=== PATIENT | male | born 1990 | race Caucasian/White ===

== ENCOUNTER 2023-07-02 14:58 | Inpatient (IN) ==
--- NOTE | 2023-07-02 15:21 | XRay Report ---
SINGLE VIEW CHEST CLINICAL HISTORY: Sepsis. FINDINGS: A PA chest radiograph is compared to study dated 05/15/2023. The cardiomediastinal silhouet te is unremarkable. Question mild patchy airspace opacities in the lingula. No pleural effusion or pn eumothorax is seen. The bony thorax is grossly intact. IMPRESSION: Question mild airspace opacities in the lingula. Correlate clinically for evidence of a m ild pneumonitis. Radiographic follow-up to resolution is recommended. ACT 112: Negative or not required by law. Electronically signed by: Sen Reis M.D. 07/02/2023 3:19 PM
--- NOTE | 2023-07-02 16:33 | Emergency Department Note ---
Impression & Plan Cellulitis of leg, History of intravenous drug abuse, Acute hyponatremia, Left lower lobe pneumonia ED Provider Note Provider: Allen Cohn MD DATE OF SERVICE: 07/02/2023 CHIEF COMPLAINT: Fever, wounds on legs HISTORY OF PRESENT ILLNESS: Patient is a 32-year-old gentleman history of IV drug use last use this past with fentanyl that he overdosed on last week. Evidently overdosed at the methadone clinic and thus has not returned to the last several days. States last 4 days he has had fevers as well as swelling and wounds of his legs. History of cellulitis and infection in his legs previously. Chronic swelling in the past as well. Worsening pain of the left lower leg in the right upper leg. Reports headache currently but denies striking his head. Denies significant chest pain but does with persistent questioning endorse a bit of shortness of breath. Denies abdominal pain. States he has not ate or drink much as he has been laying in bed for the last several days. Evidently promoted to come here today as father came to his residence and used a multifocal button grinder to cut open the door. PAST MEDICAL HISTORY: As noted above MEDICATIONS: Normally on methadone but not the last several days SOCIAL HISTORY: IV drug use with fentanyl PHYSICAL EXAM: GENERAL: alert and oriented in no acute distress on stretcher Head: normocephalic and atraumatic EYES: No injection, discharge or icterus. PERRL, EOMI. NECK: Trachea midline. Supple. ENT: Mucous membranes pink and moist. LUNGS: Airway patent. No retractions. Breath sounds clear with good air entry bilaterally. HEART: Regular rate and rhythm. No chest wall tenderness ABDOMEN: Soft and non-tender, without guarding or rebound. SKIN: Acyanotic, warm, dry, without rashes EXTREMITIES: Without swelling, tenderness or deformity NEUROLOGICAL: No focal deficits. No aphasia. No facial droop or slurred speech. Ambulatory. EK bpm sinus tachycardia. No PVC or PAC. No acute ST segment elevation or depression with QTc 422. EKG 2: 102 bpm sinus tachycardia. No PVC or PAC. No acute ST segment elevation or depression QTc 445. CONTINUOUS CARDIAC MONITORING: was ordered and showed a heart rate of 90s to 120s bpm in normal sinus rhythm to sinus tachycardia Patient's laboratory studies and imaging reviewed. Differential includes Infection, endocarditis, dehydration, metabolic abnormality, hypo/hyperglycemia, electrolyte disturbance, anemia, hypoxia, cardiac sources, toxicologic, neurologic, as well as other pathologies. IMPRESSION/MEDICAL DECISION MAKING: No significant focal neurological deficits. No trauma history reported. Scattered wounds in the extremities with erythema of the right thigh and left lower leg in particular noted without crepitus. Question cellulitis, sepsis, bacteremia, possible endocarditis. Does not seem meningitic at this time but does complain of a headache. Will obtain a CT scan of the head to exclude embolic phenomena or signs of bleeding although he does not report any trauma. Some chronic swelling of the legs but no hypoxia and low suspicion for acute heart failure or decompensation at this time or pulmonary embolism. Does report some shortness of breath on persistent questioning. Will cover broadly with cefepime and vancomycin in discussion with pharmacy. Given some IV fluid but a bit cautious given his history of fluid overload and swelling of his legs. Doubt given the bilateral nature and erythema around the wounds of his legs this represents DVT. Benign abdomen. Chest x-ray here questions a lingular infiltrate. Will obtain a CT of the chest for further differentiation and to exclude an occult embolism phenomenon with a history of IV drug use. Some Toradol given for pain given his history of narcotic abuse. Doubt this represents necrotizing fasciitis but likely a diffuse cellulitis. Does have a significant leukocytosis 27,000. Normal platelet count. Slightly worsened anemia of 10.8. Hyponatremia 126 is noted with some mild hypomagnesemia of 1.5. No significant renal dysfunction or anion gap. Lactate is normal. Doubt septic shock. Given additional IV fluids for total of 1.75 L normal saline. Avoiding additional aggressive IV fluid hydration due to his history of edema. Procalcitonin elevated 2.51. CT of the head and CT angiogram of the chest per radiology report somewhat compromised head CT but no evidence of acute intracranial bleed. CTA of the chest shows no PE but evidence of a left lobe pneumonia. Again receiving antibiotics. Not hypoxic here. Patient agreeable for admission. Again cover broadly with vancomycin and cefepime at this time. Given Tylenol for additional pain control as narcotics will likely be ineffective given his history of abuse here. Did have some recurrent chest discomfort already received some Toradol. Will give a small amount of morphine to see if it has some effect to help with discomfort. Hospitalist team contacted. DIAGNOSIS: History of IV drug use, sepsis, leg cellulitis, hyponatremia, left lower lobe pneumonia DISPOSITION: Hospitalist will evaluate Patient was agreeable with this plan. Past Med/Surg History Medical History Methamphetamine abuse Surgical History No pertinent past surgical history Social History Smoking Status: Current every day smoker Tobacco Type: Cigarettes Preferred Language: Latvian Feels Safe at Home: Yes Allergies Allergies Allergy/AdvReac Type Severity Reaction Status Date / Time chlorpromazine Allergy Severe facial Verified 07/02/23 16:43 [From Thorazine] swelling and agitation amoxicillin Allergy Intermediate leg and Verified 12/11/22 19:28 feet swelling Home Meds Home Medications Medication Instructions Recorded Confirmed No Known Home Medications 07/02/23 07/02/23 Results & Data (ED) Vital Signs Vital Signs - 24 hr 07/02/23 15:03 07/02/23 16:32 07/02/23 17:14 Temperature 38.2 C H Temperature Source Temporal Artery Scan Pulse Rate 116 H 110 H Pulse Rate [Apical] 107 H Pulse Rhythm Regular Pulse Strength Normal Respiratory Rate 18 26 H Respiratory Effort / Characteristics Non-Labored Spontaneous Respiratory Depth Normal Respiratory Pattern Regular Tachypnea Blood Pressure 120/69 Blood Pressure [Left Arm] 134/75 Blood Pressure Mean 86 Blood Pressure Mean [Left Arm] 94 Blood Pressure Position Sitting Pulse Oximetry 100 96 Oxygen Delivery Method Room Air Room Air Sepsis Recent Fever Within 48 Hours No Sepsis New/Unexplained Change in Mental Status No Sepsis Action Taken by Nursing Physician Notified 07/02/23 17:14 07/02/23 18:46 Temperature Temperature Source Pulse Rate 112 H Pulse Rate [Apical] 119 H Pulse Rhythm Regular Pulse Strength Respiratory Rate 24 24 Respiratory Effort / Characteristics Respiratory Depth Normal Respiratory Pattern Blood Pressure Blood Pressure [Left Arm] Blood Pressure Mean Blood Pressure Mean [Left Arm] Blood Pressure Position Pulse Oximetry 96 96 Oxygen Delivery Method Room Air Room Air Sepsis Recent Fever Within 48 Hours Sepsis New/Unexplained Change in Mental Status Sepsis Action Taken by Nursing Laboratory Data 07/02/23 16:54 07/02/23 16:54 Lab Results 07/02/23 Range/Units 16:54 WBC 27.55 H (4.8-10.8) K/ul RBC 3.84 L (4.70-6.10) M/uL Hgb 10.8 L (14.0-18.0) g/dl Hct 31.6 L (42.0-52.0) % MCV 82.3 (80.0-100.0) fL MCH 28.1 (25.0-34.0) pg MCHC 34.2 (32.0-36.0) g/dL RDW Std Deviation 39.4 (36.4-46.3) fL RDW Coeff of Randa 13.1 (11.5-14.5) % Plt Count 257 (130-400) K/uL MPV 9.7 (9.4-12.4) fL Immature Gran % (Auto) 2.2 % Neut % (Auto) 92.5 % Lymph % (Auto) 1.3 % Moore % (Auto) 3.8 % Eos % (Auto) 0.0 % Baso % (Auto) 0.2 % Neut # (Auto) 25.46 H (1.40-6.50) K/uL Lymph # (Auto) 0.37 L (1.20-3.40) K/uL Moore # (Auto) 1.05 H (0.11-0.59) K/uL Eos # (Auto) 0.00 (0.00-0.50) K/uL Baso # (Auto) 0.06 (0.00-0.20) K/uL Immature Gran # (Auto) 0.61 H (0.01-0.20) K/uL Dohle Bodies 1+ PT 13.1 H (9.0-12.0) Seconds INR 1.2 H (0.9-1.1) APTT 39 H (21-31) Seconds PTT Ratio 1.4 Sodium 126 L (136-145) mmol/L Potassium 3.6 (3.5-5.1) mmol/L Chloride 92 L (98-107) mmol/L Carbon Dioxide 26 (21-32) mmol/L Anion Gap 8 (3-11) BUN 12 (6-23) mg/dl Creatinine 0.78 (0.6-1.4) mg/dl Est Cr Clr Drug Dosing 149.2 ml/min Est GFR ( Amer) 138.4 ml/min Est GFR (Non-Af Amer) 119.4 ml/min BUN/Creatinine Ratio 15.4 (10-20) Glucose 105 H (70-99(Fasting)) mg/dl Lactate 1.9 (0.4-2.0) mmol/L Calcium 8.8 (8.6-10.3) mg/dl Magnesium 1.5 L (1.7-2.4) mg/dl Total Bilirubin 0.6 (0.2-1.0) mg/dl AST 25 (13-39) U/L ALT 24 (7-52) U/L Alkaline Phosphatase 65 (34-104) U/L Troponin I High Sens 9.5 (0-20) pg/ml Total Protein 6.1 (6.0-8.3) gm/dl Albumin 3.5 (3.4-5.0) gm/dl Globulin 2.6 (2.5-4.0) gm/dl Albumin/Globulin Ratio 1.3 (0.9-2) Procalcitonin 2.51 H (0-0.5) ng/ml Administered Medications Vancomycin HCl 1,750 mg/ (Sodium Chloride) 535 mls @ 200 mls/hr IV NOW ONE Stop: 07/02/23 19:59 Last Admin: 07/02/23 18:13 Dose: 200 mls/hr Documented By: MANUEL Discontinued Medications Acetaminophen (Acetaminophen 500 Mg Tab) 1,000 mg PO NOW STA Stop: 07/02/23 17:53 Last Admin: 07/02/23 18:13 Dose: 1,000 mg Documented By: MANUEL Sodium Chloride (Nss) 1,000 mls @ 999 mls/hr IV .Q1H1M ONE Stop: 07/02/23 17:59 Last Infusion: 07/02/23 18:25 Dose: Infused Documented By: Admin: 07/02/23 17:19 Dose: 999 mls/hr Documented By: MANUEL Cefepime HCl (Maxipime) 2,000 mg in 20 mls @ 5 mls/min IV NOW STA; Protocol Stop: 07/02/23 17:04 Last Admin: 07/02/23 17:19 Dose: 5 mls/min Documented By: MANUEL Sodium Chloride (Nss) 1,000 mls @ 999 mls/hr IV .Q1H1M ONE Stop: 07/02/23 18:35 Last Admin: 07/02/23 18:26 Dose: Not Given Documented By: MANUEL Sodium Chloride (Nss) 500 mls @ 999 mls/hr IV .Q31M ONE Stop: 07/02/23 18:05 Last Admin: 07/02/23 18:12 Dose: 999 mls/hr Documented By: MANUEL Sodium Chloride (Nss) 250 mls @ 999 mls/hr IV .Q16M ONE Stop: 07/02/23 17:50 Last Infusion: 07/02/23 18:41 Dose: Infused Documented By: Admin: 07/02/23 18:12 Dose: 999 mls/hr Documented By: MANUEL Magnesium Sulfate/Dextrose (Magnesium Sulfate / D5w) 1 gm in 100 mls @ 200 mls/hr IV Q30M ANIBAL Stop: 07/02/23 18:44 Last Admin: 07/02/23 18:13 Dose: 200 mls/hr Documented By: MANUEL Ioversol (Optiray 320 125ml) 109 ml IV ONCE ONE Stop: 07/02/23 18:34 Last Admin: 07/02/23 18:34 Dose: 109 ml Documented By: KATIUSKA Ketorolac Tromethamine (Ketorolac Tromethamine 15 Mg/Ml Vial) 15 mg IV NOW STA Stop: 07/02/23 17:00 Last Admin: 07/02/23 17:19 Dose: 15 mg Documented By: MANUEL Imaging Data Radiologist's Impression: Chest X-Ray 07/02/23 15:06 SINGLE VIEW CHEST CLINICAL HISTORY: Sepsis. FINDINGS: A PA chest radiograph is compared to study dated 05/15/2023. The cardiomediastinal silhouette is unremarkable. Question mild patchy airspace opacities in the lingula. No pleural effusion or pneumothorax is seen. The bony thorax is grossly intact. IMPRESSION: Question mild airspace opacities in the lingula. Correlate clinically for evidence of a mild pneumonitis. Radiographic follow-up to resolution is recommended. ACT 112: Negative or not required by law. Electronically signed by: Sen Reis M.D. 07/02/2023 3:[address] 07/02/23 17:00 CT SCAN OF THE BRAIN WITHOUT IV CONTRAST CLINICAL HISTORY: Headache. Fever. IV drug use. COMPARISON STUDY: CT of the brain dated 05/15/2023. TECHNIQUE: Unenhanced axial CT scan of the brain is performed from the vertex to the skull base. A dose lowering technique was utilized adhering to the principles of ALARA. The patient was scanned twice due to motion artifact. FINDINGS: Brain parenchyma: The brain parenchyma is normal in appearance. There is no hemorrhage, mass effect, or evidence of acute territorial ischemia by CT criteria. Acosta-white matter differentiation is preserved. No extra-axial fluid collection is seen. Ventricles, sulci, cisterns: Normal in configuration. Intracranial vasculature: The visualized intracranial vasculature at the skull base is normal in appearance. Calvarium: Unremarkable. Sinuses and mastoids: The visualized paranasal sinuses are clear. The mastoid air cells are well pneumatized. Orbits: The bony orbits are grossly intact. IMPRESSION: There is no hemorrhage, mass effect, or evidence of acute territorial ischemia by CT criteria. ACT 112: Negative or not required by law. Electronically signed by: Sen Reis M.D. 07/02/2023 6:45 PM Chest CTA 07/02/23 17:16 CT ANGIOGRAM OF THE CHEST CLINICAL HISTORY: Fever. Edema. History of intravenous drug use. COMPARISON STUDY: Chest x-ray dated 07/02/2023 TECHNIQUE: Following the IV administration of 109 cc of Optiray 320, CT angiogram of the chest was performed from the upper abdomen to the thoracic inlet utilizing the pulmonary embolus protocol. Images are reviewed in the axial, sagittal, and coronal planes. 3-D MIPS images are created and assessed. IV contrast was administered without complication. A dose lowering technique was utilized adhering to the principles of ALARA. The examination is degraded by suboptimal contrast opacification of the pulmonary arteries. There is also motion artifact. CT DOSE: 1879.44 mGy.cm FINDINGS: Thyroid: Imaged portions of the thyroid gland are normal in size and attenuation. Thoracic aorta: The thoracic aorta is normal in caliber and demonstrates standard 3-vessel arch anatomy. No dissection is seen. Pulmonary vasculature: The pulmonary trunk is normal in caliber. There are no filling defects identified in main, lobar, or proximal segmental pulmonary branches to suggest pulmonary embolus. Evaluation of the peripheral branches is degraded by motion artifact and lack of contrast opacification. Heart: The heart is mildly enlarged and without pericardial effusion. Lungs and pleural spaces: Evaluation of the lung parenchyma is degraded by motion artifact. There is patchy airspace consolidation in the left lower lobe and lingula typical for pneumonia. There is trace left pleural effusion. The right lung appears clear. The trachea and central airways are patent. Mediastinum: There are numerous prominent mediastinal lymph nodes which measure up to 9 mm in short axis. Ailyn: Clear. Axillae: There is no axillary lymphadenopathy. Upper abdomen: The spleen is mildly enlarged measuring 13.5 cm in length. Partially visualized upper abdominal viscera is otherwise grossly unremarkable. Skeletal structures: No lytic or blastic bony lesions are seen. Soft tissues: Gynecomastia is noted. IMPRESSION: 1. There is no evidence of central pulmonary embolus in the main, lobar, or proximal segmental pulmonary arteries. The distal segmental and subsegmental branches are not well assessed. 2. Airspace consolidation in the left lower lobe and lingula is typical for pneumonia. Clinical correlation will be required and radiographic follow-up to resolution is recommended. 3. Trace of pleural effusion. 4. There are numerous prominent mediastinal lymph nodes which are nonspecific and likely reactive. 5. Mild splenomegaly. 6. Additional findings as above. ACT 112: Negative or not required by law. Electronically signed by: Sen Reis M.D. 07/02/2023 7:02 PM Discharge Plan Visit Data Chief Complaint: Edema To Extremity Stated Complaint: EDEMA BILAT ANKLES ED Provider: Allen Cohn Discharge Problem: Cellulitis of leg, History of intravenous drug abuse, Acute hyponatremia, Left lower lobe pneumonia Patient Disposition: Being Evaluated by Hospitalist Forms Stand Alone Forms: [facility] Prescriptions Prescriptions: No Action No Known Home Medications Referrals Referrals: Nir Lucio MD [Primary Care Provider] - Discharge Problem: Cellulitis of leg Qualifiers: Laterality: unspecified laterality Qualified Code(s): L03.119 - Cellulitis of unspecified part of limb Left lower lobe pneumonia Qualifiers: Pneumonia type: due to unspecified organism Qualified Code(s): J18.9 - Pneumonia, unspecified organism
[2023-07-02] MEDS ORDERED: PIPERACILLIN/TAZOBACTAM 4.5 GM/100 ML BAG IV ONE (16:59)
[2023-07-02] MEDS ORDERED: Patient's HEIGHT &/or WEIGHT Needed STA (17:02)
[2023-07-02 17:16] LABS: Hematocrit (blood only) 31.6 % (42.0-52.0); Hemoglobin 10.8 g/dl (14.0-18.0); Mean Corpuscular Hemoglobin 28.1 pg (25.0-34.0); Mean Corpuscular Hgb Conc 34.2 g/dL (32.0-36.0); Mean Corpuscular Volume 82.3 fL (80.0-100.0); Mean Platelet Volume 9.7 fL (9.4-12.4); Platelet Count 257 K/uL (130-400); RDW Coefficient of Variation 13.1 % (11.5-14.5); RDW Standard Deviation 39.4 fL (36.4-46.3); Red Blood Count 3.84 M/uL (4.70-6.10); White Blood Count 27.55 K/ul (4.8-10.8)
[2023-07-02] MEDS: CEFEPIME 2,000 MG/20 ML VIAL IV STA (17:19)
[2023-07-02] MEDS: SODIUM CHLORIDE 0.9% 1,000 ML IV ONE ×2 (17:19→18:26)
[2023-07-02] MEDS ORDERED: VANCOMYCIN CONSULT ACTIVE PRN (17:19)
[2023-07-02] MEDS: KETOROLAC TROMETHAMINE 15 MG/ML VIAL IV STA (17:19)
[2023-07-02 17:33] LABS: Albumin Globulin Ratio 1.3 (0.9-2); Albumin Level 3.5 gm/dl (3.4-5.0); BUN Creatinine Ratio 15.4 (10-20); Bilirubin,Total 0.6 mg/dl (0.2-1.0); Calcium 8.8 mg/dl (8.6-10.3); Creatinine Clr Calc Pharmacy 149.2 ml/min; Est GFR (African American) 138.4 ml/min; Est GFR (Non-African American) 119.4 ml/min; Globulin 2.6 gm/dl (2.5-4.0); Magnesium 1.5 mg/dl (1.7-2.4); Potassium 3.6 mmol/L (3.5-5.1); Total Protein 6.1 gm/dl (6.0-8.3)
[2023-07-02 17:35] LABS: Basophils # (auto) 0.06 K/uL (0.00-0.20); Basophils % (auto) 0.2 %; Dohle Bodies 1+; Immature Granulocytes # (auto) 0.61 K/uL (0.01-0.20); Immature Granulocytes % (auto) 2.2 %; Lymphocytes # (auto) 0.37 K/uL (1.20-3.40); Lymphocytes % (auto) 1.3 %; Monocytes # (auto) 1.05 K/uL (0.11-0.59); Monocytes % (auto) 3.8 %; Neutrophils # (auto) 25.46 K/uL (1.40-6.50); Neutrophils % (auto) 92.5 %
[2023-07-02 17:39] LABS: Troponin I High Sensitivity 9.5 pg/ml (0-20)
[2023-07-02 17:43] LABS: INR 1.2 (0.9-1.1); Partial Thromboplastin Ratio 1.4; Partial Thromboplastin Time 39 Seconds (21-31); Prothrombin Time 13.1 Seconds (9.0-12.0)
[2023-07-02] MEDS: SODIUM CHLORIDE 0.9% 250 ML IV ONE (18:12)
[2023-07-02] MEDS: SODIUM CHLORIDE 0.9% 500 ML IV ONE (18:12)
[2023-07-02] MEDS: MAGNESIUM SULFATE / D5W 1 GM/100 ML BAG IV SCH (18:13)
[2023-07-02] MEDS: VANCOMYCIN HCL 1,750 MG in SODIUM CHLORIDE 0.9% 500 ML IV ONE (18:13)
[2023-07-02] MEDS: ACETAMINOPHEN 500 MG TAB PO STA (18:13)
[2023-07-02] MEDS: OPTIRAY 320 125ml IV ONE (18:34)
--- NOTE | 2023-07-02 18:46 | CT Scan Report ---
CT SCAN OF THE BRAIN WITHOUT IV CONTRAST CLINICAL HISTORY: Headache. Fever. IV drug use. COMPARISON STUDY: CT of the brain dated 05/15/2023. TECHNIQUE: Unenhanced axial CT scan of the brain is performed from the vertex to the skull base. A d ose lowering technique was utilized adhering to the principles of ALARA. The patient was scanned twic e due to motion artifact. FINDINGS: Brain parenchyma: The brain parenchyma is normal in appearance. There is no hemorrhage, mass effect, or evidence of acute territorial ischemia by CT criteria. Acosta-white matter differentiation is preser amanda. No extra-axial fluid collection is seen. Ventricles, sulci, cisterns: Normal in configuration. Intracranial vasculature: The visualized intracranial vasculature at the skull base is normal in appe arance. Calvarium: Unremarkable. Sinuses and mastoids: The visualized paranasal sinuses are clear. The mastoid air cells are well pneu matized. Orbits: The bony orbits are grossly intact. IMPRESSION: There is no hemorrhage, mass effect, or evidence of acute territorial ischemia by CT liane [place]. ACT 112: Negative or not required by law. Electronically signed by: Sen Reis M.D. 07/02/2023 6:45 PM
--- NOTE | 2023-07-02 19:04 | CT Scan Report ---
CT ANGIOGRAM OF THE CHEST CLINICAL HISTORY: Fever. Edema. History of intravenous drug use. COMPARISON STUDY: Chest x-ray dated 07/02/2023 TECHNIQUE: Following the IV administration of 109 cc of Optiray 320, CT angiogram of the chest was pe rformed from the upper abdomen to the thoracic inlet utilizing the pulmonary embolus protocol. Images are reviewed in the axial, sagittal, and coronal planes. 3-D MIPS images are created and assessed. I V contrast was administered without complication. A dose lowering technique was utilized adhering to the principles of ALARA. The examination is degraded by suboptimal contrast opacification of the pul monary arteries. There is also motion artifact. CT DOSE: 1879.44 mGy.cm FINDINGS: Thyroid: Imaged portions of the thyroid gland are normal in size and attenuation. Thoracic aorta: The thoracic aorta is normal in caliber and demonstrates standard 3-vessel arch anato my. No dissection is seen. Pulmonary vasculature: The pulmonary trunk is normal in caliber. There are no filling defects identif ied in main, lobar, or proximal segmental pulmonary branches to suggest pulmonary embolus. Evaluation of the peripheral branches is degraded by motion artifact and lack of contrast opacification. Heart: The heart is mildly enlarged and without pericardial effusion. Lungs and pleural spaces: Evaluation of the lung parenchyma is degraded by motion artifact. There is patchy airspace consolidation in the left lower lobe and lingula typical for pneumonia. There is trac e left pleural effusion. The right lung appears clear. The trachea and central airways are patent. Mediastinum: There are numerous prominent mediastinal lymph nodes which measure up to 9 mm in short a xis. Ailyn: Clear. Axillae: There is no axillary lymphadenopathy. Upper abdomen: The spleen is mildly enlarged measuring 13.5 cm in length. Partially visualized upper abdominal viscera is otherwise grossly unremarkable. Skeletal structures: No lytic or blastic bony lesions are seen. Soft tissues: Gynecomastia is noted. IMPRESSION: 1. There is no evidence of central pulmonary embolus in the main, lobar, or proximal segmental pulmon jasper arteries. The distal segmental and subsegmental branches are not well assessed. 2. Airspace consolidation in the left lower lobe and lingula is typical for pneumonia. Clinical corre lation will be required and radiographic follow-up to resolution is recommended. 3. Trace of pleural effusion. 4. There are numerous prominent mediastinal lymph nodes which are nonspecific and likely reactive. 5. Mild splenomegaly. 6. Additional findings as above. ACT 112: Negative or not required by law. Electronically signed by: Sen Reis M.D. 07/02/2023 7:02 PM
[2023-07-02] MEDS: MoRPHine SULFATE 4 MG/ML 1 ML CARP\\VIAL IV STA (19:34)
[2023-07-02 20:02] LABS: Thyroid Stimulating Hormone 1.165 uIu/ml (0.300-4.500)
--- NOTE | 2023-07-02 20:19 | History & Physical Report ---
Date of Service July 02, 2023 Assessment & Plan (1) Sepsis: Plan: Multifactorial: Community-acquired pneumonia possible aspiration due to recent fentanyl overdose Recurrent LE cellulitis (left greater than the right) secondary to IVDU, rule out LLE abscess/osteomyelitis, rule out DVT Rule out endocarditis UGIB History GERD, not on maintenance medication Melanotic stool noted on rectal exam at the ER Acute on chronic anemia secondary to above Hyponatremia secondary to illness, diuretic prescription from recent ER visit chronic pain on methadone, methadone from local clinic currently on hold due to substance abuse HCV status post Mavyret Rx mood disorder, not on maintenance medications, patient denies suicidality Narcotic induced constipation ongoing tobacco abuse Medical telemetry CS, Doxycycline, Cefepime, Flagyl CT left lower extremity with contrast (12 hours after IV contrast for CT PE study cleared) re: recurrent swelling rule out abscess May need MRI to definitely rule out osteomyelitis if CT negative LE venous Dopplers rule out DVT TTE Re: Chest pain rule out endocarditis Further management contingent on workup results IV PPI, GI consult for UGIB N.p.o. after midnight in anticipation of endoscopy in a.m. Anemia workup, transfuse PRBC if hemoglobin less than 7 and or for symptomatic anemia Hyponatremia workup Follow serum sodium after multiple fluid boluses given at the ER Judicious narcotic use in light of drug abuse history Bowel regimen Nicotine patch as needed DVT prophylaxis. SCDs if no DVT on ultrasound Re: GI bleed Full code Text document was generated using Zady voice recognition software. It may contain grammatical or spelling errors. Kindly contact undersigned for clarification of any documentation item in question. History of Present Illness Chief Complaint: Fever, weakness, worsening leg swelling Primary Care Provider: Nir Lucio MD History obtained from patient and records. Medical history significant for chronic pain on methadone, HCV status post Mavyret Rx, GERD, mood disorder, chronic anemia (baseline hemoglobin 11-12), ongoing tobacco abuse. Patient seen at PCP's office on 2 occasions last year for leg cellulitis. Admits to shooting drugs into his veins. Leg swelling improved with outpatient antibiotic courses. Recent [facility] ER visit last month for shortness of breath, bilateral leg swelling and syncope. Swelling improved with Bactrim, Augmentin, and Lasix Rx. Patient noted bilateral leg swelling more on the left than the last week. No abdominal distention, patient actually losing weight. No fever, no chills. Patient methadone currently on hold from local methadone clinic due to patient presenting at the clinic "high on other drugs" 4 days ago. Admits to snorting fentanyl leading to overdose night before he went to clinic. Increased weakness over the last few days. Junky cough productive of yellow sputum. Denies aspiration. Not sure about sick contacts. Patient completed COVID-19 vaccination. Fever chills at home. Achy headache and chest pain symptoms from coughing. No abdominal pain or emesis symptoms. No BM for 1 week as per patient. Denies OTC NSAID intake Patient found at home by father to be weak and sick looking. Patient brought to ER for evaluation. NSS, Cefepime and Vancomycin administered at the ER. 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 Allergy/AdvReac Type Severity Reaction Status Date / Time chlorpromazine Allergy Severe facial Verified 07/02/23 16:43 [From Thorazine] swelling and agitation amoxicillin Allergy Intermediate leg and Verified 12/11/22 19:28 feet swelling Home Medications Medication Instructions Recorded Confirmed Type methadone 200 mg PO DAILY 07/02/23 07/02/23 History Past Med/Surg History Medical History Methamphetamine abuse Surgical History No pertinent past surgical history Social History Smoking Status: Current every day smoker Tobacco Type: Cigarettes Preferred Language: [place] Citizen Feels Safe at Home: Yes Review of Systems Review of Systems: As per HPI, all other systems reviewed and negative Physical Exam Physical Exam: GENERAL: Comfortable, pleasant, ill-appearing, no respiratory distress SKIN: Multiple dark papular lesions noted over extremities and trunk, pallor, warm HEENT: Pale palpebral conjunctivae, no ptosis, dry buccal mucosa NECK : Supple, no tenderness CHEST : CTA, no tenderness HEART : RRR, no obvious murmurs ABDOMEN: Some distention, nontender RECTAL : Intact sphincter, melanotic stool (FOBT positive) EXTREMITIES : Bilateral LE swelling, LLE erythema with minimal tenderness, no other conspicuous deformities noted NEUROLOGIC : Coherent, no facial asymmetry, no other gross focality Results & Data Results & Data Vital Signs (Past 12 Hours) Vital Signs Temp Pulse Pulse Resp BP BP Pulse Ox 07/02/23 20:00 37.2 C 95 H 22 110/64 98 07/02/23 19:43 97 07/02/23 18:46 119 H 24 96 07/02/23 17:14 112 H 24 96 07/02/23 17:14 107 H 26 H 134/75 96 07/02/23 16:32 110 H 07/02/23 15:03 38.2 C H 116 H 18 120/69 100 O2 Del Method 07/02/23 20:00 Room Air 07/02/23 19:43 Room Air 07/02/23 18:46 Room Air 07/02/23 17:14 Room Air 07/02/23 17:14 Room Air 07/02/23 16:32 07/02/23 15:03 Room Air Laboratory Results Laboratory Results WBC 27.55 K/ul (4.8-10.8) H 07/02/23 16:54 RBC 3.84 M/uL (4.70-6.10) L 07/02/23 16:54 Hgb 10.8 g/dl (14.0-18.0) L 07/02/23 16:54 Hct 31.6 % (42.0-52.0) L 07/02/23 16:54 MCV 82.3 fL (80.0-100.0) 07/02/23 16:54 MCH 28.1 pg (25.0-34.0) 07/02/23 16:54 MCHC 34.2 g/dL (32.0-36.0) 07/02/23 16:54 RDW Std Deviation 39.4 fL (36.4-46.3) 07/02/23 16:54 RDW Coeff of Randa 13.1 % (11.5-14.5) 07/02/23 16:54 Plt Count 257 K/uL (130-400) 07/02/23 16:54 MPV 9.7 fL (9.4-12.4) 07/02/23 16:54 Immature Gran % (Auto) 2.2 % 07/02/23 16:54 Neut % (Auto) 92.5 % 07/02/23 16:54 Lymph % (Auto) 1.3 % 07/02/23 16:54 Drew % (Auto) 3.8 % 07/02/23 16:54 Eos % (Auto) 0.0 % 07/02/23 16:54 Baso % (Auto) 0.2 % 07/02/23 16:54 Neut # (Auto) 25.46 K/uL (1.40-6.50) H 07/02/23 16:54 Lymph # (Auto) 0.37 K/uL (1.20-3.40) L 07/02/23 16:54 Drew # (Auto) 1.05 K/uL (0.11-0.59) H 07/02/23 16:54 Eos # (Auto) 0.00 K/uL (0.00-0.50) 07/02/23 16:54 Baso # (Auto) 0.06 K/uL (0.00-0.20) 07/02/23 16:54 Immature Gran # (Auto) 0.61 K/uL (0.01-0.20) H 07/02/23 16:54 Dohle Bodies 1+ 07/02/23 16:54 PT 13.1 Seconds (9.0-12.0) H 07/02/23 16:54 INR 1.2 (0.9-1.1) H 07/02/23 16:54 APTT 39 Seconds (21-31) H 07/02/23 16:54 PTT Ratio 1.4 07/02/23 16:54 Sodium 126 mmol/L (136-145) L 07/02/23 16:54 Potassium 3.6 mmol/L (3.5-5.1) 07/02/23 16:54 Chloride 92 mmol/L (98-107) L 07/02/23 16:54 Carbon Dioxide 26 mmol/L (21-32) 07/02/23 16:54 Anion Gap 8 (3-11) 07/02/23 16:54 BUN 12 mg/dl (6-23) 07/02/23 16:54 Creatinine 0.78 mg/dl (0.6-1.4) 07/02/23 16:54 Est Cr Clr Drug Dosing 149.2 ml/min 07/02/23 16:54 Est GFR ( Amer) 138.4 ml/min 07/02/23 16:54 Est GFR (Non-Af Amer) 119.4 ml/min 07/02/23 16:54 BUN/Creatinine Ratio 15.4 (10-20) 07/02/23 16:54 Glucose 105 mg/dl (70-99(Fasting)) H 07/02/23 16:54 Osmolality 262 mOsm/kg (280-300) L 07/02/23 16:54 Lactate 1.9 mmol/L (0.4-2.0) 07/02/23 16:54 Calcium 8.8 mg/dl (8.6-10.3) 07/02/23 16:54 Magnesium 1.5 mg/dl (1.7-2.4) L 07/02/23 16:54 Total Bilirubin 0.6 mg/dl (0.2-1.0) 07/02/23 16:54 AST 25 U/L (13-39) 07/02/23 16:54 ALT 24 U/L (7-52) 07/02/23 16:54 Alkaline Phosphatase 65 U/L (34-104) 07/02/23 16:54 Troponin I High Sens 9.5 pg/ml (0-20) 07/02/23 16:54 Total Protein 6.1 gm/dl (6.0-8.3) 07/02/23 16:54 Albumin 3.5 gm/dl (3.4-5.0) 07/02/23 16:54 Globulin 2.6 gm/dl (2.5-4.0) 07/02/23 16:54 Albumin/Globulin Ratio 1.3 (0.9-2) 07/02/23 16:54 Procalcitonin 2.51 ng/ml (0-0.5) H 07/02/23 16:54 TSH 1.165 uIu/ml (0.300-4.500) 07/02/23 16:54 Impressions Chest X-Ray 07/02/23 15:06 SINGLE VIEW CHEST CLINICAL HISTORY: Sepsis. FINDINGS: A PA chest radiograph is compared to study dated 05/15/2023. The cardiomediastinal silhouette is unremarkable. Question mild patchy airspace opacities in the lingula. No pleural effusion or pneumothorax is seen. The bony thorax is grossly intact. IMPRESSION: Question mild airspace opacities in the lingula. Correlate clinically for evidence of a mild pneumonitis. Radiographic follow-up to resolution is recommended. ACT 112: Negative or not required by law. Electronically signed by: Sen Reis M.D. 07/02/2023 3:[address] 07/02/23 17:00 CT SCAN OF THE BRAIN WITHOUT IV CONTRAST CLINICAL HISTORY: Headache. Fever. IV drug use. COMPARISON STUDY: CT of the brain dated 05/15/2023. TECHNIQUE: Unenhanced axial CT scan of the brain is performed from the vertex to the skull base. A dose lowering technique was utilized adhering to the principles of ALARA. The patient was scanned twice due to motion artifact. FINDINGS: Brain parenchyma: The brain parenchyma is normal in appearance. There is no hemorrhage, mass effect, or evidence of acute territorial ischemia by CT criteria. Acosta-white matter differentiation is preserved. No extra-axial fluid collection is seen. Ventricles, sulci, cisterns: Normal in configuration. Intracranial vasculature: The visualized intracranial vasculature at the skull base is normal in appearance. Calvarium: Unremarkable. Sinuses and mastoids: The visualized paranasal sinuses are clear. The mastoid air cells are well pneumatized. Orbits: The bony orbits are grossly intact. IMPRESSION: There is no hemorrhage, mass effect, or evidence of acute territorial ischemia by CT criteria. ACT 112: Negative or not required by law. Electronically signed by: Sen Reis M.D. 07/02/2023 6:45 PM Chest CTA 07/02/23 17:16 CT ANGIOGRAM OF THE CHEST CLINICAL HISTORY: Fever. Edema. History of intravenous drug use. COMPARISON STUDY: Chest x-ray dated 07/02/2023 TECHNIQUE: Following the IV administration of 109 cc of Optiray 320, CT angiogram of the chest was performed from the upper abdomen to the thoracic inlet utilizing the pulmonary embolus protocol. Images are reviewed in the axial, sagittal, and coronal planes. 3-D MIPS images are created and assessed. IV contrast was administered without complication. A dose lowering technique was utilized adhering to the principles of ALARA. The examination is degraded by suboptimal contrast opacification of the pulmonary arteries. There is also motion artifact. CT DOSE: 1879.44 mGy.cm FINDINGS: Thyroid: Imaged portions of the thyroid gland are normal in size and attenuation. Thoracic aorta: The thoracic aorta is normal in caliber and demonstrates standard 3-vessel arch anatomy. No dissection is seen. Pulmonary vasculature: The pulmonary trunk is normal in caliber. There are no filling defects identified in main, lobar, or proximal segmental pulmonary branches to suggest pulmonary embolus. Evaluation of the peripheral branches is degraded by motion artifact and lack of contrast opacification. Heart: The heart is mildly enlarged and without pericardial effusion. Lungs and pleural spaces: Evaluation of the lung parenchyma is degraded by motion artifact. There is patchy airspace consolidation in the left lower lobe and lingula typical for pneumonia. There is trace left pleural effusion. The right lung appears clear. The trachea and central airways are patent. Mediastinum: There are numerous prominent mediastinal lymph nodes which measure up to 9 mm in short axis. Ailyn: Clear. Axillae: There is no axillary lymphadenopathy. Upper abdomen: The spleen is mildly enlarged measuring 13.5 cm in length. Partially visualized upper abdominal viscera is otherwise grossly unremarkable. Skeletal structures: No lytic or blastic bony lesions are seen. Soft tissues: Gynecomastia is noted. IMPRESSION: 1. There is no evidence of central pulmonary embolus in the main, lobar, or proximal segmental pulmonary arteries. The distal segmental and subsegmental branches are not well assessed. 2. Airspace consolidation in the left lower lobe and lingula is typical for pneumonia. Clinical correlation will be required and radiographic follow-up to resolution is recommended. 3. Trace of pleural effusion. 4. There are numerous prominent mediastinal lymph nodes which are nonspecific and likely reactive. 5. Mild splenomegaly. 6. Additional findings as above. ACT 112: Negative or not required by law. Electronically signed by: Sen Reis M.D. 07/02/2023 7:02 PM
[2023-07-02] MEDS: DOXYCYCLINE HYCLATE 100 MG in DEXTROSE 5% MINI-B 100 ML IV STA (20:20)
[2023-07-02 20:46] LABS: Influenza A virus by PCR Negative (Neg); Influenza B virus by PCR Negative (Neg); RSV by PCR Negative (Neg); SARS CoV2 RNA(COVID-19) Ceph NEGATIVE (Negative)
[2023-07-02] MEDS: metroNIDAZOLE 500 MG/100 ML BAG IV STA (20:52)
[2023-07-02] MEDS: DOCUSATE SODIUM/SENNA 50/8.6MG TAB PO SCH (20:52)
[2023-07-02] MEDS: POLYETHYLENE (MIRALAX) 17 GM PACK PO STA (20:52)
[2023-07-02] MEDS: ACETAMINOPHEN W/CODEINE #3 1 TAB PO PRN (21:01)
[2023-07-02 22:03] LABS: Appearance Urine Clear (Clear); Bilirubin Urine Negative (Negative); Blood Urine Negative (Negative); Color Urine Yellow; Glucose Urine UA Negative (Negative); Ketones Urine Negative (Negative); Leukocyte Esterase Urine Trace (Negative); Nitrite Urine Negative (Negative); Protein Urine Negative (Negative); Specific Gravity Urine 1.038 (1.000-1.030); Urobilinogen Urine Negative (Negative)
[2023-07-02 22:22] LABS: Amphetamines+Metham, Urine Pos (Neg); Barbiturates, Urine Neg (Neg); Benzodiazepine, Urine Neg (Neg); Cocaine, Urine Neg (Neg); MDMA (Ecstacy), Urine Pos (Neg); Marijuana, Urine Neg (Neg); Methadone, Urine Pos (Neg); Opiate, Urine Pos (Neg); Phencyclidine, Urine Neg (Neg)
[2023-07-02 22:25] LABS: Bacteria Urine Automated Negative (Negative); Cast Urine Automated 0 /lpf (0-5); Epithelial Cell Urine Auto 0-5 /lpf (0-5); RBC Urine Automated 0-4 /hpf (0-4)
[2023-07-02] MEDS: PANTOprazole 80 MG in DEXTROSE 5% 100 ML IV STA (22:35)
[2023-07-02 23:31] LABS: Hematocrit (blood only) 30.6 % (42.0-52.0); Hemoglobin 10.4 g/dl (14.0-18.0); Reticulocyte % 1.13 % (0.50-2.00); Reticulocytes # 0.04 10^6/uL (0.020-0.100)
--- NOTE | 2023-07-02 23:36 | Ultrasound Report ---
Exam(s): US VENOUS RIGHT LOWER EXTREMITY EXAM: US Duplex Right Lower Extremity Veins CLINICAL HISTORY: Reason for exam: leg swelling. TECHNIQUE: Real-time duplex ultrasound scan of the right lower extremity veins integrating B-mode two-dimensional vascular structure, Doppler spectral analysis, color flow Doppler imaging and compression. COMPARISON: 12/07/2022. FINDINGS: Deep veins: Unremarkable. No DVT in the visualized common femoral, femoral, proximal deep femoral or popliteal veins. The veins demonstrate normal color flow, are normally compressible, with normal phasic flow and/or augmentation response. Superficial veins: Unremarkable. No thrombus in the visualized great saphenous vein. Soft tissues: No acute findings. No popliteal cyst. Lymph nodes: The bone enlarged lymph nodes, largest lymph node in the right groin measuring 4.0 x 1.6 x 1.8 cm consistent with lymphadenopathy, etiology indeterminate. Other findings: The patient refused examination of the left lower extremity. IMPRESSION: No ultrasonographic evidence of deep venous thrombosis involving the right lower extremity. Electronically signed by: Katei Sequeira MD 07/02/23 23:35 PM
--- OUTSIDE RECORDS SUMMARY | 2023-07-02 23:38 | External Medical Summary | Summary of Care ---
Author Name Unknown Organization [facility] Address [address] [place] [address] Phone [phone] Care Team Providers Care Freight Forwarder Name Role Phone Nir Lucio MD Primary Care Provider [phone] Encounter Details Date Type Department Care Team (Latest Contact Info) Description 06/12/2023 3:20 PM EST Telemedicine Family Practice [facility] [address] [place] [id number] Sabino Whitten MD [address] [place] [address] Polysubstance abuse (HCC)* Allergies Active Allergy Reactions Criticality Noted Date Comments Chlorpromazine Other (Please comment) 5 Facial Swelling, Agitation documented as of this encounter (statuses as of 06/12/2023) Medications Medication Sig Dispensed Refills Start Date End Date Status Buprenorphine HCl 8 MG Sublingual Tablet Sublingual (Subutex)Indications :pt taking 3 tablets three times daily Place 1 Tablet under the tongue in the morning and 1 Tablet before bedtime. 1 tab in am and 1 tab in pm . 0 Active Benzonatate 100 MG Oral Capsule (Tessalon Perles) Take 1 Capsule by mouth 3 times a day as needed for Cough. Do not cut, crush, or chew. 50 Capsule 1 02/07/2023 Active Methadone 50 mg/ml oral soln (ECH) Take 2.88 mL by mouth. 0 Active documented as of this encounter (statuses as of 06/12/2023) Active Problems Problem Noted Date Diagnosed Date Polysubstance abuse 06/12/2023 Methamphetamine abuse 03/06/2023 Acne necrotica 03/06/2023 IV drug abuse 02/07/2023 Tobacco use disorder 02/06/2023 Morbid obesity 08/30/2015 Chronic hepatitis C 02/04/2013 Overview: Followed by GI documented as of this encounter (statuses as of 06/12/2023) Resolved Problems Problem Noted Date Diagnosed Date Resolved Date History of intravenous drug use in remission 3 02/07/2023 Overview: On subutex Opioid use disorder, moderate, dependence 12/13/2017 01/25/2021 Bilateral carpal tunnel syndrome 07/04/2016 01/26/2021 Overview: + EMG 10/22/2013 - has been using braces w/ good effect. Cigarette smoker 08/30/2015 02/06/2023 Overview: Quit 02/2015 - resumed December 2015 Bipolar 2 disorder 08/30/2015 3 Overview: Followed by Dr. Vargas - [facility] Dyshidrotic eczema 11/24/2014 7 Acne 11/24/2014 10/03/2016 Chewing tobacco use 03/04/2013 02/07/20 23 Opioid type dependence, continuous 03/04/2013 02/06/2023 Overview: H/O IVDA - on subutex Rash and nonspecific skin eruption 2007 10/03/2016 documented as of this encounter (statuses as of 06/12/2023) Immunizations Name Administration Dates Next Due TDAP (age 10 and older)(Boostrix) 01/26/2021 documented as of this encounter Social History Tobacco Use Types Packs/Day Years Used Date Smoking Tobacco: Every Day Cigarettes 0.3 1 Started: 01/03/2016 Smokeless Tobacco: Current Snuff Comments:1 can per day Alcohol Use Standard Drinks/Week Comments No 0 (1 standard drink = 0.6 oz pur e alcohol) Hunger Vital Sign Answer Date Recorded Within the past 12 months, y ou worried that your food would run out before you got the money to buy more. Never true 02/08/20 23 Within the past 12 months, t he food you bought just didn't last and you didn't have money to get more. Never true 02/07/2023 Sex and Gender Information Value Date Recorded Sex Assigned at Male 02/07/2023 3:03 PM EDT Gender Identity Male 02/07/2023 3:03 PM EDT Sexual Orientation Straight 02/07/2023 3: 03 PM EDT Job Start Date Occupation Industry Not on file Not on file Not on file documented as of this encounter Progress Notes * Sabino Whitten MD - 06/12/2023 3:40 PM EST Patient location: HOME. I was in a hospital or clinic location. After connecting through televideo,patient was verified with two unique identifiers. 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 Methods to assure confidentiality were taken. Patient acknowledged consent and understanding of pr ivacy and security of the Telemedicine visit. The patient agreed to participate. SUBJECTIVE: Suraj Prajapati is a 32 year old male here for No chief complaint on file. . Here for f/u. Needs FMLA form patient has a history of polysubstance abuse is treated with methadone at the [facility]. He had an overdose while at the clinic on the end of May. He was treated with Narcan and then entered [facility] from May 25. He was placed in the [facility] instead of detox or and found the situation not good, so left AMA on 11/21/2022. He has been re-enrolled with [facility] methadone. 200 mg daily. States is doing okay. Feels ready to return to work on the in 2 days. 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 Declines new labs, PrEP etc. Reviewed prior labs. Physical: There were no vitals taken for this visit. General-No apparent Distress Neuro-alert & oriented x3 (F19.10) Polysubstance abuse (HCC) (primary encounter diagnosis) Plan: support provided. Declined new labs. Enrolled in [employer] FMLA completed, return to work 06/14/23. (This note was completed using the dictation program Fluency Direct. As such, there may be misspellings, word substitutions, or other variations that should not change the essence of the clinical content of this encounter note.If there is need for further clarification, please direct questions to the provider listed above.) Sabino Whitten MD documented in this encounter Plan of Treatment Health Maintenance Due Date Last Done Comments Hepatitis B (1 of 3 - 3-dose series) 1990 COVID-19 Vaccine (#1) 05/13/1991 Pneumococcal Vaccine: Pediat rics (0 to 5 Years) and At-Risk Patients (6 to 64 Years) (1 - PCV) 1996 Depression Screening 10/03/2017 10/03/2016 Influenza Vaccine (FLU shot) (#1) 2023 DTaP,Tdap,and Td Vaccines (2 - Td or Tdap) 01/26/2031 01/26/2021 GARDASIL-HPV IMMUNIZATION SERIES Aged Out No longer eligible based on patient's age to complete this topic MENINGOCOCCAL (MENACTRA/MENVEO) Aged Out No longer eligible based on patient's age to complete this topic documented as of this encounter Medical Devices Not on filedocumented as of this encounter Visit Diagnoses Diagnosis Polysubstance abuse (HCC)- Primary Other, mixed, or unspecified nondependent drug abuse, unspecified documented in this encounter Care Teams Freight Forwarder Relationship Specialty Start Date End Date Nir Lucio MD [address] [place] [id number] PCP - General Family Medicine 09/29/21 documented as of this encounter
[2023-07-02 23:49] LABS: Sodium 127 mmol/L (136-145)
[2023-07-03 00:08] LABS: Ferritin 350.9 ng/ml (8-388)
[2023-07-03 00:10] LABS: Iron < 10 mcg/dl (35-175); Transferrin 139 mg/dl (200-360)
[2023-07-03 00:14] LABS: Folate (Folic Acid),Ser orPlas 6.38 ng/ml (>5.38)
[2023-07-03] MEDS: DOXYCYCLINE HYCLATE 100 MG CAP PO SCH ×2 (00:20→09:52)
[2023-07-03] MEDS: ACETAMINOPHEN W/CODEINE #3 1 TAB PO ONE (02:42)
[2023-07-03] MEDS: oxyCODONE HCL IR 5 MG TAB (IMMEDIATE RELEASE) PO STA (02:48)
[2023-07-03 04:19] LABS: Calcium 7.8 mg/dl (8.6-10.3); Magnesium 1.8 mg/dl (1.7-2.4); Potassium 3.6 mmol/L (3.5-5.1)
[2023-07-03 04:25] LABS: BUN Creatinine Ratio 19.4 (10-20); Creatinine Clr Calc Pharmacy 161.7 ml/min; Est GFR (African American) 143.1 ml/min; Est GFR (Non-African American) 123.4 ml/min
[2023-07-03] MEDS: CEFEPIME 2,000 MG in SYRINGE 0 ML IV SCH (04:45)
[2023-07-03] MEDS ORDERED: ACETAMINOPHEN 1,000 MG/100 ML VIAL IV PRN (05:14)
--- NOTE | 2023-07-03 05:15 | Communication Note ---
Date of Service: July 03, 2023 Patient painter mirror (Dr. Miles, contact #[phone]) contacted over the phone to discuss patient's Methadone regimen as per patient r equest. Dr. Miles recommends decreased dose from patient's usual 200 mg daily dose due to missing a few days of treatment. Specialist recommends Methadone 175 mg p.o. daily until discharge. (Split daily dosing of 87.5 mg p.o. twice daily also an option if patient pain not controlled with usual daily dosing as per provider.)
[2023-07-03] MEDS: ACETAMINOPHEN 1,000 MG/100 ML VIAL IV STA (05:47)
[2023-07-03] MEDS ORDERED: metroNIDAZOLE 500 MG/100 ML BAG IV SCH (06:00)
[2023-07-03] MEDS ORDERED: POLYETHYLENE (MIRALAX) 17 GM PACK PO PRN (06:19)
[2023-07-03] MEDS: METHADONE ORAL SOLN 2 MG/ML PO STA (06:49)
[2023-07-03] MEDS: metroNIDAZOLE 500 MG/100 ML BAG IV SCH (06:52)
[2023-07-03 07:21] LABS: Hematocrit (blood only) 33.5 % (42.0-52.0); Hemoglobin 11.4 g/dl (14.0-18.0); Mean Corpuscular Volume 82.3 fL (80.0-100.0); Mean Platelet Volume 10.1 fL (9.4-12.4); Platelet Count 239 K/uL (130-400); RDW Standard Deviation 39.1 fL (36.4-46.3); Red Blood Count 4.07 M/uL (4.70-6.10); White Blood Count 7.07 K/ul (4.8-10.8)
[2023-07-03 07:42] LABS: Basophils # (auto) 0.02 K/uL (0.00-0.20); Basophils % (auto) 0.3 %; Eosinophils # (auto) 0.01 K/uL (0.00-0.50); Eosinophils % (auto) 0.1 %; Immature Granulocytes # (auto) 0.11 K/uL (0.01-0.20); Immature Granulocytes % (auto) 1.6 %; Lymphocytes # (auto) 0.19 K/uL (1.20-3.40); Lymphocytes % (auto) 2.7 %; Monocytes # (auto) 0.33 K/uL (0.11-0.59); Monocytes % (auto) 4.7 %; Neutrophils # (auto) 6.41 K/uL (1.40-6.50); Neutrophils % (auto) 90.6 %; Toxic Vacuolation 3+
[2023-07-03] MEDS ORDERED: LACTULOSE SYRUP 30 GM/45 ML UDP PO ONE (08:00)
--- NOTE | 2023-07-03 08:15 | Hospitalist Progress Note ---
Date of Service July 03, 2023 Assessment & Plan (1) Sepsis: Plan Pt is a 32yoM with PMHx significant for chronic pain on methadone, HCV status post Mavyret Rx, GERD, mood disorder, chronic anemia (baseline hemoglobin 11- 12), ongoing tobacco abuse admitted with sepsis in the setting of pneumonia and cellulitis. Severe Sepsis Pneumonia, CAP vs. Aspiration WBC elevated >27K on admission, febrile, tachycardic with noted infectious source in lungs and lower extremities Hypotensive meets sepsis criteria Lactate was normal, procalcitonin elevated at 2.51 Chest XR with concerning opacity in lingula, chest CTA confirming LLL and lingula pneumonia, no PE. Also noted mediastinal lymphadenopathy possibly reactive, trace pleural effusions. Sputum Cx pending Blood Cx x 2 pending Continue with Flagyl, Cefepime and Doxycycline ordered LLE Cellulitis Pt with bilateral lower extremity cellulitis Admits to injecting IV drugs into his lower extremities CT LLE noting possible cellulitis changes Consider MRI to definitely rule out osteomyelitis RLE Venous doppler with no signs of DVT Continue with Cefepime and Doxycycline as noted above Iron Deficiency Anemia Pt with noted chronic anemia baseline hemoglobin 11-12, currently at baseline Noted microcytic Iron level <10, b12 appears oversupplemented, folate wnl IV Venofer ordered for iron supplementation with AM recheck Melena Reported in the ED Pt currently at baseline hgb On IV ppi GI was consulted on admission Recommending outpt followup Hyponatremia Pt with noted sodium of 126 on admission Received multiple fluid boluses in the ED Sodium slowly increasing, currently 128 Urine sodium <10, urine osm low at 272 Started on NSS x2 bags once more (trace pleural effusions noted on CTA chest) BMP q4h for continued monitoring Consider Nephrology consult Hypomagnesemia Noted on admission Currently wnl Replete as needed UTI UA was suggestive of infection Urine Cx pending On Cefepime as noted above Follow urine Cx IV Drug Use Pt admits to injecting into his lower extremities Notes recent fentanyl overdose On methadone chronically, follows with a methadone clinic. Recent d/c due to drug use. On bowel reigmen with senna, pr miralax Toxicology screen this admission positive for opiates, methadone, amphetamines, MDMA. Per admitting doc, pt's outpt methadone provider recommending daily 175 mg p.o. daily until discharge. (Split daily dosing of 87.5 mg p.o. twice daily also an option if patient pain not controlled with usual daily dosing as per provider) Pt currently declining spilt dosing. Echo with no evidence of vegetations suggestive of endocarditis at this time. Per CM, pt would like dual facility treatment/rehab on discharge (CM would like heads up on when stable for discharge to start the search/referral process) Chest Pain Pt presented with chest pain as well. hs-trop was wnl, EKG noted sinus tachycardia CT chest as noted above with pneumonia but no PE Echo with EF 60-65%, no valvular abnormalities and with no evidence of vegetations suggestive of endocarditis at this time Headache Pt with severe headache on admission Head CT with no acute abnormalities MRI was ordered and pending Pt DECLINED further evaluation with brain MRI stating that his headache has since gotten better and was likely related to his pain Melena Reported in the ED GI was consulted on admission Recommending outpt followup Splenomegaly Noted incidentally on CT imaging HCV status post Mavyret Rx INR slightly elevated at 1.2 Stable otherwise mood disorder not on maintenance medications patient denies suicidality Diet: regular DVT prophylaxis: SCDs Re possible GI bleed Full code Dispo: Pt would like dual facility treatment/rehab on discharge (CM would like heads up on when stable for discharge to start the search/referral process) Admission and Anticipated Discharge Date Admission Date: July 02, 2023 Subjective Pt was seen while still down in the ED. Pt declining brain MRI. States that his pain is better, just now more down in his lower extremities. Declining BID dosing of the methadone. Review of Systems Review of Systems: All systems reviewed & are unremarkable except as noted in Subjective Physical Exam Physical Exam: General: sleepy. No acute distress Skin: erythematous lower extremities with bruising and healing lesions Psych: Appropriate mood and affect Neuro: difficulty with movements in the bed due to pain HEENT: NC/AT Chest: Nontender to palpation. CV: RRR, No murmurs appreciated Resp: Breath sounds clear bilaterally, no increased effort of breathing. Abdomen: Soft Extremities: erythematous lower extremities with bruising and healing lesions noted Results & Data Results & Data Vital Signs (Past 12 Hours) Vital Signs Pulse Pulse Resp BP Pulse Ox Pulse Ox O2 Del Method 07/03/23 07:34 100 H 07/03/23 06:51 100 H 16 91/60 L 100 Room Air 07/03/23 00:21 98 07/03/23 00:21 99 H 19 115/86 96 Room Air 07/02/23 21:26 100 H O2 Del Method 07/03/23 07:34 07/03/23 06:51 07/03/23 00:21 Room Air 07/03/23 00:21 07/02/23 21:26 Diagnostic Findings Chest X-Ray 07/02/23 15:06 SINGLE VIEW CHEST CLINICAL HISTORY: Sepsis. FINDINGS: A PA chest radiograph is compared to study dated 05/15/2023. The cardiomediastinal silhouette is unremarkable. Question mild patchy airspace opacities in the lingula. No pleural effusion or pneumothorax is seen. The bony thorax is grossly intact. IMPRESSION: Question mild airspace opacities in the lingula. Correlate clinically for evidence of a mild pneumonitis. Radiographic follow-up to resolution is recommended. ACT 112: Negative or not required by law. Electronically signed by: Sen Reis M.D. 07/02/2023 3:[address] 07/02/23 17:00 CT SCAN OF THE BRAIN WITHOUT IV CONTRAST CLINICAL HISTORY: Headache. Fever. IV drug use. COMPARISON STUDY: CT of the brain dated 05/15/2023. TECHNIQUE: Unenhanced axial CT scan of the brain is performed from the vertex to the skull base. A dose lowering technique was utilized adhering to the principles of ALARA. The patient was scanned twice due to motion artifact. FINDINGS: Brain parenchyma: The brain parenchyma is normal in appearance. There is no hemorrhage, mass effect, or evidence of acute territorial ischemia by CT criteria. Acosta-white matter differentiation is preserved. No extra-axial fluid collection is seen. Ventricles, sulci, cisterns: Normal in configuration. Intracranial vasculature: The visualized intracranial vasculature at the skull base is normal in appearance. Calvarium: Unremarkable. Sinuses and mastoids: The visualized paranasal sinuses are clear. The mastoid air cells are well pneumatized. Orbits: The bony orbits are grossly intact. IMPRESSION: There is no hemorrhage, mass effect, or evidence of acute territorial ischemia by CT criteria. ACT 112: Negative or not required by law. Electronically signed by: Sen Reis M.D. 07/02/2023 6:45 PM Chest CTA 07/02/23 17:16 CT ANGIOGRAM OF THE CHEST CLINICAL HISTORY: Fever. Edema. History of intravenous drug use. COMPARISON STUDY: Chest x-ray dated 07/02/2023 TECHNIQUE: Following the IV administration of 109 cc of Optiray 320, CT angiogram of the chest was performed from the upper abdomen to the thoracic inlet utilizing the pulmonary embolus protocol. Images are reviewed in the axial, sagittal, and coronal planes. 3-D MIPS images are created and assessed. IV contrast was administered without complication. A dose lowering technique was utilized adhering to the principles of ALARA. The examination is degraded by suboptimal contrast opacification of the pulmonary arteries. There is also motion artifact. CT DOSE: 1879.44 mGy.cm FINDINGS: Thyroid: Imaged portions of the thyroid gland are normal in size and attenuation. Thoracic aorta: The thoracic aorta is normal in caliber and demonstrates standard 3-vessel arch anatomy. No dissection is seen. Pulmonary vasculature: The pulmonary trunk is normal in caliber. There are no filling defects identified in main, lobar, or proximal segmental pulmonary branches to suggest pulmonary embolus. Evaluation of the peripheral branches is degraded by motion artifact and lack of contrast opacification. Heart: The heart is mildly enlarged and without pericardial effusion. Lungs and pleural spaces: Evaluation of the lung parenchyma is degraded by motion artifact. There is patchy airspace consolidation in the left lower lobe and lingula typical for pneumonia. There is trace left pleural effusion. The right lung appears clear. The trachea and central airways are patent. Mediastinum: There are numerous prominent mediastinal lymph nodes which measure up to 9 mm in short axis. Ailyn: Clear. Axillae: There is no axillary lymphadenopathy. Upper abdomen: The spleen is mildly enlarged measuring 13.5 cm in length. Partially visualized upper abdominal viscera is otherwise grossly unremarkable. Skeletal structures: No lytic or blastic bony lesions are seen. Soft tissues: Gynecomastia is noted. IMPRESSION: 1. There is no evidence of central pulmonary embolus in the main, lobar, or proximal segmental pulmonary arteries. The distal segmental and subsegmental branches are not well assessed. 2. Airspace consolidation in the left lower lobe and lingula is typical for pneumonia. Clinical correlation will be required and radiographic follow-up to resolution is recommended. 3. Trace of pleural effusion. 4. There are numerous prominent mediastinal lymph nodes which are nonspecific and likely reactive. 5. Mild splenomegaly. 6. Additional findings as above. ACT 112: Negative or not required by law. Electronically signed by: Sen Reis M.D. 07/02/2023 7:02 PM Venous Doppler Study 07/02/23 20:19 Exam(s): US VENOUS RIGHT LOWER EXTREMITY EXAM: US Duplex Right Lower Extremity Veins CLINICAL HISTORY: Reason for exam: leg swelling. TECHNIQUE: Real-time duplex ultrasound scan of the right lower extremity veins integrating B-mode two-dimensional vascular structure, Doppler spectral analysis, color flow Doppler imaging and compression. COMPARISON: 12/07/2022. FINDINGS: Deep veins: Unremarkable. No DVT in the visualized common femoral, femoral, proximal deep femoral or popliteal veins. The veins demonstrate normal color flow, are normally compressible, with normal phasic flow and/or augmentation response. Superficial veins: Unremarkable. No thrombus in the visualized great saphenous vein. Soft tissues: No acute findings. No popliteal cyst. Lymph nodes: The bone enlarged lymph nodes, largest lymph node in the right groin measuring 4.0 x 1.6 x 1.8 cm consistent with lymphadenopathy, etiology indeterminate. Other findings: The patient refused examination of the left lower extremity. IMPRESSION: No ultrasonographic evidence of deep venous thrombosis involving the right lower extremity. Electronically signed by: Katie Sequeira MD 07/02/23 23:[address] 07/03/23 07:00 CT SCAN OF THE LEFT TIBIA AND FIBULA WITH IV CONTRAST CLINICAL HISTORY: Lower extremity edema. Sepsis. COMPARISON STUDY: No priors. TECHNIQUE: CT scan of the left tibia and fibula is performed from the distal femur to the foot following the IV administration of 90 cc of Optiray 320. Images are reviewed in the axial, sagittal, and coronal planes. IV contrast was administered without complication. A dose lowering technique was utilized adhering to the principles of ALARA. CT DOSE: 1302.04 mGy.cm FINDINGS: The skeletal structures are well-mineralized. There is no evidence of tibial or fibular fracture. There is no bony erosion or periostitis. The knee and ankle joints are grossly maintained. There is no evidence of osteochondral defect in the talar dome. No ankle joint effusion is identified. Diffuse subcutaneous soft tissue edema and fluid is seen throughout the left lower extremity. No organized fluid collection is seen to suggest abscess. The regional vessels appear patent. The regional musculature is normal in appearance. The Achilles tendon is intact as visualized. There is a small popliteal cyst. IMPRESSION: 1. No acute bony abnormality is identified. 2. Diffuse subcutaneous soft tissue edema and fluid is seen throughout the left lower extremity. Correlate clinically for evidence of cellulitis. 3. No organized fluid collection is seen to suggest abscess. 4. Small popliteal cyst. ACT 112: Negative or not required by law. Dictated: 07/03/2023 10:50 AM Transcribed: 07/03/2023 11:38 AM Clarke [id number] JAYNA_Camron [id number] Electronically signed by: Sen Reis M.D. 07/03/2023 12:40 PM
[2023-07-03] MEDS: OPTIRAY 320 500ml IV ONE (08:46)
[2023-07-03 09:17] LABS: Toxic Vacuolation 1+
--- NOTE | 2023-07-03 09:24 | Gastrointestinal Consultation ---
Date of Consultation July 03, 2023 Assessment & Plan (1) Sepsis: 32 year old male with history of chronic pain on methadone, HCV status post Mavyret Rx, GERD, mood disorder, chronic anemia (baseline hemoglobin 11-12), ongoing tobacco abuse, recent fentanyl overdose admitted through the ED with cellulitis second to IVDU and CAP vs aspiration PNA related to fentanyl overdose - GI asked to evaluate for ?UGI bleed, rectal exam in ED ?melanotic stools. He denies any black or bloody stools and endorses chronic constipation. Given there is no evidence of active GI bleeding, will defer endoscopic evaluation to outpatient setting once he is medically optimized. IV PPI BID x 48 hours Then PO PPI twice daily GERD dietary and lifestyle changes discussed Miralax 1-2 capfuls daily Plan for OP EGD/Colonoscopy Trend H&H Monitor stools and document GI output Thank you for allowing us to participate in the care of this patient. Please call with any acute changes, questions or concerns. Please see addendum below with additional recommendation from my supervising physician. Supervising Physician Co-Signing Physician Notes Attg add: Pt with normocytic anemia in setting of sepsis and no evidence of overt GI blood loss. Can follow hgb while inpt, consider endoscopic w/u for anemia as outpt once sepsis resolves. No further recs, please reconsult as needed. History of Present Illness Reason for Consultation: ?UGI bleed Requesting Physician: Isac Attending Physician: Latricia Chau MD History of Present Illness 32 year old male with history of chronic pain on methadone, HCV status post Mavyret Rx, GERD, mood disorder, chronic anemia (baseline hemoglobin 11-12), ongoing tobacco abuse, recent fentanyl overdose admitted through the ED with cellulitis second to IVDU and CAP vs aspiration PNA related to fentanyl overdose - GI asked to evaluate for ?UGI bleed. Pt was seen and evaluated, chart reviewed. Notes from a GI standpoint his symptoms are unchanged. He endorses chronic constipation, frequent digital disimpactions. Denies abd pain. No report of black or bloody stools per patient. No nausea, vomiting. No previous history of black or bloody emesis. Chronic GERD. Not well controlled. He has concerns about the health of his body, specifically his colon, as he previous has used street drugs rectally. HGB 10.8 --> 11.4 No ABD imaging EGD 2012: Normal esophagus. - Z-line regular,. This was biopsied. - Gastritis. This was biopsied. - Normal examined duodenum. Biopsy was performed. Allergies Allergy/AdvReac Type Severity Reaction Status Date / Time chlorpromazine Allergy Severe facial Verified 07/02/23 16:43 [From Thorazine] swelling and agitation amoxicillin Allergy Intermediate leg and Verified 12/11/22 19:28 feet swelling Home Medications Medication Instructions Recorded Confirmed Type methadone 200 mg PO DAILY 07/02/23 07/02/23 History Patient History Medical History Methamphetamine abuse Surgical History No pertinent past surgical history Social History Smoking Status: Current every day smoker Tobacco Type: Cigarettes Do You Dip or Chew Tobacco: No; Tobacco Cessation Education Requested by Patient: No Hx Alcohol Use: Yes Hx Substance Use: Yes Substance Use Type Other:: fentanyl Preferred Language: Liberian Communication Ability: Effective Carbonation Equipment Tender Required: No Beliefs That Will Affect Care: None Current Living Situation: Homeless Feels Safe at Home: Yes Safety Concerns: Feels Safe At This Time Assistive Devices: None Review of Systems Review of Systems: All systems reviewed & are unremarkable except as noted in HPI & below Physical Exam Constitutional: WD/WN, vitals as above Respiratory: normal respiratory effort, lungs clear to auscultation Cardiovascular: Rate/Rhythm: regular rate Gastrointestinal (Abdomen): normal bowel sounds, soft, nontender, no hepatosplenomegaly Skin: no rashes, warm and dry Results & Data Vital Signs (Past 12 Hours) Vital Signs Pulse Pulse Resp BP Pulse Ox Pulse Ox O2 Del Method 07/03/23 07:34 100 H 07/03/23 06:51 100 H 16 91/60 L 100 Room Air 07/03/23 00:21 98 07/03/23 00:21 99 H 19 115/86 96 Room Air 07/02/23 21:26 100 H O2 Del Method 07/03/23 07:34 07/03/23 06:51 07/03/23 00:21 Room Air 07/03/23 00:21 07/02/23 21:26
[2023-07-03] MEDS: PANTOprazole 40 MG in SYRINGE 0 ML IV SCH (09:52)
[2023-07-03] MEDS: DOCUSATE SODIUM/SENNA 50/8.6MG TAB PO SCH (09:52)
[2023-07-03] MEDS: LACTULOSE SYRUP 30 GM/45 ML UDP PO STA (09:52)
--- NOTE | 2023-07-03 12:08 | Electrocardiogram Report ---
Test Reason : Blood Pressure : / mmHG Vent. Rate : 124 BPM Atrial Rate : 124 BPM P-R Int : 132 ms QRS Dur : 086 ms QT Int : 294 ms P-R-T Axes : 059 074 037 degrees QTc Int : 422 ms Sinus tachycardia Otherwise normal ECG When compared with ECG of 15-MAY-2023 10:04, No significant change was found Confirmed by Reece Cazares ([id number]) on 07/03/2023 12:07:52 PM Referred By: REFERRED SELF Confirmed By:Reece Cazares
--- NOTE | 2023-07-03 12:10 | Electrocardiogram Report ---
Test Reason : Blood Pressure : / mmHG Vent. Rate : 102 BPM Atrial Rate : 102 BPM P-R Int : 140 ms QRS Dur : 090 ms QT Int : 342 ms P-R-T Axes : 052 076 058 degrees QTc Int : 445 ms Sinus tachycardia Otherwise normal ECG When compared with ECG of 02-JUL-2023 16:04, (unconfirmed) No significant change was found Confirmed by Reece Cazares ([id number]) on 07/03/2023 12:09:54 PM Referred By: REFERRED SELF Confirmed By:Reece Cazares
[2023-07-03] MEDS: ACETAMINOPHEN 325 MG TAB PO PRN (12:14)
--- NOTE | 2023-07-03 12:41 | CT Scan Report ---
CT SCAN OF THE LEFT TIBIA AND FIBULA WITH IV CONTRAST CLINICAL HISTORY: Lower extremity edema. Sepsis. COMPARISON STUDY: No priors. TECHNIQUE: CT scan of the left tibia and fibula is performed from the distal femur to the foot follow ing the IV administration of 90 cc of Optiray 320. Images are reviewed in the axial, sagittal, and co lashay planes. IV contrast was administered without complication. A dose lowering technique was utiliz ed adhering to the principles of ALARA. CT DOSE: 1302.04 mGy.cm FINDINGS: The skeletal structures are well-mineralized. There is no evidence of tibial or fibular fra cture. There is no bony erosion or periostitis. The knee and ankle joints are grossly maintained. The re is no evidence of osteochondral defect in the talar dome. No ankle joint effusion is identified. D iffuse subcutaneous soft tissue edema and fluid is seen throughout the left lower extremity. No organ ized fluid collection is seen to suggest abscess. The regional vessels appear patent. The regional mu sculature is normal in appearance. The Achilles tendon is intact as visualized. There is a small popl iteal cyst. IMPRESSION: 1. No acute bony abnormality is identified. 2. Diffuse subcutaneous soft tissue edema and fluid is seen throughout the left lower extremity. Mc elate clinically for evidence of cellulitis. 3. No organized fluid collection is seen to suggest abscess. 4. Small popliteal cyst. ACT 112: Negative or not required by law. Dictated: 07/03/2023 10:50 AM Transcribed: 07/03/2023 11:38 AM Clarke [id number] JAYNA_Camron [id number] Electronically signed by: Sen Reis M.D. 07/03/2023 12:40 PM
[2023-07-03] MEDS: SODIUM CHLORIDE 0.9% 1,000 ML IV SCH (17:17)
[2023-07-03] MEDS: IRON SUCROSE 200 MG in 0.9 % SODIUM CHLORIDE 100 ML IV ONE (17:19)
[2023-07-03 17:32] LABS: Calcium 8.6 mg/dl (8.6-10.3); Potassium 3.7 mmol/L (3.5-5.1)
[2023-07-03 17:37] LABS: BUN Creatinine Ratio 18.6 (10-20); Creatinine Clr Calc Pharmacy 166.3 ml/min; Est GFR (African American) 144.7 ml/min; Est GFR (Non-African American) 124.9 ml/min
[2023-07-03] MEDS: oxyCODONE HCL IR 5 MG TAB (IMMEDIATE RELEASE) PO PRN (19:56)
[2023-07-04] MEDS ORDERED: METHADONE HCL 5 MG TAB PO STA (05:50)
[2023-07-04] MEDS: METHADONE ORAL SOLN 2 MG/ML PO SCH (05:50)
[2023-07-04] MEDS: PATIENT'S OWN CONTROLLED MED 1 PO SCH (06:10)
[2023-07-04 06:30] LABS: Albumin Level 2.8 gm/dl (3.4-5.0); Bilirubin,Total 0.7 mg/dl (0.2-1.0); Calcium 7.9 mg/dl (8.6-10.3); Magnesium 1.6 mg/dl (1.7-2.4); Potassium 3.8 mmol/L (3.5-5.1)
[2023-07-04 06:37] LABS: BUN Creatinine Ratio 12.3 (10-20); Creatinine Clr Calc Pharmacy 179.1 ml/min; Est GFR (African American) 149.2 ml/min; Est GFR (Non-African American) 128.7 ml/min
[2023-07-04 06:41] LABS: Albumin Globulin Ratio 1.3 (0.9-2); Globulin 2.2 gm/dl (2.5-4.0); Phosphorus 1.4 mg/dl (2.5-4.9)
[2023-07-04 06:50] LABS: Hemoglobin 10.5 g/dl (14.0-18.0); Mean Corpuscular Hemoglobin 28.2 pg (25.0-34.0); Mean Corpuscular Volume 80.6 fL (80.0-100.0); Platelet Count 263 K/uL (130-400); RDW Coefficient of Variation 13.3 % (11.5-14.5); RDW Standard Deviation 38.7 fL (36.4-46.3); Red Blood Count 3.72 M/uL (4.70-6.10); White Blood Count 24.76 K/ul (4.8-10.8)
[2023-07-04 06:51] LABS: Basophils # (auto) 0.07 K/uL (0.00-0.20); Basophils % (auto) 0.3 %; Eosinophils # (auto) 0.35 K/uL (0.00-0.50); Eosinophils % (auto) 1.4 %; Immature Granulocytes # (auto) 0.32 K/uL (0.01-0.20); Immature Granulocytes % (auto) 1.3 %; Lymphocytes # (auto) 1.02 K/uL (1.20-3.40); Lymphocytes % (auto) 4.1 %; Monocytes # (auto) 1.28 K/uL (0.11-0.59); Monocytes % (auto) 5.2 %; Neutrophils # (auto) 21.72 K/uL (1.40-6.50); Neutrophils % (auto) 87.7 %; Polychromasia 1+
[2023-07-04] MEDS ORDERED: VANCOMYCIN CONSULT ACTIVE PRN (07:06)
[2023-07-04] MEDS ORDERED: VANCOMYCIN HCL 1 MG in SODIUM CHLORIDE 0.9% 250 ML IV STA (07:06)
--- NOTE | 2023-07-04 07:09 | Communication Note ---
Date of Service: July 04, 2023 Made aware by RN of WBC of 30 this a.m. Recurrent fever overnight. Repeat cultures Vancomycin in place of doxycycline for now Continue cefepime and Flagyl
[2023-07-04] MEDS ORDERED: POTASSIUM PHOS 3 MMOL/1 ML INFUSION IV STA (08:08)
--- NOTE | 2023-07-04 08:28 | Hospitalist Progress Note ---
Date of Service July 04, 2023 Assessment & Plan (1) Sepsis: Plan Pt is a 32yoM with PMHx significant for chronic pain on methadone, HCV status post Mavyret Rx, GERD, mood disorder, chronic anemia (baseline hemoglobin 11- 12), ongoing tobacco abuse admitted with sepsis in the setting of pneumonia and cellulitis. Severe Sepsis Pneumonia, CAP vs. Aspiration WBC elevated >27K on admission, febrile, tachycardic with noted infectious source in lungs and lower extremities Hypotensive meets sepsis criteria Lactate was normal, procalcitonin elevated at 2.51 Chest XR with concerning opacity in lingula, chest CTA confirming LLL and lingula pneumonia, no PE. Also noted mediastinal lymphadenopathy possibly reactive, trace pleural effusions. Sputum Cx pending Blood Cx x 2 pending Continue with Flagyl, Cefepime and Doxycycline ordered -> because pt febrile - doxy changed to vanco by park activities coordinator - cont. added guaifenesin, flutter valve. pt reports cough improved. LLE Cellulitis Pt with bilateral lower extremity cellulitis Admits to injecting IV drugs into his lower extremities CT LLE noting cellulitis changes Consider MRI to definitely rule out osteomyelitis RLE Venous doppler with no signs of DVT Continue with Cefepime and vancomycin as noted above Obtain skin/wound cultx Iron Deficiency Anemia Pt with noted chronic anemia baseline hemoglobin 11-12, currently at baseline Noted microcytic Iron level <10, b12 appears oversupplemented, folate wnl IV Venofer ordered previously for iron supplementation Melena Reported in the ED Pt currently at baseline hgb On IV ppi GI was consulted on admission Recommending outpt followup Hyponatremia Pt with noted sodium of 126 on admission Received multiple fluid boluses in the ED Sodium slowly increasing, currently 129 Urine sodium <10, urine osm low at 272 Started on NSS x2 bags once more (trace pleural effusions noted on CTA chest) close BMP for continued monitoring - ordered BMP for 3 pm recheck Consider Nephrology consult Hypomagnesemia Replete and monitor UTI - ruled out UA was suggestive of infection Urine Cx negative IV Drug Use Pt admits to injecting into his lower extremities Notes recent fentanyl overdose On methadone chronically, follows with a methadone clinic. Recent d/c due to drug use. On bowel reigmen with senna, pr miralax Toxicology screen this admission positive for opiates, methadone, amphetamines, MDMA. Per admitting doc, pt's outpt methadone provider recommending daily 175 mg p.o. daily until discharge. (Split daily dosing of 87.5 mg p.o. twice daily also an option if patient pain not controlled with usual daily dosing as per provider) Pt currently declining spilt dosing. Echo with no evidence of vegetations suggestive of endocarditis at this time. Per CM, pt would like dual facility treatment/rehab on discharge (CM would like heads up on when stable for discharge to start the search/referral process) Chest Pain Pt presented with chest pain as well. hs-trop was wnl, EKG noted sinus tachycardia CT chest as noted above with pneumonia but no PE Echo with EF 60-65%, no valvular abnormalities and with no evidence of vegetations suggestive of endocarditis at this time Headache Pt with severe headache on admission Head CT with no acute abnormalities MRI was ordered but Pt DECLINED further evaluation with brain MRI stating that his headache has since gotten better and was likely related to his pain Now again with AL and wants to proceed w/ MRI Melena Reported in the ED GI was consulted on admission Recommending outpt followup Splenomegaly Noted incidentally on CT imaging HCV status post Mavyret Rx INR slightly elevated at 1.2 Stable otherwise mood disorder not on maintenance medications patient denies suicidality Diet: regular DVT prophylaxis: SCDs Re possible GI bleed Full code Dispo: Pt would like dual facility treatment/rehab on discharge (CM would like heads up on when stable for discharge to start the search/referral process) Admission and Anticipated Discharge Date Admission Date: July 02, 2023 Subjective Pt seen in follow up of sepsis, LLE cellulitis, pna, recent hx of fentanyl od, on methadone Febrile this AM, elevated WBC - per park activities coordinator - robert switched to vancomycin - cont. cefepime and flagyl Pt laying in bed , reports headache. previously declined brain MRI that was ordered on admission now he wants to proceed with the study. also reports feeling unwell overall and having LLE pain. LLE erythema, edema Review of Systems Review of Systems: All systems reviewed & are unremarkable except as noted in Subjective Physical Exam Physical Exam: General: WD/WN young M in NAD however w/ AL and LLE pain HEENT: NC/AT Chest: Nontender to palpation. CV: RRR, No murmurs appreciated Resp: Breath sounds clear bilaterally, no increased effort of breathing. Abdomen: Soft Neuro: awake alert, answers appropriately, no facial asymmetry, moves extremities Extremities: erythematous lower extremities LLE > RLE with healing lesions noted Skin: erythematous lower extremities with healing lesions Results & Data Results & Data Vital Signs (Past 12 Hours) Vital Signs Temp Pulse Resp BP Pulse Ox O2 Del Method 07/04/23 03:00 38.5 C H 97 H 18 105/54 L 97 Room Air 07/03/23 22:00 38 C H 98 H 18 106/62 100 Room Air Laboratory Results 07/04/23 07/03/23 07/02/23 Range/Units 05:54 16:59 16:54 WBC 24.76 H D (4.8-10.8) K/ul RBC 3.72 L (4.70-6.10) M/uL Hgb 10.5 L (14.0-18.0) g/dl Hct 30.0 L (42.0-52.0) % MCV 80.6 (80.0-100.0) fL MCH 28.2 (25.0-34.0) pg MCHC 35.0 (32.0-36.0) g/dL RDW Std Deviation 38.7 (36.4-46.3) fL RDW Coeff of Randa 13.3 (11.5-14.5) % Plt Count 263 (130-400) K/uL MPV 10.0 (9.4-12.4) fL Immature Gran % (Auto) 1.3 % Neut % (Auto) 87.7 % Lymph % (Auto) 4.1 % [place] % (Auto) 5.2 % Eos % (Auto) 1.4 % Baso % (Auto) 0.3 % Neut # (Auto) 21.72 H (1.40-6.50) K/uL Lymph # (Auto) 1.02 L (1.20-3.40) K/uL [place] # (Auto) 1.28 H (0.11-0.59) K/uL Eos # (Auto) 0.35 (0.00-0.50) K/uL Baso # (Auto) 0.07 (0.00-0.20) K/uL Immature Gran # (Auto) 0.32 H (0.01-0.20) K/uL Toxic Vacuolation 1+ Polychromasia 1+ Sodium 129 L 132 L (136-145) mmol/L Potassium 3.8 3.7 (3.5-5.1) mmol/L Chloride 99 99 (98-107) mmol/L Carbon Dioxide 24 24 (21-32) mmol/L Anion Gap 6 9 (3-11) BUN 8 13 (6-23) mg/dl Creatinine 0.65 0.70 (0.6-1.4) mg/dl Est Cr Clr Drug Dosing 179.1 166.3 ml/min Est GFR ( Amer) 149.2 144.7 ml/min Est GFR (Non-Af Amer) 128.7 124.9 ml/min BUN/Creatinine Ratio 12.3 18.6 (10-20) Glucose 84 101 H (70-99(Fasting)) mg/dl Calcium 7.9 L 8.6 (8.6-10.3) mg/dl Phosphorus 1.4 L* (2.5-4.9) mg/dl Magnesium 1.6 L (1.7-2.4) mg/dl Iron 10 L (35-175) mcg/dl Total Bilirubin 0.7 (0.2-1.0) mg/dl AST 47 H (13-39) U/L ALT 51 (7-52) U/L Alkaline Phosphatase 135 H D (34-104) U/L Total Protein 5.0 L D (6.0-8.3) gm/dl Albumin 2.8 L (3.4-5.0) gm/dl Globulin 2.2 L (2.5-4.0) gm/dl Albumin/Globulin Ratio 1.3 (0.9-2) Medications Administered Current Inpatient Medications Acetaminophen (Acetaminophen 325 Mg Tab) 325 mg PO Q6H PRN PRN Reason: fever/pain Stop: 08/01/23 19:35 Last Admin: 07/04/23 01:56 Dose: 325 mg Metronidazole (Flagyl) 500 mg in 100 mls @ 100 mls/hr IV Q8H [facility]; Protocol Stop: 07/10/23 05:59 Last Infusion: 07/04/23 08:24 Dose: Infused Cefepime HCl 2,000 mg/ Syringe 20 mls @ 5 mls/min IV Q8H [facility]; Protocol Stop: 07/10/23 03:59 Last Admin: 07/04/23 03:15 Dose: 5 mls/min Pantoprazole Sodium 40 mg/ (Syringe) 10 mls @ 5 mls/min IV BID [facility] Stop: 08/02/23 08:59 Last Admin: 07/04/23 07:47 Dose: 5 mls/min Acetaminophen (Ofirmev) 1,000 mg in 100 mls @ 400 mls/hr IV Q8H PRN PRN Reason: pain/fever not relieved by ora Stop: 07/06/23 05:13 Sodium Chloride (Nss) 1,000 mls @ 100 mls/hr IV .Q10H [facility] Stop: 07/04/23 12:14 Last Admin: 07/04/23 01:56 Dose: 100 mls/hr Vancomycin HCl 2,000 mg/ (Sodium Chloride) 540 mls @ 200 mls/hr IV NOW ONE Stop: 07/04/23 09:56 Magnesium Sulfate/Dextrose (Magnesium Sulfate / D5w) 1 gm in 100 mls @ 50 mls/hr IV ONE ONE Stop: 07/04/23 10:07 Potassium Phosphate 40 mmol/ (Sodium Chloride) 1,013.3333 mls @ 145 mls/hr IV ONE ONE Stop: 07/04/23 15:29 Methadone HCl (Methadone Oral Soln 2 Mg/Ml) 175 mg PO DAILY [facility] Stop: 07/04/23 12:00 Last Admin: 07/04/23 05:50 Dose: Not Given Methadone HCl (Methadone Oral Soln 2 Mg/Ml) 175 mg PO DAILY [facility] Stop: 07/19/23 08:59 Miscellaneous Information (Vancomycin Consult Active) 1 each N/A UD PRN PRN Reason: Consult Stop: 08/03/23 07:05 Non-Formulary Medication (Patient's Own Controlled Med 1) 1 each PO QAM [facility] Stop: 07/18/23 05:59 Last Admin: 07/04/23 06:10 Dose: 175 mg Oxycodone HCl (Oxycodone Hcl Ir 5 Mg Tab (Immediate Release)) 5 mg PO Q6H PRN PRN Reason: Pain Stop: 07/17/23 02:11 Last Admin: 07/04/23 01:56 Dose: 5 mg Polyethylene Glycol (Polyethylene (Miralax) 17 Gm Pack) 17 gm PO DAILY PRN PRN Reason: Constipation Stop: 08/02/23 06:18 Senna/Docusate Sodium (Docusate Sodium/Senna 50/8.6mg Tab) 1 tab PO BID [facility] Stop: 08/02/23 08:59 Last Admin: 07/04/23 07:49 Dose: Not Given
[2023-07-04] MEDS: POTASSIUM PHOSPHATE 40 MMOL in SODIUM CHLORIDE 0.9% 1,000 ML IV ONE (09:33)
[2023-07-04] MEDS: MAGNESIUM SULFATE / D5W 1 GM/100 ML BAG IV ONE (09:34)
[2023-07-04] MEDS: POLYETHYLENE (MIRALAX) 17 GM PACK PO SCH (09:55)
[2023-07-04] MEDS: VANCOMYCIN HCL 2,000 MG in SODIUM CHLORIDE 0.9% 500 ML IV ONE (09:55)
[2023-07-04] MEDS: guaiFENesin 600 MG TABCR PO SCH (09:56)
[2023-07-04] MEDS: ADVANCED PROBIOTIC 1250 MG CAPSULE PO SCH (09:56)
--- NOTE | 2023-07-04 11:36 | Pharmacy Report ---
Pharmacy PK ABX Note - Date of Service July 04, 2023 - Assessment and Plan Assessment 32 year old M receiving cefepime/vancomycin for treatment of CAP vs aspiration pneumonia and cellulits . Pertinent microbiologic data includes: Positive MRSA Nasal Swab, blood culture growing 07/02 NGx24 hours, repeat blood culture 07/04/ pending, Urine culture NG, sputum gram stain w/ mod GPCs, rare GNBs, GNCs,GPBs, moderate duke noted (final culture and identification pending). Was ordered doxycycline on admission, but changed last night to vancomycin due to fevers and elevated WBC. He did receive a loading dose of vancomycin in the ED on 07/02, but that dose has likely almost completely cleared at this point as he has normal renal function, so he was reloaded. Day # 1 of Vancomycin therapy (Day #3 of antimicrobial therapy) Plan Vancomycin * Loading dose: 2000 mg IV x 1 * Maintenance dose: 1250 mg IV every 8 hours * Regimen is predicted to achieve target AUC/TIN of 400-600 mg/L.hr * Random level ordered for: 07/05/23 @1030 Pharmacy will continue to follow and will adjust dose/frequency as necessary. Thank you. Pharmacy has transitioned to AUC monitoring for vancomycin. AUC/TIN is the preferred PK/PD target and is associated with decreased risk of nephrotoxicity compared to traditional trough targets.
[2023-07-04] MEDS: MAGNESIUM OXIDE 400 MG TAB PO SCH (15:27)
[2023-07-04 15:42] LABS: Anion Gap 7 (3-11); Calcium 7.9 mg/dl (8.6-10.3); Carbon Dioxide 25 mmol/L (21-32); Chloride 98 mmol/L (98-107); Magnesium 1.8 mg/dl (1.7-2.4); Potassium 3.6 mmol/L (3.5-5.1); Sodium 130 mmol/L (136-145)
[2023-07-04 15:48] LABS: BUN Creatinine Ratio 10.9 (10-20); Blood Urea Nitrogen 7 mg/dl (6-23); Creatinine Clr Calc Pharmacy 181.9 ml/min; Est GFR (African American) > 150.0 ml/min; Est GFR (Non-African American) 129.6 ml/min; Glucose 95 mg/dl (70-99(Fasting)); Phosphorus 1.6 mg/dl (2.5-4.9)
[2023-07-04] MEDS: POTASSIUM CHLORIDE CRTAB 20 MEQ TABCR PO STA (16:54)
[2023-07-04] MEDS: SODIUM CHLORIDE 0.9% 1,000 ML IV SCH (16:55)
[2023-07-04] MEDS ORDERED: VANCOMYCIN HCL 1,000 MG in SODIUM CHLORIDE 0.9% 250 ML IV SCH (19:00)
[2023-07-04] MEDS: GADOBUTROL 65ML VIAL IV ONE (20:07)
[2023-07-04] MEDS: VANCOMYCIN HCL 1,250 MG in SODIUM CHLORIDE 0.9% 250 ML IV SCH (21:13)
[2023-07-04] MEDS: HYDROmorphone INJ 0.5 MG/0.5 ML SYR IV STA (21:14)
[2023-07-04] MEDS: HEPARIN SOD 5,000 UNIT/0.5 ML VIAL SQ SCH (21:18)
--- NOTE | 2023-07-04 21:21 | Magnetic Resonance Report ---
Exam(s): MRI HEAD W/WO Contrast IV Amt: 8.5cc gadavist EXAM: MR Head Without and With Intravenous Contrast CLINICAL HISTORY: Reason for exam: AL, IVDA. TECHNIQUE: Magnetic resonance images of the head/brain without and with intravenous contrast in multiple planes. CONTRAST: Patient received 8.5cc gadavist of IV contrast COMPARISON: Head CT 07/02/2023 FINDINGS: Brain: No abnormal enhancement. No mass. No hemorrhage. No acute infarct. Ventricles: Unremarkable. No ventriculomegaly. Bones/joints: Unremarkable. No acute fracture. Sinuses: Unremarkable as visualized. No acute sinusitis. Mastoid air cells: Unremarkable as visualized. No mastoid effusion. Orbits: Unremarkable as visualized. IMPRESSION: Normal head/brain MRI. Electronically signed by: Mario Alberto Pascual MD 07/04/23 21:20 PM
[2023-07-05] MEDS: METHADONE ORAL SOLN 2 MG/ML PO SCH (06:15)
[2023-07-05] MEDS: PATIENT'S OWN CONTROLLED MED 1 PO SCH (06:15)
[2023-07-05 06:31] LABS: Hematocrit (blood only) 28.4 % (42.0-52.0); Hemoglobin 9.6 g/dl (14.0-18.0); Mean Corpuscular Hgb Conc 33.8 g/dL (32.0-36.0); Mean Corpuscular Volume 82.8 fL (80.0-100.0); Mean Platelet Volume 9.7 fL (9.4-12.4); Platelet Count 268 K/uL (130-400); RDW Coefficient of Variation 13.6 % (11.5-14.5); RDW Standard Deviation 41.1 fL (36.4-46.3); Red Blood Count 3.43 M/uL (4.70-6.10); White Blood Count 26.42 K/ul (4.8-10.8)
[2023-07-05 06:45] LABS: Anion Gap 6 (3-11); BUN Creatinine Ratio 9.6 (10-20); Blood Urea Nitrogen 5 mg/dl (6-23); Calcium 7.8 mg/dl (8.6-10.3); Carbon Dioxide 27 mmol/L (21-32); Chloride 101 mmol/L (98-107); Creatinine Clr Calc Pharmacy 223.8 ml/min; Est GFR (African American) > 150.0 ml/min; Est GFR (Non-African American) 141.1 ml/min; Glucose 115 mg/dl (70-99(Fasting)); Potassium 2.9 mmol/L (3.5-5.1); Sodium 134 mmol/L (136-145)
[2023-07-05 06:47] LABS: Alanine Aminotransferase 38 U/L (7-52); Albumin Globulin Ratio 1.2 (0.9-2); Albumin Level 2.6 gm/dl (3.4-5.0); Alkaline Phosphatase 245 U/L (34-104); Aspartate Aminotransferase 26 U/L (13-39); Bilirubin,Total 0.6 mg/dl (0.2-1.0); Globulin 2.2 gm/dl (2.5-4.0); Magnesium 1.8 mg/dl (1.7-2.4); Phosphorus 1.4 mg/dl (2.5-4.9); Total Protein 4.8 gm/dl (6.0-8.3)
[2023-07-05 07:01] LABS: Basophils % (auto) 0.4 %; Eosinophils # (auto) 0.39 K/uL (0.00-0.50); Eosinophils % (auto) 1.5 %; Immature Granulocytes # (auto) 0.86 K/uL (0.01-0.20); Immature Granulocytes % (auto) 3.3 %; Lymphocytes # (auto) 1.01 K/uL (1.20-3.40); Lymphocytes % (auto) 3.8 %; Monocytes # (auto) 1.66 K/uL (0.11-0.59); Monocytes % (auto) 6.3 %; Neutrophils % (auto) 84.7 %
--- NOTE | 2023-07-05 07:47 | Hospitalist Progress Note ---
Date of Service July 05, 2023 Assessment & Plan (1) Sepsis: Plan Pt is a 32yoM with PMHx significant for chronic pain on methadone, HCV status post Mavyret Rx, GERD, mood disorder, chronic anemia (baseline hemoglobin 11- 12), ongoing tobacco abuse admitted with sepsis in the setting of pneumonia and cellulitis. Severe Sepsis Pneumonia, CAP vs. Aspiration WBC elevated >27K on admission, febrile, tachycardic with noted infectious source in lungs and lower extremities Hypotensive meets sepsis criteria Lactate was normal, procalcitonin elevated at 2.51 Chest XR with concerning opacity in lingula, chest CTA confirming LLL and lingula pneumonia, no PE. Also noted mediastinal lymphadenopathy possibly reactive, trace pleural effusions. Sputum Cx - negat. Blood Cx x 2 pending Continue with Flagyl, Cefepime and Doxycycline ordered -> because pt febrile - doxy changed to vanco by technical rep - cont. added guaifenesin, flutter valve. pt reports cough improved. 07/04 Pt febrile last evening. WBC still elevated but pt feeling better and LLE less edematous and less erythematous. LLE Cellulitis Pt with bilateral lower extremity cellulitis Admits to injecting IV drugs into his lower extremities CT LLE noting cellulitis changes Consider MRI to definitely rule out osteomyelitis RLE Venous doppler with no signs of DVT Continue with Cefepime and vancomycin as noted above Obtain skin/wound cultx sctrotum wound cultx - pending wound care consulted Iron Deficiency Anemia Pt with noted chronic anemia baseline hemoglobin 11-12, currently at baseline Noted microcytic Iron level <10, b12 appears oversupplemented, folate wnl IV Venofer ordered previously for iron supplementation Melena Reported in the ED Pt currently at baseline hgb On IV ppi GI was consulted on admission Recommending outpt followup Hyponatremia Pt with noted sodium of 126 on admission Received multiple fluid boluses in the ED Sodium slowly increasing, currently 134 Urine sodium <10, urine osm low at 272 monitor BMP Hypomagnesemia Replete and monitor UTI - ruled out UA was suggestive of infection Urine Cx negative IV Drug Use Pt admits to injecting into his lower extremities Notes recent fentanyl overdose On methadone chronically, follows with a methadone clinic. Recent d/c due to marylu g use. On bowel reigmen with senna, pr miralax Toxicology screen this admission positive for opiates, methadone, amphetamines, MDMA. Per admitting doc, pt's outpt methadone provider recommending daily 175 mg p.o. daily until discharge. (Split daily dosing of 87.5 mg p.o. twice daily also an option if patient pain not controlled with usual daily dosing as per provider) Pt currently declining spilt dosing. Echo with no evidence of vegetations suggestive of endocarditis at this time. Per CM, pt would like dual facility treatment/rehab on discharge (CM would like heads up on when stable for discharge to start the search/referral process) Chest Pain Pt presented with chest pain as well. hs-trop was wnl, EKG noted sinus tachycardia CT chest as noted above with pneumonia but no PE Echo with EF 60-65%, no valvular abnormalities and with no evidence of vegetations suggestive of endocarditis at this time Headache Pt with severe headache on admission Head CT with no acute abnormalities MRI was ordered but Pt DECLINED further evaluation with brain MRI stating that his headache has since gotten better and was likely related to his pain Again with AL and wanted to proceed w/ MRI - brain MRI negative Melena Reported in the ED GI was consulted on admission Recommending outpt followup Splenomegaly Noted incidentally on CT imaging HCV status post Mavyret Rx INR slightly elevated at 1.2 Stable otherwise mood disorder not on maintenance medications patient denies suicidality Diet: regular DVT prophylaxis: SCDs Re possible GI bleed Full code Dispo: Pt would like dual facility treatment/rehab on discharge (CM would like heads up on when stable for discharge to start the search/referral process) Admission and Anticipated Discharge Date Admission Date: July 02, 2023 Subjective Pt seen in follow up of sepsis, LLE cellulitis, pna, recent hx of fentanyl od, on methadone Febrile last evening. still with elevated WBC. however feeling better today. LLE less swollen and less erythematous. ID consulted Review of Systems Review of Systems: All systems reviewed & are unremarkable except as noted in Subjective Physical Exam Physical Exam: General: WD/WN young M in NAD HEENT: NC/AT Chest: Nontender to palpation. CV: RRR, No murmurs appreciated Resp: Breath sounds clear bilaterally, no increased effort of breathing. Abdomen: Soft Neuro: awake alert, answers appropriately, no facial asymmetry, moves extremities Extremities: erythematous and edematous LLE with healing lesions noted Skin: erythematous lower extremities with healing lesions Results & Data Results & Data Vital Signs (Past 12 Hours) Vital Signs Temp Pulse Pulse Resp BP BP Pulse Ox 07/05/23 07:15 87 07/05/23 03:00 37.1 C 79 20 94/51 L 95 07/04/23 22:00 83 07/04/23 22:00 37.9 C H 79 18 109/57 L 96 07/04/23 20:00 38.1 C H 82 20 107/64 94 O2 Del Method 07/05/23 07:15 07/05/23 03:00 Room Air 07/04/23 22:00 07/04/23 22:00 Room Air 07/04/23 20:00 Room Air Laboratory Results 07/05/23 07/04/23 Range/Units 05:49 15:10 WBC 26.42 H (4.8-10.8) K/ul RBC 3.43 L (4.70-6.10) M/uL Hgb 9.6 L (14.0-18.0) g/dl Hct 28.4 L (42.0-52.0) % MCV 82.8 (80.0-100.0) fL MCH 28.0 (25.0-34.0) pg MCHC 33.8 (32.0-36.0) g/dL RDW Std Deviation 41.1 (36.4-46.3) fL RDW Coeff of Randa 13.6 (11.5-14.5) % Plt Count 268 (130-400) K/uL MPV 9.7 (9.4-12.4) fL Immature Gran % (Auto) 3.3 % Neut % (Auto) 84.7 % Lymph % (Auto) 3.8 % [place] % (Auto) 6.3 % Eos % (Auto) 1.5 % Baso % (Auto) 0.4 % Neut # (Auto) 22.40 H (1.40-6.50) K/uL Lymph # (Auto) 1.01 L (1.20-3.40) K/uL [place] # (Auto) 1.66 H (0.11-0.59) K/uL Eos # (Auto) 0.39 (0.00-0.50) K/uL Baso # (Auto) 0.10 (0.00-0.20) K/uL Immature Gran # (Auto) 0.86 H (0.01-0.20) K/uL Sodium 134 L 130 L (136-145) mmol/L Potassium 2.9 L 3.6 (3.5-5.1) mmol/L Chloride 101 98 (98-107) mmol/L Carbon Dioxide 27 25 (21-32) mmol/L Anion Gap 6 7 (3-11) BUN 5 L 7 (6-23) mg/dl Creatinine 0.52 L 0.64 (0.6-1.4) mg/dl Est Cr Clr Drug Dosing 223.8 181.9 ml/min Est GFR ( Amer) > 150.0 > 150.0 ml/min Est GFR (Non-Af Amer) 141.1 129.6 ml/min BUN/Creatinine Ratio 9.6 L 10.9 (10-20) Glucose 115 H 95 (70-99(Fasting)) mg/dl Calcium 7.8 L 7.9 L (8.6-10.3) mg/dl Phosphorus 1.4 L* 1.6 L (2.5-4.9) mg/dl Magnesium 1.8 1.8 (1.7-2.4) mg/dl Total Bilirubin 0.6 (0.2-1.0) mg/dl AST 26 (13-39) U/L ALT 38 (7-52) U/L Alkaline Phosphatase 245 H (34-104) U/L Total Protein 4.8 L (6.0-8.3) gm/dl Albumin 2.6 L (3.4-5.0) gm/dl Globulin 2.2 L (2.5-4.0) gm/dl Albumin/Globulin Ratio 1.2 (0.9-2) Medications Administered Current Inpatient Medications Acetaminophen (Acetaminophen 325 Mg Tab) 325 mg PO Q6H PRN PRN Reason: fever/pain Stop: 08/01/23 19:35 Last Admin: 07/04/23 21:14 Dose: 325 mg Guaifenesin (Guaifenesin 600 Mg Tabcr) 600 mg PO Q12 [facility] Stop: 08/03/23 08:59 Last Admin: 07/04/23 21:15 Dose: 600 mg Heparin Sodium (Porcine) (Heparin Sod 5,000 Unit/0.5 Ml Vial) 5,000 units SQ Q12 [facility] Stop: 08/03/23 20:59 Last Admin: 07/04/23 21:18 Dose: Not Given Metronidazole (Flagyl) 500 mg in 100 mls @ 100 mls/hr IV Q8H [facility]; Protocol Stop: 07/10/23 05:59 Last Infusion: 07/05/23 06:38 Dose: Infused Cefepime HCl 2,000 mg/ Syringe 20 mls @ 5 mls/min IV Q8H [facility]; Protocol Stop: 07/10/23 03:59 Last Admin: 07/05/23 03:54 Dose: 5 mls/min Pantoprazole Sodium 40 mg/ (Syringe) 10 mls @ 5 mls/min IV BID [facility] Stop: 08/02/23 08:59 Last Admin: 07/04/23 21:17 Dose: 5 mls/min Acetaminophen (Ofirmev) 1,000 mg in 100 mls @ 400 mls/hr IV Q8H PRN PRN Reason: pain/fever not relieved by ora Stop: 07/06/23 05:13 Vancomycin HCl 1,250 mg/ (Sodium Chloride) 275 mls @ 200 mls/hr IV Q8H [facility] Stop: 07/11/23 18:59 Last Infusion: 07/05/23 05:38 Dose: Infused Sodium Chloride (Nss) 1,000 mls @ 100 mls/hr IV .Q10H [facility] Stop: 08/03/23 16:29 Last Admin: 07/04/23 16:55 Dose: 100 mls/hr Lactobacillus Acidophilus (Advanced Probiotic 1250 Mg Capsule) 2 cap PO DAILY [facility] Stop: 08/03/23 08:59 Last Admin: 07/04/23 09:56 Dose: 2 cap Magnesium Oxide (Magnesium Oxide 400 Mg Tab) 400 mg PO BID [facility] Stop: 08/03/23 13:59 Last Admin: 07/04/23 23:51 Dose: 400 mg Methadone HCl (Methadone Oral Soln 2 Mg/Ml) 175 mg PO DAILY [facility] Stop: 07/05/23 12:00 Last Admin: 07/05/23 06:15 Dose: 175 mg Methadone HCl (Methadone Oral Soln 2 Mg/Ml) 175 mg PO Q24H [facility] Stop: 07/20/23 05:59 Miscellaneous Information (Vancomycin Consult Active) 1 each N/A UD PRN PRN Reason: Consult Stop: 08/03/23 07:05 Non-Formulary Medication (Patient's Own Controlled Med 1) 1 each PO Q24H [facility] Stop: 07/19/23 05:59 Last Admin: 07/05/23 06:15 Dose: Not Given Oxycodone HCl (Oxycodone Hcl Ir 5 Mg Tab (Immediate Release)) 5 mg PO Q6H PRN PRN Reason: Pain Stop: 07/17/23 02:11 Last Admin: 07/05/23 04:40 Dose: 5 mg Polyethylene Glycol (Polyethylene (Miralax) 17 Gm Pack) 17 gm PO DAILY [facility] Stop: 08/03/23 08:59 Last Admin: 07/04/23 09:55 Dose: Not Given Potassium Chloride (Potassium Chloride Crtab 20 Meq Tabcr) 40 meq PO NOW STA Stop: 07/05/23 07:48 Potassium Phosphate (Pot Phosphate Monobasic W/ Sod Tab) 1 tab PO QID [facility] Stop: 08/04/23 08:59 Potassium Phosphate (Potassium Phos 3 Mmol/1 Ml Infusion) 9 mmol IV NOW STA Stop: 07/05/23 07:50 Senna/Docusate Sodium (Docusate Sodium/Senna 50/8.6mg Tab) 1 tab PO BID [facility] Stop: 08/02/23 08:59 Last Admin: 07/04/23 21:15 Dose: 1 tab
[2023-07-05] MEDS ORDERED: POTASSIUM PHOS 3 MMOL/1 ML INFUSION IV STA (07:49)
[2023-07-05] MEDS: POTASSIUM PHOSPHATE 9 MMOL in SODIUM CHLORIDE 0.9% 250 ML IV STA (08:20)
[2023-07-05] MEDS: POTASSIUM CHLORIDE CRTAB 20 MEQ TABCR PO STA (08:27)
[2023-07-05] MEDS: POT PHOSPHATE MONOBASIC W/ SOD TAB PO SCH (08:58)
[2023-07-05] MEDS: VANCOMYCIN LEVEL ONE (11:23)
--- NOTE | 2023-07-05 11:36 | Pharmacy Report ---
Pharmacy PK ABX Note - Date of Service July 05, 2023 - Assessment and Plan Assessment 07/05: Reviewed vancomycin level, predicting subtherapeutic, will increase dosing. Patient Tmax 38.1C x24 hours, WBC count still elevated and patient has a history of IV drug abuse with high MDR risk. ID consulted. With all these factors and patient's young age, will lean towards aggressive adjustments 07/04: 32 year old M receiving cefepime/vancomycin for treatment of CAP vs aspiration pneumonia and cellulits . Pertinent microbiologic data includes: Positive MRSA Nasal Swab, blood culture growing 07/02 NGx24 hours, repeat blood culture 07/04/ pending, Urine culture NG, sputum gram stain w/ mod GPCs, rare GNBs, GNCs,GPBs, moderate duke noted (final culture and identification pending). Was ordered doxycycline on admission, but changed last night to vancomycin due to fevers and elevated WBC. He did receive a loading dose of vancomycin in the ED on 07/02, but that dose has likely almost completely cleared at this point as he has normal renal function, so he was reloaded. Day # 2 of Vancomycin therapy (Day #4 of antimicrobial therapy) Plan Vancomycin * Current dose: 1250 mg IV every 8 hours * Increase dose to vancomycin 1750mg Q8H * Regimen is predicted to achieve target AUC/TIN of 400-600 mg/L.hr * Random level ordered for: 07/06/23 @1130 Pharmacy will continue to follow and will adjust dose/frequency as necessary. Thank you. Pharmacy has transitioned to AUC monitoring for vancomycin. AUC/TIN is the preferred PK/PD target and is associated with decreased risk of nephrotoxicity compared to traditional trough targets.
[2023-07-05] MEDS: VANCOMYCIN HCL 1,750 MG in SODIUM CHLORIDE 0.9% 500 ML IV SCH (12:25)
[2023-07-05] MEDS ORDERED: Nursing to Pharmacy Communication SCH (23:00)
[2023-07-06] MEDS: METHADONE ORAL SOLN 2 MG/ML PO SCH (05:58)
[2023-07-06 06:26] LABS: Hematocrit (blood only) 26.9 % (42.0-52.0); Hemoglobin 9.1 g/dl (14.0-18.0); Mean Corpuscular Hemoglobin 27.9 pg (25.0-34.0); Mean Corpuscular Hgb Conc 33.8 g/dL (32.0-36.0); Mean Corpuscular Volume 82.5 fL (80.0-100.0); Mean Platelet Volume 9.1 fL (9.4-12.4); Platelet Count 348 K/uL (130-400); RDW Coefficient of Variation 14.1 % (11.5-14.5); RDW Standard Deviation 42.7 fL (36.4-46.3); Red Blood Count 3.26 M/uL (4.70-6.10)
[2023-07-06 06:39] LABS: Alanine Aminotransferase 29 U/L (7-52); Albumin Globulin Ratio 1.1 (0.9-2); Albumin Level 2.5 gm/dl (3.4-5.0); Alkaline Phosphatase 215 U/L (34-104); Anion Gap 7 (3-11); Aspartate Aminotransferase 18 U/L (13-39); BUN Creatinine Ratio 8.1 (10-20); Bilirubin,Total 0.4 mg/dl (0.2-1.0); Blood Urea Nitrogen 5 mg/dl (6-23); Calcium 7.8 mg/dl (8.6-10.3); Carbon Dioxide 28 mmol/L (21-32); Chloride 102 mmol/L (98-107); Creatinine Clr Calc Pharmacy 187.7 ml/min; Est GFR (African American) > 150.0 ml/min; Est GFR (Non-African American) 131.3 ml/min; Globulin 2.3 gm/dl (2.5-4.0); Glucose 109 mg/dl (70-99(Fasting)); Magnesium 1.8 mg/dl (1.7-2.4); Phosphorus 2.5 mg/dl (2.5-4.9); Potassium 2.8 mmol/L (3.5-5.1); Sodium 137 mmol/L (136-145); Total Protein 4.8 gm/dl (6.0-8.3)
[2023-07-06 06:52] LABS: ALC (manual) 1.21 K/uL (1.2-3.4); ANC (manual) 18.56 K/uL (1.4-6.5); Eosinophils # (manual) 0.24 K/uL (0-0.50); Eosinophils % (manual) 1 %; Lymphocytes # (manual) 1.21 K/uL (1.2-3.4); Lymphocytes % (manual) 5 %; Metamyelocytes # (manual) 1.45 K/uL (0-0); Metamyelocytes % (manual) 6 %; Monocytes # (manual) 1.69 K/uL (0.11-0.59); Monocytes % (manual) 7 %; Myelocytes # (manual) 0.96 K/uL (0-0); Myelocytes % (manual) 4 %; Neutrophils # (manual) 18.56 K/uL (1.40-6.50); Neutrophils % (manual) 77 %; RBC Morphology Unremarkable
--- NOTE | 2023-07-06 08:16 | Hospitalist Progress Note ---
Date of Service July 06, 2023 Assessment & Plan (1) Sepsis: Plan Pt is a 32yoM with PMHx significant for chronic pain on methadone, HCV status post Mavyret Rx, GERD, mood disorder, chronic anemia (baseline hemoglobin 11- 12), ongoing tobacco abuse admitted with sepsis in the setting of pneumonia and cellulitis. Severe Sepsis Pneumonia, CAP vs. Aspiration WBC elevated >27K on admission, febrile, tachycardic with noted infectious source in lungs and lower extremities Hypotensive meets sepsis criteria Lactate was normal, procalcitonin elevated at 2.51 Chest XR with concerning opacity in lingula, chest CTA confirming LLL and lingula pneumonia, no PE. Also noted mediastinal lymphadenopathy possibly reactive, trace pleural effusions. Sputum Cx - negat. Blood Cx x 2 pending Continue with Flagyl, Cefepime and Doxycycline ordered -> because pt febrile - doxy changed to vanco by medical delivery driver - cont. added guaifenesin, flutter valve. pt reports cough improved. 07/04 Pt febrile last evening. WBC still elevated but pt feeling better and LLE less edematous and less erythematous. 07/05 Afebrile, feeling better. WBC still elevated. LLE less erythematous and edematous. Pt reports he can't stand on it though. LLE Cellulitis Pt with bilateral lower extremity cellulitis Admits to injecting IV drugs into his lower extremities CT LLE noting cellulitis changes Consider MRI to definitely rule out osteomyelitis RLE Venous doppler with no signs of DVT Continue with Cefepime and vancomycin as noted above Obtain skin/wound cultx sctrotum , and leg skin wound cultx - pending wound care consulted Iron Deficiency Anemia Pt with noted chronic anemia baseline hemoglobin 11-12, currently at baseline Noted microcytic Iron level <10, b12 appears oversupplemented, folate wnl IV Venofer ordered previously for iron supplementation Melena Reported in the ED Pt currently at baseline hgb On IV ppi GI was consulted on admission Recommending outpt followup Hyponatremia Pt with noted sodium of 126 on admission Received multiple fluid boluses in the ED Sodium slowly increasing, currently 134 Urine sodium <10, urine osm low at 272 monitor BMP Hypomagnesemia Replete and monitor UTI - ruled out UA was suggestive of infection Urine Cx negative IV Drug Use Pt admits to injecting into his lower extremities Notes recent fentanyl overdose On methadone chronically, follows with a methadone clinic. Recent d/c due to drug use. On bowel reigmen with senna, pr miralax Toxicology screen this admission positive for opiates, methadone, amphetamines, MDMA. Per admitting doc, pt's outpt methadone provider recommending daily 175 mg p.o. daily until discharge. (Split daily dosing of 87.5 mg p.o. twice daily also an option if patient pain not controlled with usual daily dosing as per provider) Pt currently declining spilt dosing. Echo with no evidence of vegetations suggestive of endocarditis at this time. Per CM, pt would like dual facility treatment/rehab on discharge (CM would like heads up on when stable for discharge to start the search/referral process) Chest Pain Pt presented with chest pain as well. hs-trop was wnl, EKG noted sinus tachycardia CT chest as noted above with pneumonia but no PE Echo with EF 60-65%, no valvular abnormalities and with no evidence of vegetations suggestive of endocarditis at this time Headache Pt with severe headache on admission Head CT with no acute abnormalities MRI was ordered but Pt DECLINED further evaluation with brain MRI stating that his headache has since gotten better and was likely related to his pain Again with AL and wanted to proceed w/ MRI - brain MRI negative Melena Reported in the ED GI was consulted on admission Recommending outpt followup Splenomegaly Noted incidentally on CT imaging HCV status post Mavyret Rx INR slightly elevated at 1.2 Stable otherwise mood disorder not on maintenance medications patient denies suicidality Diet: regular DVT prophylaxis: SCDs Re possible GI bleed Full code Dispo: Pt would like dual facility treatment/rehab on discharge (CM would like heads up on when stable for discharge to start the search/referral process) Admission and Anticipated Discharge Date Admission Date: July 02, 2023 Subjective Pt seen in follow up of sepsis, LLE cellulitis, pna, recent hx of fentanyl od, o n methadone Still with elevated WBC but afebrile now. feeling better today. LLE less swollen and less erythematous. ID consulted No chest pain, shortness of breath or abd. pain. Review of Systems Review of Systems: All systems reviewed & are unremarkable except as noted in Subjective Physical Exam Physical Exam: General: WD/WN young M in NAD HEENT: NC/AT Chest: Nontender to palpation. CV: RRR, No murmurs appreciated Resp: Breath sounds clear bilaterally, no increased effort of breathing. Abdomen: Soft Neuro: awake alert, answers appropriately, no facial asymmetry, moves extremities Extremities: erythematous and edematous LLE (improved) with healing lesions noted Skin: erythematous lower extremities with healing lesions (improved) Results & Data Results & Data Vital Signs (Past 12 Hours) Vital Signs Temp Pulse Pulse Resp BP BP Pulse Ox 07/06/23 08:13 36.8 C 80 16 122/69 93 07/06/23 07:22 83 07/06/23 03:38 37.1 C 77 16 117/76 94 07/05/23 23:29 37.3 C 80 16 124/69 99 07/05/23 21:59 85 O2 Del Method 07/06/23 08:13 Room Air 07/06/23 07:22 07/06/23 03:38 Room Air 07/05/23 23:29 Room Air 07/05/23 21:59 Laboratory Results 07/06/23 07/05/23 Range/Units 05:50 10:31 WBC 24.10 H (4.8-10.8) K/ul RBC 3.26 L (4.70-6.10) M/uL Hgb 9.1 L (14.0-18.0) g/dl Hct 26.9 L (42.0-52.0) % MCV 82.5 (80.0-100.0) fL MCH 27.9 (25.0-34.0) pg MCHC 33.8 (32.0-36.0) g/dL RDW Std Deviation 42.7 (36.4-46.3) fL RDW Coeff of Randa 14.1 (11.5-14.5) % Plt Count 348 (130-400) K/uL MPV 9.1 L (9.4-12.4) fL Neutrophils % (Manual) 77 % Lymphocytes % (Manual) 5 % Monocytes % (Manual) 7 % Eosinophils % (Manual) 1 % Metamyelocytes % (Man) 6 % Myelocytes % (Man) 4 % Neutrophils # (Manual) 18.56 H (1.40-6.50) K/uL Total Absolute Neuts 18.56 H (1.4-6.5) K/uL Lymphocytes # (Manual) 1.21 (1.2-3.4) K/uL Total Abs Lymphocytes 1.21 (1.2-3.4) K/uL Monocytes # (Manual) 1.69 H (0.11-0.59) K/uL Eosinophils # (Manual) 0.24 (0-0.50) K/uL Metamyelocytes # (Man) 1.45 H (0-0) K/uL Myelocytes # (Manual) 0.96 H (0-0) K/uL RBC Morphology Unremarkable Sodium 137 (136-145) mmol/L Potassium 2.8 L (3.5-5.1) mmol/L Chloride 102 (98-107) mmol/L Carbon Dioxide 28 (21-32) mmol/L Anion Gap 7 (3-11) BUN 5 L (6-23) mg/dl Creatinine 0.62 (0.6-1.4) mg/dl Est Cr Clr Drug Dosing 187.7 ml/min Est GFR ( Amer) > 150.0 ml/min Est GFR (Non-Af Amer) 131.3 ml/min BUN/Creatinine Ratio 8.1 L (10-20) Glucose 109 H (70-99(Fasting)) mg/dl Calcium 7.8 L (8.6-10.3) mg/dl Phosphorus 2.5 D (2.5-4.9) mg/dl Magnesium 1.8 (1.7-2.4) mg/dl Total Bilirubin 0.4 (0.2-1.0) mg/dl AST 18 (13-39) U/L ALT 29 (7-52) U/L Alkaline Phosphatase 215 H (34-104) U/L Total Protein 4.8 L (6.0-8.3) gm/dl Albumin 2.5 L (3.4-5.0) gm/dl Globulin 2.3 L (2.5-4.0) gm/dl Albumin/Globulin Ratio 1.1 (0.9-2) Random Vancomycin 8.2 L (10-20) mcg/ml Medications Administered Current Inpatient Medications Acetaminophen (Acetaminophen 325 Mg Tab) 325 mg PO Q6H PRN PRN Reason: fever/pain Stop: 08/01/23 19:35 Last Admin: 07/05/23 11:40 Dose: 325 mg Guaifenesin (Guaifenesin 600 Mg Tabcr) 600 mg PO Q12 [facility] Stop: 08/03/23 08:59 Last Admin: 07/05/23 20:27 Dose: 600 mg Heparin Sodium (Porcine) (Heparin Sod 5,000 Unit/0.5 Ml Vial) 5,000 units SQ Q12 [facility]IBAL Stop: 08/03/23 20:59 Last Admin: 07/05/23 20:28 Dose: Not Given Metronidazole (Flagyl) 500 mg in 100 mls @ 100 mls/hr IV Q8H [facility]; Protocol Stop: 07/10/23 05:59 Last Infusion: 07/06/23 07:33 Dose: Infused Cefepime HCl 2,000 mg/ Syringe 20 mls @ 5 mls/min IV Q8H [facility]; Protocol Stop: 07/10/23 03:59 Last Admin: 07/06/23 03:17 Dose: 5 mls/min Pantoprazole Sodium 40 mg/ (Syringe) 10 mls @ 5 mls/min IV BID [facility] Stop: 08/02/23 08:59 Last Admin: 07/05/23 20:27 Dose: 5 mls/min Sodium Chloride (Nss) 1,000 mls @ 100 mls/hr IV .Q10H [facility] Stop: 08/03/23 16:29 Last Admin: 07/06/23 03:20 Dose: 100 mls/hr Vancomycin HCl 1,750 mg/ (Sodium Chloride) 535 mls @ 200 mls/hr IV Q8H [facility] Stop: 07/11/23 11:59 Last Infusion: 07/06/23 05:59 Dose: Infused Lactobacillus Acidophilus (Advanced Probiotic 1250 Mg Capsule) 2 cap PO DAILY [facility] Stop: 08/03/23 08:59 Last Admin: 07/05/23 08:22 Dose: 2 cap Magnesium Oxide (Magnesium Oxide 400 Mg Tab) 400 mg PO BID [facility] Stop: 08/03/23 13:59 Last Admin: 07/05/23 20:27 Dose: 400 mg Methadone HCl (Methadone Oral Soln 2 Mg/Ml) 175 mg PO Q24H [facility] Stop: 07/20/23 05:59 Last Admin: 07/06/23 05:58 Dose: 175 mg Miscellaneous Information (Vancomycin Consult Active) 1 each N/A UD PRN PRN Reason: Consult Stop: 08/03/23 07:05 Non-Formulary Medication (Patient's Own Controlled Med 1) 1 each PO Q24H [facility] Stop: 07/19/23 05:59 Last Admin: 07/06/23 05:58 Dose: Not Given Oxycodone HCl (Oxycodone Hcl Ir 5 Mg Tab (Immediate Release)) 5 mg PO Q6H PRN PRN Reason: Pain Stop: 07/17/23 02:11 Last Admin: 07/05/23 16:39 Dose: 5 mg Polyethylene Glycol (Polyethylene (Miralax) 17 Gm Pack) 17 gm PO DAILY [facility] Stop: 08/03/23 08:59 Last Admin: 07/05/23 08:49 Dose: Not Given Potassium Phosphate (Pot Phosphate Monobasic W/ Sod Tab) 1 tab PO QID [facility] Stop: 08/04/23 08:59 Last Admin: 07/05/23 20:27 Dose: 1 tab Senna/Docusate Sodium (Docusate Sodium/Senna 50/8.6mg Tab) 1 tab PO BID [facility] Stop: 08/02/23 08:59 Last Admin: 07/05/23 20:28 Dose: 1 tab
[2023-07-06] MEDS: POTASSIUM CHLORIDE CRTAB 20 MEQ TABCR PO STA (08:37)
--- NOTE | 2023-07-06 12:26 | Infectious Disease Consult ---
Date of Service July 06, 2023 Telehealth Information I performed this visit using a real-time telehealth connection between my location and the patients location ([facility]). After connecting through interactive tele-video, patient was identified by name and date of and/or wristband check.Patient (or authorized healthcare licensing representative) was informed that this was a telemedicine visit and it was being conducted confidentially over secure lines. My office door was closed and no one else was present in the room with me.Patient (or authorized healthcare licensing representative) provided consent to proceed with the visit, expressed an understanding of privacy and security of the telemedicine visit, and gave permission to have a hospital licensing representative in the room in order to assist with the visit and to conduct portions of the visit, as needed. I informed the patient (or authorized healthcare licensing representative) that I reviewed their record and presented the opportunity for them to ask any questions regarding the visit today. The patient agreed to participate. Assessment & Plan (1) Cellulitis of leg: (2) History of intravenous drug abuse: (3) Left lower lobe pneumonia: (4) Sepsis: Plan Patient presenting with malaise and productive cough with findings suggestive of PNA and cellulitis. The PNA may be from an aspiration event in the setting of recent overdose. He is currently receiving vanco, cefepime, and flagyl. Superficial cultures of his wounds are growing GAS and sputum cultures are only growing normal duke. GAS is an extremely virulent organism and thus given ongoing pain as well as worsening redness and leukocytosis recommend MRI of the LLE to further evaluate 1. Recommend stopping vanc, cefepime, and flagyl 2. Start Ceftriaxone 2g daily and clindamycin 900 IV TID for antitoxin effect 3. MRI LLE 4. If he clinically worsens in any way would additionally recommend surgical evaluation for necrotizing fasciitis I have seen the patient today with Dr. Marie and agree with the findings and recommendations as outlined. Persistent leukocytosis and unresolved cellulitis. Extreme pain a concern with Group A Strep though his pain contol tolerance in the setting of active IVDU confounds the picture. Adding anti-toxin abx is important as well as imaging and even surgical evaluation if progression. Final abx plans remain pending. Byron Lagunas MD History of Present Illness History of Present Illness Patient w/ pmhx of IVDU, HCV s/p Mavyret. Patient presented bilateral leg swelling L>R in the week leading up to admission. He has also been experiencing weight loss. Denies fevers and chills. He is actively using multiple IV drugs which he has injected into his legs. He reported snorting fentanyl which resulted in an overdose. In the days leading up to admission he also developed worsening fatigue with a productive cough. He was brought to the ED by his father who noted that he was weak and ill-appearing. CT of the chest showed Airspace consolidation in the left lower lobe and lingula. 4 sets of blood cultures have been sent which have had no growth. TTE without vegetations. Sputum culture with normal duke. He had superficial swabs of multiple wounds including his scrotum and a leg wound, both of which are growing GAS. CT of the lower extremities was suggestive of cellulitis, no abscess or bone involvement. Patient was complaining of a headache and MRI of the brain was performed which was negative. He is currently receiving vancomycin, cefepime, and metronidazole. Of note, patient was evaluated at [facility] 02/09/23 for a lump on his RLE. I&D was performed and grew MRSA. When I spoke with patient he stated that the pain remains severe in his left leg to the point that he can not even walk on it. He continues to have significant leukocytosis. Allergies Allergy/AdvReac Type Severity Reaction Status Date / Time chlorpromazine Allergy Severe facial Verified 07/02/23 16:43 [From Thorazine] swelling and agitation amoxicillin Allergy Intermediate leg and Verified 12/11/22 19:28 feet swelling Home Medications Medication Instructions Recorded Confirmed Type methadone 200 mg PO DAILY 07/02/23 07/02/23 History Patient History Medical History Methamphetamine abuse Surgical History No pertinent past surgical history Social History Smoking Status: Current every day smoker Tobacco Type: Cigarettes Do You Dip or Chew Tobacco: No; Tobacco Cessation Education Requested by Patient: No Hx Alcohol Use: Yes Hx Substance Use: Yes Substance Use Type Other:: fentanyl Preferred Language: Mohawk Communication Ability: Effective [employer]ob[employer] Repairer Required: No Beliefs That Will Affect Care: None Current Living Situation: Homeless Feels Safe at Home: Yes Safety Concerns: Feels Safe At This Time Assistive Devices: None Review of Systems Full ROS was performed and is negative unless mentioned in the HPI. Physical Exam PE limited by telemed visit Alert and oriented Photos of wound reviewed Results & Data Vital Signs (Past 12 Hours) Vital Signs Temp Pulse Pulse Resp BP Pulse Ox O2 Del Method 07/06/23 11:21 37.0 C 70 18 120/64 95 Room Air 07/06/23 08:13 36.8 C 80 16 122/69 93 Room Air 07/06/23 07:22 83 07/06/23 03:38 37.1 C 77 16 117/76 94 Room Air Laboratory Results Microbiology 07/04/23 17:00 Scrotum Gram Stain - Final 07/04/23 17:00 Scrotum Wound Culture - Final Group A Beta Strep 07/05/23 14:57 Thigh,Right Gram Stain - Final 07/05/23 14:57 Thigh,Right Wound Culture - Preliminary Group A Beta Strep 07/05/23 15:05 Buttock,Right Gram Stain - Final 07/05/23 15:05 Buttock,Right Wound Culture - Preliminary Pin-point growth present, reincubating. 07/04/23 08:38 Blood Aerobic Blood Culture - Preliminary No growth in Aerobic bottle after 48 hours. 07/04/23 08:38 Blood Anaerobic Blood Culture - Final 07/04/23 08:38 Blood Aerobic Blood Culture - Preliminary No growth in Aerobic bottle after 48 hours. 07/04/23 08:38 Blood Anaerobic Blood Culture - Preliminary No growth in Anaerobic bottle after 48 hours. 07/03/23 10:12 Sputum, Expectorated Gram Stain - Final 07/03/23 10:12 Sputum, Expectorated Sputum Culture - Final Moderate normal duke. 07/02/23 16:54 Blood Aerobic Blood Culture - Preliminary No growth in Aerobic bottle after 48 hours. 07/02/23 16:54 Blood Anaerobic Blood Culture - Preliminary No growth in Anaerobic bottle after 48 hours. 07/02/23 Unknown Blood Aerobic Blood Culture - Preliminary No growth in Aerobic bottle after 48 hours. 07/02/23 Unknown Blood Anaerobic Blood Culture - Final 07/02/23 Unknown Urine,Clean Catch Urine Culture - Final No growth - less than 1,000 colonies/mL. Diagnostic Findings Chest X-Ray 07/02/23 15:06 SINGLE VIEW CHEST CLINICAL HISTORY: Sepsis. FINDINGS: A PA chest radiograph is compared to study dated 05/15/2023. The cardiomediastinal silhouette is unremarkable. Question mild patchy airspace opacities in the lingula. No pleural effusion or pneumothorax is seen. The bony thorax is grossly intact. IMPRESSION: Question mild airspace opacities in the lingula. Correlate clinically for evidence of a mild pneumonitis. Radiographic follow-up to resolution is recommended. ACT 112: Negative or not required by law. Electronically signed by: Sen Reis M.D. 07/02/2023 3:[address] 07/02/23 17:00 CT SCAN OF THE BRAIN WITHOUT IV CONTRAST CLINICAL HISTORY: Headache. Fever. IV drug use. COMPARISON STUDY: CT of the brain dated 05/15/2023. TECHNIQUE: Unenhanced axial CT scan of the brain is performed from the vertex to the skull base. A dose lowering technique was utilized adhering to the princip les of AMANDA. The patient was scanned twice due to motion artifact. FINDINGS: Brain parenchyma: The brain parenchyma is normal in appearance. There is no hemorrhage, mass effect, or evidence of acute territorial ischemia by CT criteria. Acosta-white matter differentiation is preserved. No extra-axial fluid collection is seen. Ventricles, sulci, cisterns: Normal in configuration. Intracranial vasculature: The visualized intracranial vasculature at the skull base is normal in appearance. Calvarium: Unremarkable. Sinuses and mastoids: The visualized paranasal sinuses are clear. The mastoid air cells are well pneumatized. Orbits: The bony orbits are grossly intact. IMPRESSION: There is no hemorrhage, mass effect, or evidence of acute territorial ischemia by CT criteria. ACT 112: Negative or not required by law. Electronically signed by: Sen Reis M.D. 07/02/2023 6:45 PM Chest CTA 07/02/23 17:16 CT ANGIOGRAM OF THE CHEST CLINICAL HISTORY: Fever. Edema. History of intravenous drug use. COMPARISON STUDY: Chest x-ray dated 07/02/2023 TECHNIQUE: Following the IV administration of 109 cc of Optiray 320, CT angiogram of the chest was performed from the upper abdomen to the thoracic inlet utilizing the pulmonary embolus protocol. Images are reviewed in the axial, sagittal, and coronal planes. 3-D MIPS images are created and assessed. IV contrast was administered without complication. A dose lowering technique was utilized adhering to the principles of ALARA. The examination is degraded by suboptimal contrast opacification of the pulmonary arteries. There is also motion artifact. CT DOSE: 1879.44 mGy.cm FINDINGS: Thyroid: Imaged portions of the thyroid gland are normal in size and attenuation. Thoracic aorta: The thoracic aorta is normal in caliber and demonstrates standard 3-vessel arch anatomy. No dissection is seen. Pulmonary vasculature: The pulmonary trunk is normal in caliber. There are no filling defects identified in main, lobar, or proximal segmental pulmonary branches to suggest pulmonary embolus. Evaluation of the peripheral branches is degraded by motion artifact and lack of contrast opacification. Heart: The heart is mildly enlarged and without pericardial effusion. Lungs and pleural spaces: Evaluation of the lung parenchyma is degraded by motion artifact. There is patchy airspace consolidation in the left lower lobe and lingula typical for pneumonia. There is trace left pleural effusion. The right lung appears clear. The trachea and central airways are patent. Mediastinum: There are numerous prominent mediastinal lymph nodes which measure up to 9 mm in short axis. Ailyn: Clear. Axillae: There is no axillary lymphadenopathy. Upper abdomen: The spleen is mildly enlarged measuring 13.5 cm in length. Partially visualized upper abdominal viscera is otherwise grossly unremarkable. Skeletal structures: No lytic or blastic bony lesions are seen. Soft tissues: Gynecomastia is noted. IMPRESSION: 1. There is no evidence of central pulmonary embolus in the main, lobar, or proximal segmental pulmonary arteries. The distal segmental and subsegmental branches are not well assessed. 2. Airspace consolidation in the left lower lobe and lingula is typical for pneumonia. Clinical correlation will be required and radiographic follow-up to resolution is recommended. 3. Trace of pleural effusion. 4. There are numerous prominent mediastinal lymph nodes which are nonspecific and likely reactive. 5. Mild splenomegaly. 6. Additional findings as above. ACT 112: Negative or not required by law. Electronically signed by: Sen Reis M.D. 07/02/2023 7:02 PM Venous Doppler Study 07/02/23 20:19 Exam(s): US VENOUS RIGHT LOWER EXTREMITY EXAM: US Duplex Right Lower Extremity Veins CLINICAL HISTORY: Reason for exam: leg swelling. TECHNIQUE: Real-time duplex ultrasound scan of the right lower extremity veins integrating B-mode two-dimensional vascular structure, Doppler spectral analysis, color flow Doppler imaging and compression. COMPARISON: 12/07/2022. FINDINGS: Deep veins: Unremarkable. No DVT in the visualized common femoral, femoral, proximal deep femoral or popliteal veins. The veins demonstrate normal color flow, are normally compressible, with normal phasic flow and/or augmentation response. Superficial veins: Unremarkable. No thrombus in the visualized great saphenous vein. Soft tissues: No acute findings. No popliteal cyst. Lymph nodes: The bone enlarged lymph nodes, largest lymph node in the right groin measuring 4.0 x 1.6 x 1.8 cm consistent with lymphadenopathy, etiology indeterminate. Other findings: The patient refused examination of the left lower extremity. IMPRESSION: No ultrasonographic evidence of deep venous thrombosis involving the right lower extremity. Electronically signed by: Katie Sequeira MD 07/02/23 23:[address] 07/03/23 07:00 CT SCAN OF THE LEFT TIBIA AND FIBULA WITH IV CONTRAST CLINICAL HISTORY: Lower extremity edema. Sepsis. COMPARISON STUDY: No priors. TECHNIQUE: CT scan of the left tibia and fibula is performed from the distal femur to the foot following the IV administration of 90 cc of Optiray 320. Images are reviewed in the axial, sagittal, and coronal planes. IV contrast was administered without complication. A dose lowering technique was utilized adhering to the principles of ALARA. CT DOSE: 1302.04 mGy.cm FINDINGS: The skeletal structures are well-mineralized. There is no evidence of tibial or fibular fracture. There is no bony erosion or periostitis. The knee and ankle joints are grossly maintained. There is no evidence of osteochondral defect in the talar dome. No ankle joint effusion is identified. Diffuse subcutaneous soft tissue edema and fluid is seen throughout the left lower extremity. No organized fluid collection is seen to suggest abscess. The regional vessels appear patent. The regional musculature is normal in appearance. The Achilles tendon is intact as visualized. There is a small popliteal cyst. IMPRESSION: 1. No acute bony abnormality is identified. 2. Diffuse subcutaneous soft tissue edema and fluid is seen throughout the left lower extremity. Correlate clinically for evidence of cellulitis. 3. No organized fluid collection is seen to suggest abscess. 4. Small popliteal cyst. ACT 112: Negative or not required by law. Dictated: 07/03/2023 10:50 AM Transcribed: 07/03/2023 11:38 AM Clarke [id number] [id number] Electronically signed by: Sen Reis M.D. 07/03/2023 12:40 PM Brain MRI 07/04/23 13:58 Exam(s): MRI HEAD W/WO Contrast IV Amt: 8.5cc gadavist EXAM: MR Head Without and With Intravenous Contrast CLINICAL HISTORY: Reason for exam: AL, IVDA. TECHNIQUE: Magnetic resonance images of the head/brain without and with intravenous contrast in multiple planes. CONTRAST: Patient received 8.5cc gadavist of IV contrast COMPARISON: Head CT 07/02/2023 FINDINGS: Brain: No abnormal enhancement. No mass. No hemorrhage. No acute infarct. Ventricles: Unremarkable. No ventriculomegaly. Bones/joints: Unremarkable. No acute fracture. Sinuses: Unremarkable as visualized. No acute sinusitis. Mastoid air cells: Unremarkable as visualized. No mastoid effusion. Orbits: Unremarkable as visualized. IMPRESSION: Normal head/brain MRI. Electronically signed by: Mario Alberto Pascual MD 07/04/23 21:20 PM Medications Administered Home Medications Medication Instructions Recorded Confirmed Last Taken methadone 200 mg PO DAILY 07/02/23 07/02/23 07/01/23 Active Medications Generic Name Dose Route Start Last Admin Trade Name Freq PRN Reason Stop Dose Admin Acetaminophen 325 mg 07/02/23 19:36 07/05/23 11:40 Acetaminophen 325 Mg Tab PO 08/01/23 19:35 325 mg Q6H PRN Administration fever/pain Guaifenesin 600 mg 07/04/23 09:00 07/06/23 08:36 Guaifenesin 600 Mg Tabcr PO 08/03/23 08:59 600 mg Q12 ANIBAL Administration Heparin Sodium (Porcine) 5,000 units 07/04/23 21:00 07/06/23 08:33 Heparin Sod 5,000 Unit/0.5 Ml Vial SQ 08/03/23 20:59 Not Given Q12 ANIBAL Metronidazole 500 mg in 100 mls @ 100 mls/hr 07/03/23 06:00 07/06/23 07:33 Flagyl IV 07/10/23 05:59 Infused Q8H ANIBAL Infusion Protocol Cefepime HCl 2,000 mg/ Syringe 20 mls @ 5 mls/min 07/03/23 04:00 07/06/23 11:59 IV 07/10/23 03:59 5 mls/min Q8H ANIBAL Administration Protocol Pantoprazole Sodium 40 mg/ 10 mls @ 5 mls/min 07/03/23 09:00 07/06/23 08:35 Syringe IV 08/02/23 08:59 5 mls/min BID ANIBAL Administration Sodium Chloride 1,000 mls @ 100 mls/hr 07/04/23 16:30 07/06/23 11:59 Nss IV 08/03/23 16:29 100 mls/hr .Q10H ANIBAL Administration Vancomycin HCl 1,750 mg/ 535 mls @ 200 mls/hr 07/05/23 12:00 07/06/23 11:59 Sodium Chloride IV 07/11/23 11:59 200 mls/hr Q8H ANIBAL Administration Lactobacillus Acidophilus 2 cap 07/04/23 09:00 07/06/23 08:36 Advanced Probiotic 1250 Mg Capsule PO 08/03/23 08:59 2 cap DAILY ANIBAL Administration Magnesium Oxide 400 mg 07/04/23 14:00 07/06/23 08:36 Magnesium Oxide 400 Mg Tab PO 08/03/23 13:59 400 mg BID ANIBAL Administration Methadone HCl 175 mg 07/06/23 06:00 07/06/23 05:58 Methadone Oral Soln 2 Mg/Ml PO 07/20/23 05:59 175 mg Q24H ANIBAL Administration Non-Formulary Medication 1 each 07/05/23 06:00 07/06/23 05:58 Patient's Own Controlled Med 1 PO 07/19/23 05:59 Not Given Q24H ANIBAL Oxycodone HCl 5 mg 07/03/23 02:12 07/05/23 16:39 Oxycodone Hcl Ir 5 Mg Tab (Immediate Release) PO 07/17/23 02:11 5 mg Q6H PRN Administration Pain Polyethylene Glycol 17 gm 07/04/23 09:00 07/06/23 08:35 Polyethylene (Miralax) 17 Gm Pack PO 08/03/23 08:59 Not Given DAILY ANIBAL Potassium Phosphate 1 tab 07/05/23 09:00 07/06/23 11:59 Pot Phosphate Monobasic W/ Sod Tab PO 08/04/23 08:59 1 tab QID ANIBAL Administration Senna/Docusate Sodium 1 tab 07/03/23 09:00 07/06/23 08:35 Docusate Sodium/Senna 50/8.6mg Tab PO 08/02/23 08:59 1 tab BID ANIBAL Administration (1) Cellulitis of leg Laterality: unspecified laterality Qualified Code(s): L03.119 - Cellulitis of unspecified part of limb (3) Left lower lobe pneumonia Pneumonia type: due to unspecified organism Qualified Code(s): J18.9 - Pneumonia, unspecified organism
--- NOTE | 2023-07-06 12:37 | Pharmacy Report ---
Pharmacy PK ABX Note - Date of Service July 06, 2023 - Assessment and Plan Assessment 07/06: Reviewed vancomycin level, predicting an AUC/TIN within goal range, afebrile since addition of vancomycin, WBC still elevated. Continue current regimen> Right thigh and scrotom surface culture growing group A Beta strep. He continues on cefepime and vancomycin. 07/05: Reviewed vancomycin level, predicting subtherapeutic, will increase dosing. Patient Tmax 38.1C x24 hours, WBC count still elevated and patient has a history of IV drug abuse with high MDR risk. ID consulted. With all these factors and patient's young age, will lean towards aggressive adjustments 07/04: 32 year old M receiving cefepime/vancomycin for treatment of CAP vs aspiration pneumonia and cellulits . Pertinent microbiologic data includes: Positive MRSA Nasal Swab, blood culture growing 07/02 NGx24 hours, repeat blood culture 07/04/ pending, Urine culture NG, sputum gram stain w/ mod GPCs, rare GNBs, GNCs,GPBs, moderate duke noted (final culture and identification pending). Was ordered doxycycline on admission, but changed last night to vancomycin due to fevers and elevated WBC. He did receive a loading dose of vancomycin in the ED on 07/02, but that dose has likely almost completely cleared at this point as he has normal renal function, so he was reloaded. Day # 3 of Vancomycin therapy (Day #5 of antimicrobial therapy) Plan Vancomycin * Current dose: 1750 mg IV every 8 hours * Continue vancomycin 1750mg Q8H * Regimen is predicted to achieve target AUC/TIN of 400-600 mg/L.hr * Vancomycin level to be ordered if vancomycin continued and based on clinical status Pharmacy will continue to follow and will adjust dose/frequency as necessary. Thank you. Pharmacy has transitioned to AUC monitoring for vancomycin. AUC/TIN is the preferred PK/PD target and is associated with decreased risk of nephrotoxicity compared to traditional trough targets.
[2023-07-06] MEDS: CLINDAMYCIN/D5W 900 MG/50 ML PREMIX BAG IV SCH (17:02)
[2023-07-06] MEDS: GADOBUTROL 65ML VIAL IV ONE (19:46)
--- NOTE | 2023-07-06 20:22 | Magnetic Resonance Report ---
Exam(s): MRI EXTREMITY W/WO Contrast IV Amt: 8.5ml gadavist EXAM: MR Left Lower Extremity Without and With Intravenous Contrast, Tibia and Fibula CLINICAL HISTORY: Reason for exam: r/o osteo, abscess, nec. fasc. TECHNIQUE: Multiplanar magnetic resonance images of the left tibia and fibula without and with intravenous contrast. CONTRAST: Patient received 8.5ml gadavist of IV contrast COMPARISON: No relevant prior studies available. FINDINGS: Bones/joints: Normal marrow signal. No reactive changes or evidence of osteomyelitis. No acute fracture. No dislocation. Soft tissues: Diffuse circumferential subcutaneous soft tissue edema and skin thickening consistent with cellulitis or venous insufficiency. No rim-enhancing abscess. No soft tissue gas. No necrotizing fasciitis. Muscle bulk is preserved. No tendon tear identified. IMPRESSION: 1. Cellulitis versus venous insufficiency. No abscess or necrotizing fasciitis. 2. No evidence of acute osteomyelitis. Electronically signed by: Mario Alberto Pascual MD 07/06/23 20:21 PM
[2023-07-06] MEDS ORDERED: CLINDAMYCIN HCL 150 MG CAP PO SCH (21:00)
[2023-07-06] MEDS: cefTRIAXone SODIUM 2,000 MG in DEXTROSE 5 % MINI-B 50 ML IV SCH (21:22)
[2023-07-06] MEDS: ALBUTEROL HFA 8 GM INHALER INH PRN (23:03)
--- NOTE | 2023-07-07 06:10 | Hospitalist Progress Note ---
Date of Service July 07, 2023 Assessment & Plan (1) Sepsis: Plan Pt is a 32yoM with PMHx significant for chronic pain on methadone, HCV status post Mavyret Rx, GERD, mood disorder, chronic anemia (baseline hemoglobin 11- 12), ongoing tobacco abuse admitted with sepsis in the setting of pneumonia and cellulitis. Severe Sepsis Pneumonia, CAP vs. Aspiration WBC elevated >27K on admission, febrile, tachycardic with noted infectious source in lungs and lower extremities Hypotensive meets sepsis criteria Lactate was normal, procalcitonin elevated at 2.51 Chest XR with concerning opacity in lingula, chest CTA confirming LLL and lingula pneumonia, no PE. Also noted mediastinal lymphadenopathy possibly reactive, trace pleural effusions. Sputum Cx - negat. Blood Cx x 2 negat. in 48 hrs Continued with Flagyl, Cefepime and Doxycycline ordered -> because pt febrile - doxy changed to vanco by [facility] - cont. added guaifenesin, flutter valve. pt reports cough improved. Pt continues to breath comfortably on RA, cough overall much improved/ resolved LLE Cellulitis Pt with bilateral lower extremity cellulitis Admits to injecting IV drugs into his lower extremities CT LLE noting cellulitis changes Consider MRI to definitely rule out osteomyelitis RLE Venous doppler with no signs of DVT Continue with Cefepime and vancomycin as noted above Blood cultx - negat. in 48 hrs Scrotum wound , and leg skin wound cultx - Group A strep wound care consulted ID consulted 07/04 Pt febrile last evening. WBC still elevated but pt feeling better and LLE less edematous and less erythematous. 07/05 Afebrile, feeling better. WBC still elevated. LLE less erythematous and edematous. Pt reports he can't stand on it though. 07/06 ID consulted and discussed with - Patient presenting with malaise and prod uctive cough with findings suggestive of PNA and cellulitis. The PNA may be from an aspiration event in the setting of recent overdose. He is currently receiving vanco, cefepime, and flagyl. Superficial cultures of his wounds are growing GAS and sputum cultures are only growing normal [facility]. GAS is an extremely virulent organism and thus given ongoing pain, redness and leukocytosis recommend MRI of the LLE to further evaluate 1. Recommend stopping vanc, cefepime, and flagyl 2. Start Ceftriaxone 2g daily and clindamycin 900 IV TID for antitoxin effect - antibiotics changed 3. MRI LLE 4. If he clinically worsens in any way would additionally recommend surgical evaluation for necrotizing fasciitis Final abx plans remain pending. MR DUTTON - IMPRESSION: 1. Cellulitis versus venous insufficiency. No abscess or necrotizing fasciitis. 2. No evidence of acute osteomyelitis. Iron Deficiency Anemia Pt with noted chronic anemia baseline hemoglobin 11-12, currently above 9 Noted microcytic Iron level <10, b12 appears oversupplemented, folate wnl IV Venofer ordered previously for iron supplementation Melena Reported in the ED Pt currently at baseline hgb On IV ppi GI was consulted on admission Recommending outpt followup Hyponatremia Pt with noted sodium of 126 on admission Received multiple fluid boluses in the ED Sodium slowly increasing, currently 134 Urine sodium <10, urine osm low at 272 monitor BMP Hypomagnesemia Replete and monitor UTI - ruled out UA was suggestive of infection Urine Cx negative IV Drug Use Pt admits to injecting into his lower extremities Notes recent fentanyl overdose On methadone chronically, follows with a methadone clinic. Recent d/c due to drug use. On bowel reigmen with senna, pr miralax Toxicology screen this admission positive for opiates, methadone, amphetamines, MDMA. Per admitting doc, pt's outpt methadone provider recommending daily 175 mg p.o. daily until discharge. (Split daily dosing of 87.5 mg p.o. twice daily also an option if patient pain not controlled with usual daily dosing as per provider) Pt currently declining spilt dosing. Echo with no evidence of vegetations suggestive of endocarditis at this time. Per CM, pt would like dual facility treatment/rehab on discharge (CM would like heads up on when stable for discharge to start the search/referral process) Chest Pain Pt presented with chest pain as well. hs-trop was wnl, EKG noted sinus tachycardia CT chest as noted above with pneumonia but no PE Echo with EF 60-65%, no valvular abnormalities and with no evidence of vegetations suggestive of endocarditis at this time Headache Pt with severe headache on admission Head CT with no acute abnormalities MRI was ordered but Pt DECLINED further evaluation with brain MRI stating that his headache has since gotten better and was likely related to his pain Again with AL and wanted to proceed w/ MRI - brain MRI negative Melena Reported in the ED GI was consulted on admission Recommending outpt followup Splenomegaly Noted incidentally on CT imaging HCV status post Mavyret Rx INR slightly elevated at 1.2 Stable otherwise mood disorder not on maintenance medications patient denies suicidality Diet: regular DVT prophylaxis: SCDs Re possible GI bleed Full code Dispo: Pt would like dual facility treatment/rehab on discharge (CM would like heads up on when stable for discharge to start the search/referral process) Admission and Anticipated Discharge Date Admission Date: July 02, 2023 Subjective Pt seen in follow up of sepsis, LLE cellulitis, pna, recent hx of fentanyl od, on methadone Still with elevated WBC but improved now and afebrile. feeling better today - he was able to stand up and walk to bathroom today for the first time. LLE less swollen and less erythematous. ID consulted and discussed with yesterday - antibiotics changed yesterday to ceftriaxone and clindamycin No chest pain, shortness of breath or abd. pain. Review of Systems Review of Systems: All systems reviewed & are unremarkable except as noted in Subjective Physical Exam Physical Exam: General: WD/WN young M in NAD HEENT: NC/AT Chest: Nontender to palpation. CV: RRR, No murmurs appreciated Resp: Breath sounds clear bilaterally, no increased effort of breathing. Abdomen: Soft Neuro: awake alert, answers appropriately, no facial asymmetry, moves extremities Extremities: erythematous and edematous LLE (improved) with healing lesions noted Skin: erythematous lower extremities with healing lesions (improved) Results & Data Results & Data Vital Signs (Past 12 Hours) Vital Signs Temp Pulse Pulse Resp BP Pulse Ox O2 Del Method 07/07/23 03:54 37.0 C 66 18 116/67 95 Room Air 07/06/23 23:55 37.3 C 88 20 118/67 94 Room Air 07/06/23 23:04 89 20 96 Room Air 07/06/23 23:00 83 07/06/23 21:30 Room Air Laboratory Results 07/07/23 07/07/23 07/06/23 Range/Units 07:49 07:48 11:35 WBC 16.81 H (4.8-10.8) K/ul RBC 3.36 L (4.70-6.10) M/uL Hgb 9.3 L (14.0-18.0) g/dl Hct 28.0 L (42.0-52.0) % MCV 83.3 (80.0-100.0) fL MCH 27.7 (25.0-34.0) pg MCHC 33.2 (32.0-36.0) g/dL RDW Std Deviation 43.1 (36.4-46.3) fL RDW Coeff of Randa 14.2 (11.5-14.5) % Plt Count 304 (130-400) K/uL MPV 9.5 (9.4-12.4) fL Absolute Nucleated RBC 0.03 (0.00-0.12) K/uL Nucleated RBC % (auto) 0.2 % Sodium 139 (136-145) mmol/L Potassium 3.0 L (3.5-5.1) mmol/L Chloride 101 (98-107) mmol/L Carbon Dioxide 31 (21-32) mmol/L Anion Gap 7 (3-11) BUN 5 L (6-23) mg/dl Creatinine 0.64 (0.6-1.4) mg/dl Est Cr Clr Drug Dosing 181.9 ml/min Est GFR ( Amer) > 150.0 ml/min Est GFR (Non-Af Amer) 129.6 ml/min BUN/Creatinine Ratio 7.8 L (10-20) Glucose 107 H (70-99(Fasting)) mg/dl Calcium 7.6 L (8.6-10.3) mg/dl Phosphorus 4.3 D (2.5-4.9) mg/dl Magnesium 1.8 (1.7-2.4) mg/dl Random Vancomycin 11.1 (10-20) mcg/ml Medications Administered Current Inpatient Medications Acetaminophen (Acetaminophen 325 Mg Tab) 325 mg PO Q6H PRN PRN Reason: fever/pain Stop: 08/01/23 19:35 Last Admin: 07/05/23 11:40 Dose: 325 mg Albuterol (Albuterol Hfa 8 Gm Inhaler) 2 puffs INH Q4H PRN PRN Reason: Shortness Of Breath Or Wheezin Stop: 08/05/23 22:29 Last Admin: 07/06/23 23:03 Dose: 2 puffs Guaifenesin (Guaifenesin 600 Mg Tabcr) 600 mg PO Q12 [facility] Stop: 08/03/23 08:59 Last Admin: 07/07/23 08:26 Dose: 600 mg Heparin Sodium (Porcine) (Heparin Sod 5,000 Unit/0.5 Ml Vial) 5,000 units SQ Q12 [facility] Stop: 08/03/23 20:59 Last Admin: 07/07/23 08:25 Dose: Not Given Cefepime HCl 2,000 mg/ Syringe 20 mls @ 5 mls/min IV Q8H [facility]; Protocol Stop: 07/10/23 03:59 Last Admin: 07/06/23 11:59 Dose: 5 mls/min Pantoprazole Sodium 40 mg/ (Syringe) 10 mls @ 5 mls/min IV BID [facility] Stop: 08/02/23 08:59 Last Admin: 07/07/23 08:26 Dose: 5 mls/min Sodium Chloride (Nss) 1,000 mls @ 100 mls/hr IV .Q10H [facility] Stop: 08/03/23 16:29 Last Admin: 07/07/23 07:43 Dose: 100 mls/hr Vancomycin HCl 1,750 mg/ (Sodium Chloride) 535 mls @ 200 mls/hr IV Q8H [facility] Stop: 07/11/23 11:59 Last Infusion: 07/06/23 14:49 Dose: Infused Ceftriaxone Sodium 2,000 mg/ (Dextrose) 50 mls @ 100 mls/hr IV Q24H [facility]; Protocol Stop: 07/13/23 19:59 Last Infusion: 07/06/23 21:55 Dose: Infused Clindamycin Phosphate (Cleocin/D5w) 900 mg in 50 mls @ 100 mls/hr IV Q8H [facility] Stop: 07/08/23 15:59 Last Infusion: 07/07/23 08:25 Dose: Infused Lactobacillus Acidophilus (Advanced Probiotic 1250 Mg Capsule) 2 cap PO DAILY [facility] Stop: 08/03/23 08:59 Last Admin: 07/07/23 08:26 Dose: 2 cap Magnesium Oxide (Magnesium Oxide 400 Mg Tab) 400 mg PO BID [facility] Stop: 08/03/23 13:59 Last Admin: 07/07/23 08:26 Dose: 400 mg Methadone HCl (Methadone Oral Soln 2 Mg/Ml) 175 mg PO Q24H [facility] Stop: 07/20/23 05:59 Last Admin: 07/07/23 05:51 Dose: 175 mg Miscellaneous Information (Vancomycin Consult Active) 1 each N/A UD PRN PRN Reason: Consult Stop: 08/03/23 07:05 Non-Formulary Medication (Patient's Own Controlled Med 1) 1 each PO Q24H [facility] Stop: 07/19/23 05:59 Last Admin: 07/07/23 05:51 Dose: Not Given Oxycodone HCl (Oxycodone Hcl Ir 5 Mg Tab (Immediate Release)) 5 mg PO Q6H PRN PRN Reason: Pain Stop: 07/17/23 02:11 Last Admin: 07/07/23 08:29 Dose: 5 mg Polyethylene Glycol (Polyethylene (Miralax) 17 Gm Pack) 17 gm PO DAILY [facility] Stop: 08/03/23 08:59 Last Admin: 07/07/23 08:25 Dose: Not Given Potassium Chloride (Potassium Chloride Crtab 20 Meq Tabcr) 40 meq PO NOW STA Stop: 07/07/23 08:49 Potassium Phosphate (Pot Phosphate Monobasic W/ Sod Tab) 1 tab PO QID [facility] Stop: 08/04/23 08:59 Last Admin: 07/07/23 08:26 Dose: 1 tab Senna/Docusate Sodium (Docusate Sodium/Senna 50/8.6mg Tab) 1 tab PO BID [facility] Stop: 08/02/23 08:59 Last Admin: 07/07/23 08:25 Dose: Not Given
[2023-07-07 08:12] LABS: Hemoglobin 9.3 g/dl (14.0-18.0); Mean Corpuscular Hemoglobin 27.7 pg (25.0-34.0); Mean Corpuscular Hgb Conc 33.2 g/dL (32.0-36.0); Mean Corpuscular Volume 83.3 fL (80.0-100.0); Mean Platelet Volume 9.5 fL (9.4-12.4); Nucleated RBC # (auto) 0.03 K/uL (0.00-0.12); Nucleated RBC % (auto) 0.2 %; Platelet Count 304 K/uL (130-400); RDW Coefficient of Variation 14.2 % (11.5-14.5); RDW Standard Deviation 43.1 fL (36.4-46.3); Red Blood Count 3.36 M/uL (4.70-6.10); White Blood Count 16.81 K/ul (4.8-10.8)
[2023-07-07 08:36] LABS: Anion Gap 7 (3-11); BUN Creatinine Ratio 7.8 (10-20); Blood Urea Nitrogen 5 mg/dl (6-23); Calcium 7.6 mg/dl (8.6-10.3); Carbon Dioxide 31 mmol/L (21-32); Chloride 101 mmol/L (98-107); Creatinine Clr Calc Pharmacy 181.9 ml/min; Est GFR (African American) > 150.0 ml/min; Est GFR (Non-African American) 129.6 ml/min; Glucose 107 mg/dl (70-99(Fasting)); Magnesium 1.8 mg/dl (1.7-2.4); Phosphorus 4.3 mg/dl (2.5-4.9); Sodium 139 mmol/L (136-145)
[2023-07-07] MEDS: POTASSIUM CHLORIDE CRTAB 20 MEQ TABCR PO STA ×2 (09:13→16:18)
[2023-07-07 14:03] LABS: Amphetamine Urine, Confirm >15000 ng/mL (<250); Codeine Urine NEGATIVE ng/mL (<50); Hydrocodone Urine NEGATIVE ng/mL (<50); Hydromor Urine NEGATIVE ng/mL (<50); MDA negative; MDEA negative; MDMA (Ecstasy) Urine, Confirm negative; Methadone, Ur Metabolite 2570 ng/mL (<100); Methadone, Ur Verification 940 ng/mL (<100); Methamphetamine, Ur Confirm >15000 ng/mL (<250); Morphine Urine 922 ng/mL (<50); Norhydrocodone Conf Ur NEGATIVE ng/mL (<50); Noroxycodone Urine NEGATIVE ng/mL (<50); Oxycodone Urine NEGATIVE ng/mL (<50); Oxymorph Urine NEGATIVE ng/mL (<50)
[2023-07-07] MEDS: SENNA 8.6 MG TAB PO SCH (16:18)
[2023-07-08 06:59] LABS: Hematocrit (blood only) 27.4 % (42.0-52.0); Hemoglobin 8.9 g/dl (14.0-18.0); Mean Corpuscular Hemoglobin 27.8 pg (25.0-34.0); Mean Corpuscular Hgb Conc 32.5 g/dL (32.0-36.0); Mean Corpuscular Volume 85.6 fL (80.0-100.0); Mean Platelet Volume 8.8 fL (9.4-12.4); Platelet Count 444 K/uL (130-400); RDW Coefficient of Variation 14.6 % (11.5-14.5); RDW Standard Deviation 45.2 fL (36.4-46.3)
[2023-07-08 07:07] LABS: Anion Gap 5 (3-11); BUN Creatinine Ratio 13.5 (10-20); Blood Urea Nitrogen 7 mg/dl (6-23); Calcium 7.5 mg/dl (8.6-10.3); Carbon Dioxide 31 mmol/L (21-32); Chloride 102 mmol/L (98-107); Creatinine Clr Calc Pharmacy 223.8 ml/min; Est GFR (African American) > 150.0 ml/min; Est GFR (Non-African American) 141.1 ml/min; Glucose 84 mg/dl (70-99(Fasting)); Magnesium 1.7 mg/dl (1.7-2.4); Phosphorus 3.3 mg/dl (2.5-4.9); Potassium 3.3 mmol/L (3.5-5.1); Sodium 138 mmol/L (136-145)
--- NOTE | 2023-07-08 07:26 | Hospitalist Progress Note ---
Date of Service July 08, 2023 Assessment & Plan (1) Sepsis: Plan Pt is a 32yoM with PMHx significant for chronic pain on methadone, HCV status post Mavyret Rx, GERD, mood disorder, chronic anemia (baseline hemoglobin 11- 12), ongoing tobacco abuse admitted with sepsis in the setting of pneumonia and cellulitis. Severe Sepsis Pneumonia, CAP vs. Aspiration WBC elevated >27K on admission, febrile, tachycardic with noted infectious source in lungs and lower extremities Hypotensive meets sepsis criteria Lactate was normal, procalcitonin elevated at 2.51 Chest XR with concerning opacity in lingula, chest CTA confirming LLL and lingula pneumonia, no PE. Also noted mediastinal lymphadenopathy possibly reactive, trace pleural effusions. Sputum Cx - negat. Blood Cx x 2 negat. in 48 hrs Continued with Flagyl, Cefepime and Doxycycline ordered -> because pt febrile - doxy changed to vanco by learning consultant - after discussing w/ ID -> currently abx changed to ceftriaxone and clinda added guaifenesin, flutter valve. pt reports cough improved. Pt continues to breath comfortably on RA, cough overall much improved/ resolved LLE Cellulitis Pt with bilateral lower extremity cellulitis Admits to injecting IV drugs into his lower extremities CT LLE noting cellulitis changes Consider MRI to definitely rule out osteomyelitis RLE Venous doppler with no signs of DVT Continue with Cefepime and vancomycin as noted above Blood cultx - negat. in 48 hrs Scrotum wound , and leg skin wound cultx - Group A strep wound care consulted ID consulted 07/04 Pt febrile last evening. WBC still elevated but pt feeling better and LLE less edematous and less erythematous. 2/ Afebrile, feeling better. WBC still elevated. LLE less erythematous and edematous. Pt reports he can't stand on it though. / ID consulted and discussed with - Patient presenting with malaise and productive cough with findings suggestive of PNA and cellulitis. The PNA may be from an aspiration event in the setting of recent overdose. He is currently receiving vanco, cefepime, and flagyl. Superficial cultures of his wounds are growing GAS and sputum cultures are only growing normal [facility]. GAS is an extremely virulent organism and thus given ongoing pain, redness and leukocytosis recommend MRI of the LLE to further evaluate 1. Recommend stopping vanc, cefepime, and flagyl 2. Start Ceftriaxone 2g daily and clindamycin 900 IV TID for antitoxin effect - antibiotics changed 3. MRI LLE 4. If he clinically worsens in any way would additionally recommend surgical evaluation for necrotizing fasciitis Final abx plans remain pending. MR DUTTON - IMPRESSION: 1. Cellulitis versus venous insufficiency. No abscess or necrotizing fasciitis. 2. No evidence of acute osteomyelitis. /3 -/ Pt improved. Edema and erythema improved and pt can stand up and walk to bathroom now. Afebrile. WBC elevated but down from previous. Iron Deficiency Anemia Pt with noted chronic anemia baseline hemoglobin 11-12, currently above 9 Noted microcytic Iron level <10, b12 appears oversupplemented, folate wnl IV Venofer ordered previously for iron supplementation Melena Reported in the ED Pt currently at baseline hgb On IV ppi GI was consulted on admission Recommending outpt followup Hyponatremia Pt with noted sodium of 126 on admission Received multiple fluid boluses in the ED Sodium slowly increasing, currently 134 Urine sodium <10, urine osm low at 272 monitor BMP Hypomagnesemia Replete and monitor UTI - ruled out UA was suggestive of infection Urine Cx negative IV Drug Use Pt admits to injecting into his lower extremities Notes recent fentanyl overdose On methadone chronically, follows with a methadone clinic. Recent d/c due to drug use. On bowel reigmen with senna, pr miralax Toxicology screen this admission positive for opiates, methadone, amphetamines, MDMA. Per admitting doc, pt's outpt methadone provider recommending daily 175 mg p.o. daily until discharge. (Split daily dosing of 87.5 mg p.o. twice daily also an option if patient pain not controlled with usual daily dosing as per provider) Pt currently declining spilt dosing. Echo with no evidence of vegetations suggestive of endocarditis at this time. Per CM, pt would like dual facility treatment/rehab on discharge (CM would like heads up on when stable for discharge to start the search/referral process) Chest Pain Pt presented with chest pain as well. hs-trop was wnl, EKG noted sinus tachycardia CT chest as noted above with pneumonia but no PE Echo with EF 60-65%, no valvular abnormalities and with no evidence of vegetations suggestive of endocarditis at this time Headache Pt with severe headache on admission Head CT with no acute abnormalities MRI was ordered but Pt DECLINED further evaluation with brain MRI stating that his headache has since gotten better and was likely related to his pain Again with AL and wanted to proceed w/ MRI - brain MRI negative Melena Reported in the ED GI was consulted on admission Recommending outpt followup Splenomegaly Noted incidentally on CT imaging HCV status post Mavyret Rx INR slightly elevated at 1.2 Stable otherwise mood disorder not on maintenance medications patient denies suicidality Diet: regular DVT prophylaxis: SCDs Re possible GI bleed Full code Dispo: Pt would like dual facility treatment/rehab on discharge (CM would like heads up on when stable for discharge to start the search/referral process) Admission and Anticipated Discharge Date Admission Date: July 02, 2023 Subjective Pt seen in follow up of sepsis, LLE cellulitis, pna, recent hx of fentanyl od, on methadone Still with elevated WBC but improved now and afebrile. feeling better - able to stand up and walk to bathroom. LLE less swollen and less erythematous. ID consulted and discussed with - antibiotics were changed to ceftriaxone and clindamycin No chest pain, shortness of breath or abd. pain. Review of Systems Review of Systems: All systems reviewed & are unremarkable except as noted in Subjective Physical Exam Physical Exam: General: WD/WN young M in NAD HEENT: NC/AT Chest: Nontender to palpation. CV: RRR, No murmurs appreciated Resp: Breath sounds clear bilaterally, no increased effort of breathing. Abdomen: Soft Neuro: awake alert, answers appropriately, no facial asymmetry, moves extremities Extremities: erythematous and edematous LLE (improved) with healing lesions noted Skin: erythematous lower extremities with healing lesions (improved) Results & Data Results & Data Vital Signs (Past 12 Hours) Vital Signs Temp Pulse Pulse Resp BP Pulse Ox O2 Del Method 07/08/23 07:16 68 07/08/23 03:54 36.9 C 74 18 114/62 96 Room Air 07/07/23 23:56 36.7 C 74 18 110/60 Room Air 07/07/23 23:14 73 Laboratory Results 07/08/23 07/07/23 07/07/23 Range/Units 05:49 07:49 07:48 WBC 15.60 H 16.81 H (4.8-10.8) K/ul RBC 3.20 L 3.36 L (4.70-6.10) M/uL Hgb 8.9 L 9.3 L (14.0-18.0) g/dl Hct 27.4 L 28.0 L (42.0-52.0) % MCV 85.6 83.3 (80.0-100.0) fL MCH 27.8 27.7 (25.0-34.0) pg MCHC 32.5 33.2 (32.0-36.0) g/dL RDW Std Deviation 45.2 43.1 (36.4-46.3) fL RDW Coeff of Randa 14.6 H 14.2 (11.5-14.5) % Plt Count 444 H 304 (130-400) K/uL MPV 8.8 L 9.5 (9.4-12.4) fL Absolute Nucleated RBC 0.03 (0.00-0.12) K/uL Nucleated RBC % (auto) 0.2 % Sodium 138 139 (136-145) mmol/L Potassium 3.3 L 3.0 L (3.5-5.1) mmol/L Chloride 102 101 (98-107) mmol/L Carbon Dioxide 31 31 (21-32) mmol/L Anion Gap 5 7 (3-11) BUN 7 5 L (6-23) mg/dl Creatinine 0.52 L 0.64 (0.6-1.4) mg/dl Est Cr Clr Drug Dosing 223.8 181.9 ml/min Est GFR ( Amer) > 150.0 > 150.0 ml/min Est GFR (Non-Af Amer) 141.1 129.6 ml/min BUN/Creatinine Ratio 13.5 7.8 L (10-20) Glucose 84 107 H (70-99(Fasting)) mg/dl Calcium 7.5 L 7.6 L (8.6-10.3) mg/dl Phosphorus 3.3 D 4.3 D (2.5-4.9) mg/dl Magnesium 1.7 1.8 (1.7-2.4) mg/dl U Codeine Confrm GC/MS (<50) ng/mL Ur Morphine (GC/MS) (<50) ng/mL Ur Hydrocodone (GC/MS) (<50) ng/mL Ur Norhydrocodone (<50) ng/mL Ur Noroxycodone (<50) ng/mL Urine Oxycodone (GC/MS) (<50) ng/mL U Oxymorphone GC/MS (<50) ng/mL U Methadone Metabolites (<100) ng/mL Ur Methadone Confirm (<100) ng/mL Ur Hydromorphone (GC/MS) (<50) ng/mL U Amphetamines Confirm (<250) ng/mL U Methamphetamin Confrm (<250) ng/mL Urine MDEA MDMA Urine MDMA Drug Screen Comment 07/02/23 Range/Units Unknown WBC (4.8-10.8) K/ul RBC (4.70-6.10) M/uL Hgb (14.0-18.0) g/dl Hct (42.0-52.0) % MCV (80.0-100.0) fL MCH (25.0-34.0) pg MCHC (32.0-36.0) g/dL RDW Std Deviation (36.4-46.3) fL RDW Coeff of Randa (11.5-14.5) % Plt Count (130-400) K/uL MPV (9.4-12.4) fL Absolute Nucleated RBC (0.00-0.12) K/uL Nucleated RBC % (auto) % Sodium (136-145) mmol/L Potassium (3.5-5.1) mmol/L Chloride (98-107) mmol/L Carbon Dioxide (21-32) mmol/L Anion Gap (3-11) BUN (6-23) mg/dl Creatinine (0.6-1.4) mg/dl Est Cr Clr Drug Dosing ml/min Est GFR ( Amer) ml/min Est GFR (Non-Af Amer) ml/min BUN/Creatinine Ratio (10-20) Glucose (70-99(Fasting)) mg/dl Calcium (8.6-10.3) mg/dl Phosphorus (2.5-4.9) mg/dl Magnesium (1.7-2.4) mg/dl U Codeine Confrm GC/MS NEGATIVE (<50) ng/mL Ur Morphine (GC/MS) 922 H (<50) ng/mL Ur Hydrocodone (GC/MS) NEGATIVE (<50) ng/mL Ur Norhydrocodone NEGATIVE (<50) ng/mL Ur Noroxycodone NEGATIVE (<50) ng/mL Urine Oxycodone (GC/MS) NEGATIVE (<50) ng/mL U Oxymorphone GC/MS NEGATIVE (<50) ng/mL U Methadone Metabolites 2570 H (<100) ng/mL Ur Methadone Confirm 940 H (<100) ng/mL Ur Hydromorphone (GC/MS) NEGATIVE (<50) ng/mL U Amphetamines Confirm >40615 H (<250) ng/mL U Methamphetamin Confrm >55682 H (<250) ng/mL Urine MDEA negative MDMA negative Urine MDMA negative Drug Screen Comment SEE NOTE Medications Administered Current Inpatient Medications Acetaminophen (Acetaminophen 325 Mg Tab) 325 mg PO Q6H PRN PRN Reason: fever/pain Stop: 08/01/23 19:35 Last Admin: 07/05/23 11:40 Dose: 325 mg Albuterol (Albuterol Hfa 8 Gm Inhaler) 2 puffs INH Q4H PRN PRN Reason: Shortness Of Breath Or Wheezin Stop: 08/05/23 22:29 Last Admin: 07/06/23 23:03 Dose: 2 puffs Guaifenesin (Guaifenesin 600 Mg Tabcr) 600 mg PO Q12 [facility] Stop: 08/03/23 08:59 Last Admin: 07/07/23 20:53 Dose: 600 mg Heparin Sodium (Porcine) (Heparin Sod 5,000 Unit/0.5 Ml Vial) 5,000 units SQ Q12 [facility] Stop: 08/03/23 20:59 Last Admin: 07/07/23 20:52 Dose: Not Given Cefepime HCl 2,000 mg/ Syringe 20 mls @ 5 mls/min IV Q8H [facility]; Protocol Stop: 07/10/23 03:59 Last Admin: 07/06/23 11:59 Dose: 5 mls/min Pantoprazole Sodium 40 mg/ (Syringe) 10 mls @ 5 mls/min IV BID [facility] Stop: 08/02/23 08:59 Last Admin: 07/07/23 20:52 Dose: 5 mls/min Sodium Chloride (Nss) 1,000 mls @ 100 mls/hr IV .Q10H [facility] Stop: 08/03/23 16:29 Last Admin: 07/08/23 05:52 Dose: 100 mls/hr Vancomycin HCl 1,750 mg/ (Sodium Chloride) 535 mls @ 200 mls/hr IV Q8H [facility] Stop: 07/11/23 11:59 Last Infusion: 07/06/23 14:49 Dose: Infused Ceftriaxone Sodium 2,000 mg/ (Dextrose) 50 mls @ 100 mls/hr IV Q24H [facility]; Protocol Stop: 07/13/23 19:59 Last Infusion: 07/07/23 21:26 Dose: Infused Clindamycin Phosphate (Cleocin/D5w) 900 mg in 50 mls @ 100 mls/hr IV Q8H [facility] Stop: 07/08/23 15:59 Last Infusion: 07/08/23 01:12 Dose: Infused Lactobacillus Acidophilus (Advanced Probiotic 1250 Mg Capsule) 2 cap PO DAILY [facility] Stop: 08/03/23 08:59 Last Admin: 07/07/23 08:26 Dose: 2 cap Magnesium Oxide (Magnesium Oxide 400 Mg Tab) 400 mg PO BID [facility] Stop: 08/03/23 13:59 Last Admin: 07/07/23 20:52 Dose: 400 mg Methadone HCl (Methadone Oral Soln 2 Mg/Ml) 175 mg PO Q24H [facility] Stop: 07/20/23 05:59 Last Admin: 07/08/23 05:52 Dose: 175 mg Miscellaneous Information (Vancomycin Consult Active) 1 each N/A UD PRN PRN Reason: Consult Stop: 08/03/23 07:05 Non-Formulary Medication (Patient's Own Controlled Med 1) 1 each PO Q24H [facility] Stop: 07/19/23 05:59 Last Admin: 07/08/23 05:52 Dose: Not Given Oxycodone HCl (Oxycodone Hcl Ir 5 Mg Tab (Immediate Release)) 5 mg PO Q6H PRN PRN Reason: Pain Stop: 07/17/23 02:11 Last Admin: 07/07/23 20:56 Dose: 5 mg Polyethylene Glycol (Polyethylene (Miralax) 17 Gm Pack) 17 gm PO DAILY [facility] Stop: 08/03/23 08:59 Last Admin: 07/07/23 08:25 Dose: Not Given Potassium Phosphate (Pot Phosphate Monobasic W/ Sod Tab) 1 tab PO QID [facility] Stop: 08/04/23 08:59 Last Admin: 07/07/23 08:26 Dose: 1 tab Senna/Docusate Sodium (Docusate Sodium/Senna 50/8.6mg Tab) 1 tab PO BID [facility] Stop: 08/02/23 08:59 Last Admin: 07/07/23 20:52 Dose: Not Given Sennosides (Senna 8.6 Mg Tab) 8.6 mg PO QAM [facility] Stop: 08/06/23 14:29 Last Admin: 07/07/23 16:18 Dose: 8.6 mg
[2023-07-08] MEDS: POTASSIUM CHLORIDE CRTAB 20 MEQ TABCR PO STA (08:39)
[2023-07-09] MEDS: HYDROmorphone INJ 0.5 MG/0.5 ML SYR IV STA (00:12)
[2023-07-09 06:35] LABS: Hematocrit (blood only) 26.2 % (42.0-52.0); Hemoglobin 8.7 g/dl (14.0-18.0); Mean Corpuscular Hemoglobin 27.9 pg (25.0-34.0); Mean Corpuscular Hgb Conc 33.2 g/dL (32.0-36.0); Mean Platelet Volume 9.7 fL (9.4-12.4); Platelet Count 359 K/uL (130-400); RDW Coefficient of Variation 14.6 % (11.5-14.5); RDW Standard Deviation 44.7 fL (36.4-46.3); Red Blood Count 3.12 M/uL (4.70-6.10); White Blood Count 15.25 K/ul (4.8-10.8)
[2023-07-09 07:11] LABS: Anion Gap 6 (3-11); BUN Creatinine Ratio 11.3 (10-20); Blood Urea Nitrogen 7 mg/dl (6-23); Calcium 7.6 mg/dl (8.6-10.3); Carbon Dioxide 29 mmol/L (21-32); Chloride 102 mmol/L (98-107); Creatinine Clr Calc Pharmacy 187.7 ml/min; Est GFR (African American) > 150.0 ml/min; Est GFR (Non-African American) 131.3 ml/min; Glucose 88 mg/dl (70-99(Fasting)); Magnesium 1.8 mg/dl (1.7-2.4); Phosphorus 3.4 mg/dl (2.5-4.9); Potassium 3.7 mmol/L (3.5-5.1); Sodium 137 mmol/L (136-145)
[2023-07-09] MEDS: CLINDAMYCIN/D5W 900 MG/50 ML PREMIX BAG IV SCH (08:42)
[2023-07-09] MEDS: METHADONE HCL 10 MG TAB PO ONE (10:00)
--- NOTE | 2023-07-09 11:26 | Hospitalist Progress Note ---
Date of Service July 09, 2023 Assessment & Plan (1) Sepsis: Plan Pt is a 32yoM with PMHx significant for chronic pain on methadone, HCV status post Mavyret Rx, GERD, mood disorder, chronic anemia (baseline hemoglobin 11- 12), ongoing tobacco abuse admitted with sepsis in the setting of pneumonia and cellulitis. Severe Sepsis Pneumonia, CAP vs. Aspiration WBC elevated >27K on admission, febrile, tachycardic with noted infectious source in lungs and lower extremities Hypotensive meets sepsis criteria Lactate was normal, procalcitonin elevated at 2.51 Chest XR with concerning opacity in lingula, chest CTA confirming LLL and lingula pneumonia, no PE. Also noted mediastinal lymphadenopathy possibly reactive, trace pleural effusions. Sputum Cx - negat. Blood Cx x 2 negat. 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 pt reports cough improved. Pt continues to breath comfortably on RA, cough overall much improved/ resolved LLE Cellulitis Pt with bilateral lower extremity cellulitis Admits to injecting IV drugs into his lower extremities CT LLE noting cellulitis changes Consider MRI to definitely rule out osteomyelitis RLE Venous doppler with no signs of DVT Continue with Cefepime and vancomycin as noted above Blood cultx - negat. in 48 hrs Scrotum wound , and leg skin wound cultx - Group A strep wound care consulted ID consulted 07/04 Pt febrile last evening. WBC still elevated but pt feeling better and LLE less edematous and less erythematous. 2/ Afebrile, feeling better. WBC still elevated. LLE less erythematous and edematous. Pt reports he can't stand on it though. / ID consulted and discussed with - Patient presenting with malaise and productive cough with findings suggestive of PNA and cellulitis. The PNA may be from an aspiration event in the setting of recent overdose. He is currently receiving vanco, cefepime, and flagyl. Superficial cultures of his wounds are growing GAS and sputum cultures are only growing normal [facility]. GAS is an extremely virulent organism and thus given ongoing pain, redness and leukocytosis recommend MRI of the LLE to further evaluate 1. Recommend stopping vanc, cefepime, and flagyl 2. Start Ceftriaxone 2g daily and clindamycin 900 IV TID for antitoxin effect - antibiotics changed 3. MRI LLE 4. If he clinically worsens in any way would additionally recommend surgical evaluation for necrotizing fasciitis Final abx plans remain pending. MR DUTTON - IMPRESSION: 1. Cellulitis versus venous insufficiency. No abscess or necrotizing fasciitis. 2. No evidence of acute osteomyelitis. 07/07 -07/09 Pt improved. Edema and erythema improved and pt can stand up and walk to bathroom now. Afebrile. WBC elevated but down from previous. Discussed w/ ID , plan to DC on po keflex once stable to DC to rehab. Iron Deficiency Anemia Pt with noted chronic anemia baseline hemoglobin 11-12, currently above 9 Noted microcytic Iron level <10, b12 appears oversupplemented, folate wnl IV Venofer ordered previously for iron supplementation Melena Reported in the ED Pt currently at baseline hgb On IV ppi GI was consulted on admission Recommending outpt followup Hyponatremia Pt with noted sodium of 126 on admission Received multiple fluid boluses in the ED Sodium slowly increasing, currently 134 Urine sodium <10, urine osm low at 272 monitor BMP Hypomagnesemia Replete and monitor UTI - ruled out UA was suggestive of infection Urine Cx negative IV Drug Use Pt admits to injecting into his lower extremities Notes recent fentanyl overdose On methadone chronically, follows with a methadone clinic. Recent d/c due to drug use. On bowel reigmen with senna, pr miralax Toxicology screen this admission positive for opiates, methadone, amphetamines, MDMA. Per admitting doc, pt's outpt methadone provider recommending daily 175 mg p.o. daily until discharge. (Split daily dosing of 87.5 mg p.o. twice daily also an option if patient pain not controlled with usual daily dosing as per provider) Pt currently declining spilt dosing. Echo with no evidence of vegetations suggestive of endocarditis at this time. Per CM, pt would like dual facility treatment/rehab on discharge (CM would like heads up on when stable for discharge to start the search/referral process) Chest Pain Pt presented with chest pain as well. hs-trop was wnl, EKG noted sinus tachycardia CT chest as noted above with pneumonia but no PE Echo with EF 60-65%, no valvular abnormalities and with no evidence of vegetations suggestive of endocarditis at this time Headache Pt with severe headache on admission Head CT with no acute abnormalities MRI was ordered but Pt DECLINED further evaluation with brain MRI stating that his headache has since gotten better and was likely related to his pain Again with AL and wanted to proceed w/ MRI - brain MRI negative Melena Reported in the ED GI was consulted on admission Recommending outpt followup Splenomegaly Noted incidentally on CT imaging HCV status post Mavyret Rx INR slightly elevated at 1.2 Stable otherwise mood disorder not on maintenance medications patient denies suicidality Diet: regular DVT prophylaxis: SCDs Re possible GI bleed Full code Dispo: Pt would like dual facility treatment/rehab on discharge (CM would like heads up on when stable for discharge to start the search/referral process) Admission and Anticipated Discharge Date Admission Date: July 02, 2023 Subjective Pt seen in follow up of sepsis, LLE cellulitis, pna, recent hx of fentanyl od, on methadone Still with elevated WBC but improved now and afebrile. feeling better - able to stand up and walk to bathroom. LLE less swollen and less erythematous. ID consulted and discussed with - antibiotics were changed to ceftriaxone and clindamycin, plan to switch to po keflex once stable for DC to rehab No chest pain, shortness of breath or abd. pain. Review of Systems Review of Systems: All systems reviewed & are unremarkable except as noted in Subjective Physical Exam Physical Exam: General: WD/WN young M in NAD HEENT: NC/AT Chest: Nontender to palpation. CV: RRR, No murmurs appreciated Resp: Breath sounds clear bilaterally, no increased effort of breathing. Abdomen: Soft Neuro: awake alert, answers appropriately, no facial asymmetry, moves e xtremities Extremities: erythematous and edematous LLE (improved) with healing lesions noted Skin: erythematous lower extremities with healing lesions (improved) Results & Data Results & Data Vital Signs (Past 12 Hours) Vital Signs Temp Pulse Pulse Resp BP BP Pulse Ox 07/09/23 11:22 37.0 C 78 16 125/69 99 07/09/23 07:47 77 07/09/23 07:33 37.3 C 75 16 143/70 H 93 07/09/23 03:07 36.9 C 72 16 121/65 94 O2 Del Method 07/09/23 11:22 Room Air 07/09/23 07:47 07/09/23 07:33 Room Air 07/09/23 03:07 Room Air Laboratory Results 07/09/23 Range/Units 05:25 WBC 15.25 H (4.8-10.8) K/ul RBC 3.12 L (4.70-6.10) M/uL Hgb 8.7 L (14.0-18.0) g/dl Hct 26.2 L (42.0-52.0) % MCV 84.0 (80.0-100.0) fL MCH 27.9 (25.0-34.0) pg MCHC 33.2 (32.0-36.0) g/dL RDW Std Deviation 44.7 (36.4-46.3) fL RDW Coeff of Randa 14.6 H (11.5-14.5) % Plt Count 359 (130-400) K/uL MPV 9.7 (9.4-12.4) fL Sodium 137 (136-145) mmol/L Potassium 3.7 (3.5-5.1) mmol/L Chloride 102 (98-107) mmol/L Carbon Dioxide 29 (21-32) mmol/L Anion Gap 6 (3-11) BUN 7 (6-23) mg/dl Creatinine 0.62 (0.6-1.4) mg/dl Est Cr Clr Drug Dosing 187.7 ml/min Est GFR ( Amer) > 150.0 ml/min Est GFR (Non-Af Amer) 131.3 ml/min BUN/Creatinine Ratio 11.3 (10-20) Glucose 88 (70-99(Fasting)) mg/dl Calcium 7.6 L (8.6-10.3) mg/dl Phosphorus 3.4 (2.5-4.9) mg/dl Magnesium 1.8 (1.7-2.4) mg/dl Medications Administered Current Inpatient Medications Acetaminophen (Acetaminophen 325 Mg Tab) 325 mg PO Q6H PRN PRN Reason: fever/pain Stop: 08/01/23 19:35 Last Admin: 07/05/23 11:40 Dose: 325 mg Albuterol (Albuterol Hfa 8 Gm Inhaler) 2 puffs INH Q4H PRN PRN Reason: Shortness Of Breath Or Wheezin Stop: 08/05/23 22:29 Last Admin: 07/06/23 23:03 Dose: 2 puffs Guaifenesin (Guaifenesin 600 Mg Tabcr) 600 mg PO Q12 [facility] Stop: 08/03/23 08:59 Last Admin: 07/09/23 08:39 Dose: 600 mg Heparin Sodium (Porcine) (Heparin Sod 5,000 Unit/0.5 Ml Vial) 5,000 units SQ Q12 [facility] Stop: 08/03/23 20:59 Last Admin: 07/09/23 10:02 Dose: Not Given Cefepime HCl 2,000 mg/ Syringe 20 mls @ 5 mls/min IV Q8H [facility]; Protocol Stop: 07/10/23 03:59 Last Admin: 07/06/23 11:59 Dose: 5 mls/min Pantoprazole Sodium 40 mg/ (Syringe) 10 mls @ 5 mls/min IV BID [facility] Stop: 08/02/23 08:59 Last Admin: 07/09/23 08:39 Dose: 5 mls/min Vancomycin HCl 1,750 mg/ (Sodium Chloride) 535 mls @ 200 mls/hr IV Q8H [facility] Stop: 07/11/23 11:59 Last Infusion: 07/06/23 14:49 Dose: Infused Ceftriaxone Sodium 2,000 mg/ (Dextrose) 50 mls @ 100 mls/hr IV Q24H [facility]; Protocol Stop: 07/13/23 19:59 Last Infusion: 07/08/23 21:14 Dose: Infused Clindamycin Phosphate (Cleocin/D5w) 900 mg in 50 mls @ 100 mls/hr IV Q8H [facility] Stop: 07/13/23 07:59 Last Infusion: 07/09/23 09:12 Dose: Infused Lactobacillus Acidophilus (Advanced Probiotic 1250 Mg Capsule) 2 cap PO DAILY [facility] Stop: 08/03/23 08:59 Last Admin: 07/09/23 08:39 Dose: 2 cap Magnesium Oxide (Magnesium Oxide 400 Mg Tab) 400 mg PO BID [facility] Stop: 08/03/23 13:59 Last Admin: 07/09/23 08:39 Dose: 400 mg Methadone HCl (Methadone Oral Soln 2 Mg/Ml) 175 mg PO Q24H [facility] Stop: 07/20/23 05:59 Last Admin: 07/08/23 05:52 Dose: 175 mg Miscellaneous Information (Vancomycin Consult Active) 1 each N/A UD PRN PRN Reason: Consult Stop: 08/03/23 07:05 Non-Formulary Medication (Patient's Own Controlled Med 1) 1 each PO Q24H [facility] Stop: 07/19/23 05:59 Last Admin: 07/08/23 05:52 Dose: Not Given Oxycodone HCl (Oxycodone Hcl Ir 5 Mg Tab (Immediate Release)) 5 mg PO Q6H PRN PRN Reason: Pain Stop: 07/17/23 02:11 Last Admin: 07/09/23 06:17 Dose: 5 mg Polyethylene Glycol (Polyethylene (Miralax) 17 Gm Pack) 17 gm PO DAILY [facility] Stop: 08/03/23 08:59 Last Admin: 07/09/23 10:02 Dose: Not Given Potassium Phosphate (Pot Phosphate Monobasic W/ Sod Tab) 1 tab PO QID [facility] Stop: 08/04/23 08:59 Last Admin: 07/07/23 08:26 Dose: 1 tab Senna/Docusate Sodium (Docusate Sodium/Senna 50/8.6mg Tab) 1 tab PO BID [facility] Stop: 08/02/23 08:59 Last Admin: 07/09/23 10:01 Dose: Not Given Sennosides (Senna 8.6 Mg Tab) 8.6 mg PO QAM [facility] Stop: 08/06/23 14:29 Last Admin: 07/09/23 10:02 Dose: Not Given
[2023-07-10 07:33] LABS: Hematocrit (blood only) 27.3 % (42.0-52.0); Hemoglobin 9.1 g/dl (14.0-18.0); Mean Corpuscular Hemoglobin 27.7 pg (25.0-34.0); Mean Corpuscular Hgb Conc 33.3 g/dL (32.0-36.0); Mean Corpuscular Volume 83.2 fL (80.0-100.0); Mean Platelet Volume 8.2 fL (9.4-12.4); Platelet Count 427 K/uL (130-400); RDW Coefficient of Variation 15.1 % (11.5-14.5); RDW Standard Deviation 45.5 fL (36.4-46.3); Red Blood Count 3.28 M/uL (4.70-6.10); White Blood Count 11.83 K/ul (4.8-10.8)
[2023-07-10 07:49] LABS: Anion Gap 3 (3-11); BUN Creatinine Ratio 12.1 (10-20); Blood Urea Nitrogen 7 mg/dl (6-23); Carbon Dioxide 31 mmol/L (21-32); Chloride 102 mmol/L (98-107); Creatinine Clr Calc Pharmacy 200.7 ml/min; Est GFR (African American) > 150.0 ml/min; Est GFR (Non-African American) 134.9 ml/min; Glucose 109 mg/dl (70-99(Fasting)); Phosphorus 4.1 mg/dl (2.5-4.9); Potassium 4.2 mmol/L (3.5-5.1); Sodium 136 mmol/L (136-145)
--- NOTE | 2023-07-10 09:33 | Hospitalist Progress Note ---
Date of Service July 10, 2023 Assessment & Plan (1) Sepsis: Plan Pt is a 32yoM with PMHx significant for chronic pain on methadone, HCV status post Mavyret Rx, GERD, mood disorder, chronic anemia (baseline hemoglobin 11- 12), ongoing tobacco abuse admitted with sepsis in the setting of pneumonia and cellulitis. Severe Sepsis Pneumonia, CAP vs. Aspiration WBC elevated >27K on admission, febrile, tachycardic with noted infectious source in lungs and lower extremities Hypotensive meets sepsis criteria Lactate was normal, procalcitonin elevated at 2.51 Chest XR with concerning opacity in lingula, chest CTA confirming LLL and lingula pneumonia, no PE. Also noted mediastinal lymphadenopathy possibly reactive, trace pleural effusions. Sputum Cx - negat. Blood Cx x 2 negat. 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 pt reports cough improved. Pt continues to breath comfortably on RA, cough overall much improved/ resolved LLE Cellulitis Pt with bilateral lower extremity cellulitis Admits to injecting IV drugs into his lower extremities CT LLE noting cellulitis changes Consider MRI to definitely rule out osteomyelitis RLE Venous doppler with no signs of DVT Continue with Cefepime and vancomycin as noted above Blood cultx - negat. in 48 hrs Scrotum wound , and leg skin wound cultx - Group A strep wound care consulted ID consulted 07/04 Pt febrile last evening. WBC still elevated but pt feeling better and LLE less edematous and less erythematous. 2/ Afebrile, feeling better. WBC still elevated. LLE less erythematous and edematous. Pt reports he can't stand on it though. / ID consulted and discussed with - Patient presenting with malaise and productive cough with findings suggestive of PNA and cellulitis. The PNA may be from an aspiration event in the setting of recent overdose. He is currently receiving vanco, cefepime, and flagyl. Superficial cultures of his wounds are growing GAS and sputum cultures are only growing normal [facility]. GAS is an extremely virulent organism and thus given ongoing pain, redness and leukocytosis recommend MRI of the LLE to further evaluate 1. Recommend stopping vanc, cefepime, and flagyl 2. Start Ceftriaxone 2g daily and clindamycin 900 IV TID for antitoxin effect - antibiotics changed 3. MRI LLE 4. If he clinically worsens in any way would additionally recommend surgical evaluation for necrotizing fasciitis Final abx plans remain pending. MR DUTTON - IMPRESSION: 1. Cellulitis versus venous insufficiency. No abscess or necrotizing fasciitis. 2. No evidence of acute osteomyelitis. 07/07 -07/10 Pt improved. Edema and erythema improved and pt can stand up and walk to bathroom now. However still with significant pain in his foot when walking. Afebrile. WBC trending down. Discussed w/ ID , plan to DC on po keflex once stable to DC to rehab. Iron Deficiency Anemia Pt with noted chronic anemia baseline hemoglobin 11-12, currently above 9 Noted microcytic Iron level <10, b12 appears oversupplemented, folate wnl IV Venofer ordered previously for iron supplementation Melena Reported in the ED Pt currently at baseline hgb On IV ppi GI was consulted on admission Recommending outpt followup Hyponatremia Pt with noted sodium of 126 on admission Received multiple fluid boluses in the ED Sodium slowly increasing, currently 134 Urine sodium <10, urine osm low at 272 monitor BMP Hypomagnesemia Replete and monitor UTI - ruled out UA was suggestive of infection Urine Cx negative IV Drug Use Pt admits to injecting into his lower extremities Notes recent fentanyl overdose On methadone chronically, follows with a methadone clinic. Recent d/c due to drug use. On bowel reigmen with senna, pr miralax Toxicology screen this admission positive for opiates, methadone, amphetamines, MDMA. Per admitting doc, pt's outpt methadone provider recommending daily 175 mg p.o. daily until discharge. (Split daily dosing of 87.5 mg p.o. twice daily also an option if patient pain not controlled with usual daily dosing as per provider) Pt currently declining spilt dosing. Echo with no evidence of vegetations suggestive of endocarditis at this time. Per CM, pt would like dual facility treatment/rehab on discharge (CM would like heads up on when stable for discharge to start the search/referral process) Chest Pain Pt presented with chest pain as well. hs-trop was wnl, EKG noted sinus tachycardia CT chest as noted above with pneumonia but no PE Echo with EF 60-65%, no valvular abnormalities and with no evidence of vegetations suggestive of endocarditis at this time Headache Pt with severe headache on admission Head CT with no acute abnormalities MRI was ordered but Pt DECLINED further evaluation with brain MRI stating that his headache has since gotten better and was likely related to his pain Again with AL and wanted to proceed w/ MRI - brain MRI negative Melena Reported in the ED GI was consulted on admission Recommending outpt followup Splenomegaly Noted incidentally on CT imaging HCV status post Mavyret Rx INR slightly elevated at 1.2 Stable otherwise mood disorder not on maintenance medications patient denies suicidality Diet: regular DVT prophylaxis: SCDs Re possible GI bleed Full code Dispo: Pt would like dual facility treatment/rehab on discharge (CM would like heads up on when stable for discharge to start the search/referral process) Admission and Anticipated Discharge Date Admission Date: July 02, 2023 Subjective Pt seen in follow up of sepsis, LLE cellulitis, pna, recent hx of fentanyl od, on methadone WBC decreased now and pt afebrile. feeling better - able to stand up and walk to bathroom, even though still with a lot of pain in his foot when walking. LLE less swollen and less erythematous. ID consulted and discussed with - antibiotics were changed to ceftriaxone and c lindamycin, plan to switch to po keflex once stable for DC to rehab No chest pain, shortness of breath or abd. pain. Review of Systems Review of Systems: All systems reviewed & are unremarkable except as noted in Subjective Physical Exam Physical Exam: General: WD/WN young M in NAD HEENT: NC/AT Chest: Nontender to palpation. CV: RRR, No murmurs appreciated Resp: Breath sounds clear bilaterally, no increased effort of breathing. Abdomen: Soft Neuro: awake alert, answers appropriately, no facial asymmetry, moves extremities Extremities: erythematous and edematous LLE (much improved) with healing lesions noted Skin: erythematous lower extremities with healing lesions (much improved) Results & Data Results & Data Vital Signs (Past 12 Hours) Vital Signs Temp Pulse Pulse Resp BP BP Pulse Ox 07/10/23 07:48 37.0 C 60 16 115/66 94 07/10/23 07:26 60 07/10/23 03:00 37.0 C 65 16 111/61 94 07/09/23 23:03 36.9 C 76 18 112/68 97 07/09/23 23:03 78 O2 Del Method 07/10/23 07:48 Room Air 07/10/23 07:26 07/10/23 03:00 Room Air 07/09/23 23:03 Room Air 07/09/23 23:03 Laboratory Results 07/10/23 Range/Units 07:12 WBC 11.83 H (4.8-10.8) K/ul RBC 3.28 L (4.70-6.10) M/uL Hgb 9.1 L (14.0-18.0) g/dl Hct 27.3 L (42.0-52.0) % MCV 83.2 (80.0-100.0) fL MCH 27.7 (25.0-34.0) pg MCHC 33.3 (32.0-36.0) g/dL RDW Std Deviation 45.5 (36.4-46.3) fL RDW Coeff of Randa 15.1 H (11.5-14.5) % Plt Count 427 H (130-400) K/uL MPV 8.2 L (9.4-12.4) fL Sodium 136 (136-145) mmol/L Potassium 4.2 (3.5-5.1) mmol/L Chloride 102 (98-107) mmol/L Carbon Dioxide 31 (21-32) mmol/L Anion Gap 3 (3-11) BUN 7 (6-23) mg/dl Creatinine 0.58 L (0.6-1.4) mg/dl Est Cr Clr Drug Dosing 200.7 ml/min Est GFR ( Amer) > 150.0 ml/min Est GFR (Non-Af Amer) 134.9 ml/min BUN/Creatinine Ratio 12.1 (10-20) Glucose 109 H (70-99(Fasting)) mg/dl Calcium 8.0 L (8.6-10.3) mg/dl Phosphorus 4.1 (2.5-4.9) mg/dl Magnesium 2.0 (1.7-2.4) mg/dl Medications Administered Current Inpatient Medications Acetaminophen (Acetaminophen 325 Mg Tab) 325 mg PO Q6H PRN PRN Reason: fever/pain Stop: 08/01/23 19:35 Last Admin: 07/05/23 11:40 Dose: 325 mg Albuterol (Albuterol Hfa 8 Gm Inhaler) 2 puffs INH Q4H PRN PRN Reason: Shortness Of Breath Or Wheezin Stop: 08/05/23 22:29 Last Admin: 07/06/23 23:03 Dose: 2 puffs Guaifenesin (Guaifenesin 600 Mg Tabcr) 600 mg PO Q12 [facility] Stop: 08/03/23 08:59 Last Admin: 07/10/23 08:29 Dose: 600 mg Heparin Sodium (Porcine) (Heparin Sod 5,000 Unit/0.5 Ml Vial) 5,000 units SQ Q12 [facility] Stop: 08/03/23 20:59 Last Admin: 07/10/23 08:30 Dose: Not Given Pantoprazole Sodium 40 mg/ (Syringe) 10 mls @ 5 mls/min IV BID [facility] Stop: 08/02/23 08:59 Last Admin: 07/10/23 08:29 Dose: 5 mls/min Ceftriaxone Sodium 2,000 mg/ (Dextrose) 50 mls @ 100 mls/hr IV Q24H [facility]; Protocol Stop: 07/13/23 19:59 Last Infusion: 07/09/23 21:28 Dose: Infused Clindamycin Phosphate (Cleocin/D5w) 900 mg in 50 mls @ 100 mls/hr IV Q8H [facility] Stop: 07/13/23 07:59 Last Admin: 07/10/23 08:28 Dose: 100 mls/hr Lactobacillus Acidophilus (Advanced Probiotic 1250 Mg Capsule) 2 cap PO DAILY [facility] Stop: 08/03/23 08:59 Last Admin: 07/10/23 08:29 Dose: 2 cap Magnesium Oxide (Magnesium Oxide 400 Mg Tab) 400 mg PO BID [facility] Stop: 08/03/23 13:59 Last Admin: 07/10/23 08:29 Dose: 400 mg Methadone HCl (Methadone Oral Soln 2 Mg/Ml) 175 mg PO Q24H [facility] Stop: 07/20/23 05:59 Last Admin: 07/10/23 05:42 Dose: 175 mg Non-Formulary Medication (Patient's Own Controlled Med 1) 1 each PO Q24H [facility] Stop: 07/19/23 05:59 Last Admin: 07/10/23 05:42 Dose: Not Given Oxycodone HCl (Oxycodone Hcl Ir 5 Mg Tab (Immediate Release)) 5 mg PO Q6H PRN PRN Reason: Pain Stop: 07/17/23 02:11 Last Admin: 07/10/23 08:58 Dose: 5 mg Polyethylene Glycol (Polyethylene (Miralax) 17 Gm Pack) 17 gm PO DAILY [facility] Stop: 08/03/23 08:59 Last Admin: 07/10/23 08:30 Dose: Not Given Potassium Phosphate (Pot Phosphate Monobasic W/ Sod Tab) 1 tab PO QID [facility] Stop: 08/04/23 08:59 Last Admin: 07/07/23 08:26 Dose: 1 tab Senna/Docusate Sodium (Docusate Sodium/Senna 50/8.6mg Tab) 1 tab PO BID [facility] Stop: 08/02/23 08:59 Last Admin: 07/10/23 08:30 Dose: Not Given Sennosides (Senna 8.6 Mg Tab) 8.6 mg PO QAM [facility] Stop: 08/06/23 14:29 Last Admin: 07/10/23 08:30 Dose: Not Given
[2023-07-11 06:52] LABS: Hematocrit (blood only) 32.8 % (42.0-52.0); Hemoglobin 10.7 g/dl (14.0-18.0); Mean Corpuscular Hemoglobin 27.8 pg (25.0-34.0); Mean Corpuscular Hgb Conc 32.6 g/dL (32.0-36.0); Mean Corpuscular Volume 85.2 fL (80.0-100.0); Mean Platelet Volume 9.9 fL (9.4-12.4); Platelet Count 375 K/uL (130-400); RDW Coefficient of Variation 15.4 % (11.5-14.5); RDW Standard Deviation 47.6 fL (36.4-46.3); Red Blood Count 3.85 M/uL (4.70-6.10); White Blood Count 9.44 K/ul (4.8-10.8)
[2023-07-11 07:02] LABS: Calcium 8.4 mg/dl (8.6-10.3); Magnesium 2.1 mg/dl (1.7-2.4); Potassium 4.6 mmol/L (3.5-5.1)
[2023-07-11 07:08] LABS: BUN Creatinine Ratio 15.4 (10-20); Creatinine Clr Calc Pharmacy 179.1 ml/min; Est GFR (African American) 149.2 ml/min; Est GFR (Non-African American) 128.7 ml/min; Phosphorus 4.2 mg/dl (2.5-4.9)
[2023-07-11] MEDS ORDERED: ACETAMINOPHEN 325 MG TAB PO PRN (15:01)
--- NOTE | 2023-07-11 15:24 | Hospitalist Progress Note ---
Date of Service July 11, 2023 Assessment & Plan (1) Sepsis: Plan Pt is a 32yoM with PMHx significant for chronic pain on methadone, HCV status post Mavyret Rx, GERD, mood disorder, chronic anemia (baseline hemoglobin 11- 12), ongoing tobacco abuse admitted with sepsis in the setting of pneumonia and cellulitis. Severe Sepsis Pneumonia, CAP vs. Aspiration WBC elevated >27K on admission, febrile, tachycardic with noted infectious source in lungs and lower extremities Hypotensive meets sepsis criteria Lactate was normal, procalcitonin elevated at 2.51 Chest XR with concerning opacity in lingula, chest CTA confirming LLL and lingula pneumonia, no PE. Also noted mediastinal lymphadenopathy possibly reactive, trace pleural effusions. Sputum Cx - negat. Blood Cx x 2 negat. in 48 hrs Continued with Flagyl, Cefepime and Doxycycline ordered -> because pt febrile - doxy changed to vanco by student admissions clerk - after discussing w/ ID -> currently abx changed to ceftriaxone and clinda added guaifenesin, flutter valve. pt reports cough improved. Pt continues to breath comfortably on RA, cough overall much improved/ resolved LLE Cellulitis Pt with bilateral lower extremity cellulitis Admits to injecting IV drugs into his lower extremities CT LLE noting cellulitis changes Consider MRI to definitely rule out osteomyelitis RLE Venous doppler with no signs of DVT Continue with Cefepime and vancomycin as noted above Blood cultx - negat. in 48 hrs Scrotum wound , and leg skin wound cultx - Group A strep wound care consulted ID consulted 07/04 Pt febrile last evening. WBC still elevated but pt feeling better and LLE less edematous and less erythematous. 2/ Afebrile, feeling better. WBC still elevated. LLE less erythematous and edematous. Pt reports he can't stand on it though. / ID consulted and discussed with - Patient presenting with malaise and productive cough with findings suggestive of PNA and cellulitis. The PNA may be from an aspiration event in the setting of recent overdose. He is currently receiving vanco, cefepime, and flagyl. Superficial cultures of his wounds are growing GAS and sputum cultures are only growing normal [facility]. GAS is an extremely virulent organism and thus given ongoing pain, redness and leukocytosis recommend MRI of the LLE to further evaluate 1. Recommend stopping vanc, cefepime, and flagyl 2. Start Ceftriaxone 2g daily and clindamycin 900 IV TID for antitoxin effect - antibiotics changed 3. MRI LLE 4. If he clinically worsens in any way would additionally recommend surgical evaluation for necrotizing fasciitis Final abx plans remain pending. MR MARIJA - IMPRESSION: 1. Cellulitis versus venous insufficiency. No abscess or necrotizing fasciitis. 2. No evidence of acute osteomyelitis. 07/07 -07/10 Pt improved. Edema and erythema improved and pt can stand up and walk to bathroom now. However still with significant pain in his foot when walking. Afebrile. WBC trending down. Discussed w/ ID , plan to DC on po keflex once stable to DC to rehab. Iron Deficiency Anemia Pt with noted chronic anemia baseline hemoglobin 11-12, currently above 9 Noted microcytic Iron level <10, b12 appears oversupplemented, folate wnl IV Venofer ordered previously for iron supplementation Melena Reported in the ED Pt currently at baseline hgb On IV ppi GI was consulted on admission Recommending outpt followup Hyponatremia Pt with noted sodium of 126 on admission Received multiple fluid boluses in the ED Sodium slowly increasing, currently 134 Urine sodium <10, urine osm low at 272 monitor BMP Hypomagnesemia Replete and monitor UTI - ruled out UA was suggestive of infection Urine Cx negative IV Drug Use Pt admits to injecting into his lower extremities Notes recent fentanyl overdose On methadone chronically, follows with a methadone clinic. Recent d/c due to drug use. On bowel reigmen with senna, pr miralax Toxicology screen this admission positive for opiates, methadone, amphetamines, MDMA. Per admitting doc, pt's outpt methadone provider recommending daily 175 mg p.o. daily until discharge. His outpt dose is 208, consider to increase on DC. (Split daily dosing of 87.5 mg p.o. twice daily also an option if patient pain not controlled with usual daily dosing as per provider) Pt currently declining spilt dosing. Echo with no evidence of vegetations suggestive of endocarditis at this time. Per CM, pt would like dual facility treatment/rehab on discharge (CM would like heads up on when stable for discharge to start the search/referral process) Chest Pain Pt presented with chest pain as well. hs-trop was wnl, EKG noted sinus tachycardia CT chest as noted above with pneumonia but no PE Echo with EF 60-65%, no valvular abnormalities and with no evidence of vegetations suggestive of endocarditis at this time Headache Pt with severe headache on admission Head CT with no acute abnormalities MRI was ordered but Pt DECLINED further evaluation with brain MRI stating that his headache has since gotten better and was likely related to his pain Again with AL and wanted to proceed w/ MRI - brain MRI negative Melena Reported in the ED GI was consulted on admission Recommending outpt followup Splenomegaly Noted incidentally on CT imaging HCV status post Mavyret Rx INR slightly elevated at 1.2 Stable otherwise mood disorder not on maintenance medications patient denies suicidality Diet: regular DVT prophylaxis: SCDs Re possible GI bleed Full code Dispo: Pt would like dual facility treatment/rehab on discharge (CM would like heads up on when stable for discharge to start the search/referral process) Admission and Anticipated Discharge Date Admission Date: July 02, 2023 Subjective Pt seen in follow up of sepsis, LLE cellulitis, pna, recent hx of fentanyl od, on methadone WBC decreased now and pt afebrile. feeling better - able to stand up and walk to bathroom, even though still with a lot of pain in his foot when walking. LLE much less swollen and less erythematous. ID consulted and discussed with - antibiotics were changed to ceftriaxone and clindamycin, plan to switch to po keflex once stable for DC to rehab No chest pain, shortness of breath or abd. pain. Discussed w/ CM today and methadone clinic physician. Previous dose 208 , will consider to increase on discharge. Review of Systems Review of Systems: All systems reviewed & are unremarkable except as noted in Subjective Physical Exam Physical Exam: General: WD/WN young M in NAD HEENT: NC/AT Chest: Nontender to palpation. CV: RRR, No murmurs appreciated Resp: Breath sounds clear bilaterally, no increased effort of breathing. Abdomen: Soft Neuro: awake alert, answers appropriately, no facial asymmetry, moves extremities Extremities: erythematous and edematous LLE (much improved) with healing lesions noted Skin: erythematous lower extremities with healing lesions (much improved) Results & Data Results & Data Vital Signs (Past 12 Hours) Vital Signs Temp Pulse Pulse Resp BP BP Pulse Ox 07/11/23 11:42 36.6 C 81 16 112/64 94 07/11/23 08:44 61 07/11/23 08:25 36.6 C 69 16 118/56 L 96 07/11/23 03:56 36.8 C 66 20 113/62 93 O2 Del Method 07/11/23 11:42 Room Air 07/11/23 08:44 07/11/23 08:25 Room Air 07/11/23 03:56 Room Air Laboratory Results 07/11/23 Range/Units 05:44 WBC 9.44 (4.8-10.8) K/ul RBC 3.85 L (4.70-6.10) M/uL Hgb 10.7 L (14.0-18.0) g/dl Hct 32.8 L (42.0-52.0) % MCV 85.2 (80.0-100.0) fL MCH 27.8 (25.0-34.0) pg MCHC 32.6 (32.0-36.0) g/dL RDW Std Deviation 47.6 H (36.4-46.3) fL RDW Coeff of Randa 15.4 H (11.5-14.5) % Plt Count 375 (130-400) K/uL MPV 9.9 (9.4-12.4) fL Sodium 136 (136-145) mmol/L Potassium 4.6 (3.5-5.1) mmol/L Chloride 102 (98-107) mmol/L Carbon Dioxide 26 (21-32) mmol/L Anion Gap 8 (3-11) BUN 10 (6-23) mg/dl Creatinine 0.65 (0.6-1.4) mg/dl Est Cr Clr Drug Dosing 179.1 ml/min Est GFR ( Amer) 149.2 ml/min Est GFR (Non-Af Amer) 128.7 ml/min BUN/Creatinine Ratio 15.4 (10-20) Glucose 108 H (70-99(Fasting)) mg/dl Calcium 8.4 L (8.6-10.3) mg/dl Phosphorus 4.2 (2.5-4.9) mg/dl Magnesium 2.1 (1.7-2.4) mg/dl Medications Administered Current Inpatient Medications Acetaminophen (Acetaminophen 325 Mg Tab) 650 mg PO Q6H PRN PRN Reason: fever/pain Stop: 08/01/23 19:35 Albuterol (Albuterol Hfa 8 Gm Inhaler) 2 puffs INH Q4H PRN PRN Reason: Shortness Of Breath Or Wheezin Stop: 08/05/23 22:29 Last Admin: 07/06/23 23:03 Dose: 2 puffs Guaifenesin (Guaifenesin 600 Mg Tabcr) 600 mg PO Q12 [facility] Stop: 08/03/23 08:59 Last Admin: 07/11/23 08:55 Dose: 600 mg Heparin Sodium (Porcine) (Heparin Sod 5,000 Unit/0.5 Ml Vial) 5,000 units SQ Q1 2 [facility] Stop: 08/03/23 20:59 Last Admin: 07/11/23 08:56 Dose: Not Given Pantoprazole Sodium 40 mg/ (Syringe) 10 mls @ 5 mls/min IV BID [facility] Stop: 08/02/23 08:59 Last Admin: 07/11/23 08:54 Dose: 5 mls/min Ceftriaxone Sodium 2,000 mg/ (Dextrose) 50 mls @ 100 mls/hr IV Q24H [facility]; Protocol Stop: 07/13/23 19:59 Last Infusion: 07/10/23 20:43 Dose: Infused Clindamycin Phosphate (Cleocin/D5w) 900 mg in 50 mls @ 100 mls/hr IV Q8H [facility] Stop: 07/13/23 07:59 Last Infusion: 07/11/23 09:46 Dose: Infused Ibuprofen (Ibuprofen 200 Mg Tab) 400 mg PO Q4H PRN PRN Reason: Pain or Fever Stop: 08/10/23 14:59 Lactobacillus Acidophilus (Advanced Probiotic 1250 Mg Capsule) 2 cap PO DAILY [facility] Stop: 08/03/23 08:59 Last Admin: 07/11/23 08:56 Dose: 2 cap Magnesium Oxide (Magnesium Oxide 400 Mg Tab) 400 mg PO BID [facility] Stop: 08/03/23 13:59 Last Admin: 07/11/23 08:57 Dose: 400 mg Methadone HCl (Methadone Oral Soln 2 Mg/Ml) 175 mg PO Q24H [facility] Stop: 07/20/23 05:59 Last Admin: 07/11/23 05:27 Dose: 175 mg Non-Formulary Medication (Patient's Own Controlled Med 1) 1 each PO Q24H [facility] Stop: 07/19/23 05:59 Last Admin: 07/11/23 05:28 Dose: Not Given Polyethylene Glycol (Polyethylene (Miralax) 17 Gm Pack) 17 gm PO DAILY [facility] Stop: 08/03/23 08:59 Last Admin: 07/11/23 08:57 Dose: Not Given Potassium Phosphate (Pot Phosphate Monobasic W/ Sod Tab) 1 tab PO QID [facility] Stop: 08/04/23 08:59 Last Admin: 07/07/23 08:26 Dose: 1 tab Senna/Docusate Sodium (Docusate Sodium/Senna 50/8.6mg Tab) 1 tab PO BID [facility] Stop: 08/02/23 08:59 Last Admin: 07/11/23 08:56 Dose: Not Given Sennosides (Senna 8.6 Mg Tab) 8.6 mg PO QAM [facility] Stop: 08/06/23 14:29 Last Admin: 07/11/23 08:57 Dose: Not Given
[2023-07-11] MEDS: IBUPROFEN 200 MG TAB PO PRN (15:37)
[2023-07-12 08:04] LABS: Hematocrit (blood only) 28.8 % (42.0-52.0); Hemoglobin 9.3 g/dl (14.0-18.0); Mean Corpuscular Hemoglobin 27.4 pg (25.0-34.0); Mean Corpuscular Hgb Conc 32.3 g/dL (32.0-36.0); Mean Platelet Volume 8.1 fL (9.4-12.4); Platelet Count 455 K/uL (130-400); RDW Coefficient of Variation 15.4 % (11.5-14.5); RDW Standard Deviation 47.2 fL (36.4-46.3); Red Blood Count 3.39 M/uL (4.70-6.10); White Blood Count 8.95 K/ul (4.8-10.8)
[2023-07-12 08:24] LABS: BUN Creatinine Ratio 18.7 (10-20); Calcium 8.1 mg/dl (8.6-10.3); Creatinine Clr Calc Pharmacy 127.9 ml/min; Est GFR (African American) 128.8 ml/min; Est GFR (Non-African American) 111.1 ml/min; Phosphorus 4.6 mg/dl (2.5-4.9); Potassium 4.3 mmol/L (3.5-5.1)
--- NOTE | 2023-07-12 10:46 | Discharge Summary ---
Date of Service July 12, 2023 Admission HPI Per Admitting Provider History obtained from patient and records. Medical history significant for chronic pain on methadone, HCV status post Mavyret Rx, GERD, mood disorder, chronic anemia (baseline hemoglobin 11-12), ongoing tobacco abuse. Patient seen at PCP's office on 2 occasions last year for leg cellulitis. Admits to shooting drugs into his veins. Leg swelling improved with outpatient antibiotic courses. Recent [facility] ER visit last month for shortness of breath, bilateral leg swelling and syncope. Swelling improved with Bactrim, Augmentin, and Lasix Rx. Patient noted bilateral leg swelling more on the left than the last week. No abdominal distention, patient actually losing weight. No fever, no chills. Patient methadone currently on hold from local methadone clinic due to patient presenting at the clinic "high on other drugs" 4 days ago. Admits to snorting fentanyl leading to overdose night before he went to clinic. Increased weakness over the last few days. Junky cough productive of yellow sputum. Denies aspiration. Not sure about sick contacts. Patient completed COVID-19 vaccination. Fever chills at home. Achy headache and chest pain symptoms from coughing. No abdominal pain or emesis symptoms. No BM for 1 week as per patient. Denies OTC NSAID intake Patient found at home by father to be weak and sick looking. Patient brought to ER for evaluation. NSS, Cefepime and Vancomycin administered at the ER. 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 Admission Exam Per Admitting Provider GENERAL: Comfortable, pleasant, ill-appearing, no respiratory distress SKIN: Multiple dark papular lesions noted over extremities and trunk, pallor, warm HEENT: Pale palpebral conjunctivae, no ptosis, dry buccal mucosa NECK : Supple, no tenderness CHEST : CTA, no tenderness HEART : RRR, no obvious murmurs ABDOMEN: Some distention, nontender RECTAL : Intact sphincter, melanotic stool (FOBT positive) EXTREMITIES : Bilateral LE swelling, LLE erythema with minimal tenderness, no other conspicuous deformities noted NEUROLOGIC : Coherent, no facial asymmetry, no other gross focality Principal Diagnosis Sepsis LLE cellulitis Aspiration pneumonia IV drug use Discharge Exam General: WD/WN young M in NAD HEENT: NC/AT Chest: Nontender to palpation. CV: RRR, No murmurs appreciated Resp: Breath sounds clear bilaterally, no increased effort of breathing. Abdomen: Soft Neuro: awake alert, answers appropriately, no facial asymmetry, moves extremities Extremities: erythematous and edematous LLE (much improved) with healing lesions noted Skin: erythematous lower extremities with healing lesions (much improved) Discharge Data Allergies Allergy/AdvReac Type Severity Reaction Status Date / Time chlorpromazine Allergy Severe facial Verified 07/02/23 16:43 [From Thorazine] swelling and agitation amoxicillin Allergy Intermediate leg and Verified 12/11/22 19:28 feet swelling Consultations 07/02/23 19:07 ED Decision to Admit Stat 07/02/23 20:27 Consult Gastroenterology Routine 07/05/23 07:44 Consult Infectious Diseases Routine Ordered Studies 07/02/23 17:00 CT head/brain wo con Stat FINDINGS: Brain parenchyma: The brain parenchyma is normal in appearance. There is no hemorrhage, mass effect, or evidence of acute territorial ischemia by CT criteria. Acosta-white matter differentiation is preserved. No extra-axial fluid collection is seen. Ventricles, sulci, cisterns: Normal in configuration. Intracranial vasculature: The visualized intracranial vasculature at the skull base is normal in appearance. Calvarium: Unremarkable. Sinuses and mastoids: The visualized paranasal sinuses are clear. The mastoid air cells are well pneumatized. Orbits: The bony orbits are grossly intact. IMPRESSION: There is no hemorrhage, mass effect, or evidence of acute territorial ischemia by CT criteria. 07/02/23 17:16 CT angio chest PE protocol Stat FINDINGS: Thyroid: Imaged portions of the thyroid gland are normal in size and attenuation. Thoracic aorta: The thoracic aorta is normal in caliber and demonstrates standard 3-vessel arch anatomy. No dissection is seen. Pulmonary vasculature: The pulmonary trunk is normal in caliber. There are no filling defects identified in main, lobar, or proximal segmental pulmonary branches to suggest pulmonary embolus. Evaluation of the peripheral branches is degraded by motion artifact and lack of contrast opacification. Heart: The heart is mildly enlarged and without pericardial effusion. Lungs and pleural spaces: Evaluation of the lung parenchyma is degraded by motion artifact. There is patchy airspace consolidation in the left lower lobe and lingula typical for pneumonia. There is trace left pleural effusion. The right lung appears clear. The trachea and central airways are patent. Mediastinum: There are numerous prominent mediastinal lymph nodes which measure up to 9 mm in short axis. Ailyn: Clear. Axillae: There is no axillary lymphadenopathy. Upper abdomen: The spleen is mildly enlarged measuring 13.5 cm in length. Partially visualized upper abdominal viscera is otherwise grossly unremarkable. Skeletal structures: No lytic or blastic bony lesions are seen. Soft tissues: Gynecomastia is noted. IMPRESSION: 1. There is no evidence of central pulmonary embolus in the main, lobar, or proximal segmental pulmonary arteries. The distal segmental and subsegmental branches are not well assessed. 2. Airspace consolidation in the left lower lobe and lingula is typical for pneumonia. Clinical correlation will be required and radiographic follow-up to resolution is recommended. 3. Trace of pleural effusion. 4. There are numerous prominent mediastinal lymph nodes which are nonspecific and likely reactive. 5. Mild splenomegaly. 6. Additional findings as above. 07/02/23 20:19 US venous doppler LE RT Stat FINDINGS: Deep veins: Unremarkable. No DVT in the visualized common femoral, femoral, proximal deep femoral or popliteal veins. The veins demonstrate normal color flow, are normally compressible, with normal phasic flow and/or augmentation response. Superficial veins: Unremarkable. No thrombus in the visualized great saphenous vein. Soft tissues: No acute findings. No popliteal cyst. Lymph nodes: The bone enlarged lymph nodes, largest lymph node in the right groin measuring 4.0 x 1.6 x 1.8 cm consistent with lymphadenopathy, etiology indeterminate. Other findings: The patient refused examination of the left lower extremity. IMPRESSION: No ultrasonographic evidence of deep venous thrombosis involving the right lower extremity. 07/03/23 07:00 CT leg [CT tib/fib LT w con] Urgent FINDINGS: The skeletal structures are well-mineralized. There is no evidence of tibial or fibular fracture. There is no bony erosion or periostitis. The knee and ankle joints are grossly maintained. There is no evidence of osteochondral defect in the talar dome. No ankle joint effusion is identified. Diffuse subcutaneous soft tissue edema and fluid is seen throughout the left lower extremity. No organized fluid collection is seen to suggest abscess. The regional vessels appear patent. The regional musculature is normal in appearance. The Achilles tendon is intact as visualized. There is a small popliteal cyst. IMPRESSION: 1. No acute bony abnormality is identified. 2. Diffuse subcutaneous soft tissue edema and fluid is seen throughout the left lower extremity. Correlate clinically for evidence of cellulitis. 3. No organized fluid collection is seen to suggest abscess. 4. Small popliteal cyst. 07/04/23 13:58 MR brain wo/w con Urgent FINDINGS: Brain: No abnormal enhancement. No mass. No hemorrhage. No acute infarct. Ventricles: Unremarkable. No ventriculomegaly. Bones/joints: Unremarkable. No acute fracture. Sinuses: Unremarkable as visualized. No acute sinusitis. Mastoid air cells: Unremarkable as visualized. No mastoid effusion. Orbits: Unremarkable as visualized. IMPRESSION: Normal head/brain MRI. 07/06/23 15:12 MR lower leg LT wo/w con Urgent FINDINGS: Bones/joints: Normal marrow signal. No reactive changes or evidence of osteomyelitis. No acute fracture. No dislocation. Soft tissues: Diffuse circumferential subcutaneous soft tissue edema and skin thickening consistent with cellulitis or venous insufficiency. No rim-enhancing abscess. No soft tissue gas. No necrotizing fasciitis. Muscle bulk is preserved. No tendon tear identified. IMPRESSION: 1. Cellulitis versus venous insufficiency. No abscess or necrotizing fasciitis. 2. No evidence of acute osteomyelitis. Hospital Course (1) Sepsis: Plan Pt is a 32yoM with PMHx significant for chronic pain on methadone, HCV status post Mavyret Rx, GERD, mood disorder, chronic anemia (baseline hemoglobin 11- 12), ongoing tobacco abuse admitted with sepsis in the setting of pneumonia and cellulitis. Severe Sepsis Pneumonia, CAP vs. Aspiration WBC elevated >27K on admission, febrile, tachycardic with noted infectious source in lungs and lower extremities Hypotensive meets sepsis criteria Lactate was normal, procalcitonin elevated at 2.51 Chest XR with concerning opacity in lingula, chest CTA confirming LLL and lingula pneumonia, no PE. Also noted mediastinal lymphadenopathy possibly reactive, trace pleural effusions. Sputum Cx - negat. Blood Cx x 2 negat. in 48 hrs Continued with Flagyl, Cefepime and Doxycycline ordered -> because pt febrile - doxy changed to vanco by [facility] letter carrier - after discussing w/ ID -> currently abx changed to ceftriaxone and clinda added guaifenesin, flutter valve. pt reports cough improved. Pt continues to breath comfortably on RA, cough overall much improved/ resolved LLE Cellulitis Pt with bilateral lower extremity cellulitis Admits to injecting IV drugs into his lower extremities CT LLE noting cellulitis changes Consider MRI to definitely rule out osteomyelitis RLE Venous doppler with no signs of DVT Continue with Cefepime and vancomycin as noted above Blood cultx - negat. in 48 hrs Scrotum wound , and leg skin wound cultx - Group A strep wound care consulted ID consulted 07/04 Pt febrile last evening. WBC still elevated but pt feeling better and LLE less edematous and less erythematous. 07/05 Afebrile, feeling better. WBC still elevated. LLE less erythematous and edematous. Pt reports he can't stand on it though. 07/06 ID consulted and discussed with - Patient presenting with malaise and productive cough with findings suggestive of PNA and cellulitis. The PNA may be from an aspiration event in the setting of recent overdose. He is currently receiving vanco, cefepime, and flagyl. Superficial cultures of his wounds are growing GAS and sputum cultures are only growing normal duke. GAS is an extremely virulent organism and thus given ongoing pain, redness and leukocytosis recommend MRI of the LLE to further evaluate 1. Recommend stopping vanc, cefepime, and flagyl 2. Start Ceftriaxone 2g daily and clindamycin 900 IV TID for antitoxin effect - antibiotics changed 3. MRI LLE 4. If he clinically worsens in any way would additionally recommend surgical evaluation for necrotizing fasciitis Final abx plans remain pending. MR DUTTON - IMPRESSION: 1. Cellulitis versus venous insufficiency. No abscess or necrotizing fasciitis. 2. No evidence of acute osteomyelitis. 07/07 -07/11 Pt improved. Edema and erythema improved and pt can stand up and walk to bathroom now. Still with some pain in his foot when walking. Afebrile. WBC trending normalized. Discussed w/ ID , plan to DC on po keflex once stable to DC to rehab. Iron Deficiency Anemia Pt with noted chronic anemia baseline hemoglobin 11-12, currently above 9 Noted microcytic Iron level <10, b12 appears oversupplemented, folate wnl IV Venofer ordered previously for iron supplementation monitor, can start iron suppl. if not improved Melena Reported in the ED Pt currently at baseline hgb On IV ppi -> changed to PO GI was consulted on admission Recommending outpt followup Hyponatremia Pt with noted sodium of 126 on admission Received multiple fluid boluses in the ED Sodium slowly increasing, currently 134 Urine sodium <10, urine osm low at 272 monitor BMP Hypomagnesemia Replete and monitor UTI - ruled out UA was suggestive of infection Urine Cx negative IV Drug Use Pt admits to injecting into his lower extremities Notes recent fentanyl overdose On methadone chronically, follows with a methadone clinic. Recent d/c due to drug use. On bowel reigmen with senna, pr miralax Toxicology screen this admission positive for opiates, methadone, amphetamines, MDMA. Per admitting doc, pt's outpt methadone provider recommending daily 175 mg p.o. daily until discharge. His outpt dose is 208, consider to increase on DC. (Split daily dosing of 87.5 mg p.o. twice daily also an option if patient pain not controlled with usual daily dosing as per provider) Pt currently declining spilt dosing. Echo with no evidence of vegetations suggestive of endocarditis at this time. Per CM, pt would like dual facility treatment/rehab on discharge (CM would like heads up on when stable for discharge to start the search/referral process) Chest Pain Pt presented with chest pain as well. hs-trop was wnl, EKG noted sinus tachycardia CT chest as noted above with pneumonia but no PE Echo with EF 60-65%, no valvular abnormalities and with no evidence of vegetations suggestive of endocarditis at this time Headache Pt with severe headache on admission Head CT with no acute abnormalities MRI was ordered but Pt DECLINED further evaluation with brain MRI stating that his headache has since gotten better and was likely related to his pain Again with AL and wanted to proceed w/ MRI - brain MRI negative Melena Reported in the ED GI was consulted on admission Recommending outpt followup Splenomegaly Noted incidentally on CT imaging HCV status post Mavyret Rx INR slightly elevated at 1.2 Stable otherwise mood disorder not on maintenance medications patient denies suicidality Diet: regular Dispo: rehab - [facility] D[facility]A rehab Total Time Total Time Spent Total Time Spent (In Minutes): 40 Discharge Plan Discharge Items Patient Disposition: Drug & Alcohol Rehab Reason For Visit: SEPSIS Discharge Diagnosis: Sepsis LLE cellulitis Aspiration pneumonia IV drug use Activity: Per Instructions section Non-emergency contact: Primary Care Provider Call non-emergency contact if: you have any medication questions and your symptoms worsen Follow-up/Referrals: Nir Lucio MD [Primary Care Provider] - Diet: Regular Addtl Attending Provider Instructions: Follow up with primary care physician within 1 week. Finish antibiotic course as prescribed. Continue using methadone. For pain and anti-inflammatory effect also can use ibuprofen. In addition, you can use tylenol as needed as prescribed. Pending Studies at Discharge: No Stand-Alone Forms: My [facility] [address] Skilled Items Patient informed of condition?: Yes DNR: No Discharge Level of Care: Other Communicable Disease: No Discharge Prognosis: Stable Lines: None Urinary Catheter: No Medications and DC Order Prescriptions: New sennosides [Senokot] 8.6 mg Tablet 8.6 mg PO QAM Qty: 30 0RF Advanced Probiotic 625 mg (10 billion cell) Capsule 2 cap PO DAILY Qty: 14 0RF polyethylene glycol 3350 [Miralax] 17 gram Powder In Packet 17 g PO DAILY PRN (Reason: constipation) Qty: 14 0RF ibuprofen 200 mg Tablet 400 mg PO QID PRN (Reason: pain) Qty: 14 0RF acetaminophen 325 mg Tablet 650 mg PO Q6H PRN (Reason: pain) Qty: 14 0RF methadone 10 mg/5 mL Solution 175 mg PO Q24H Qty: 500 0RF cephalexin 500 mg capsule 500 mg PO QID 7 Days Qty: 28 0RF pantoprazole 40 mg tablet,delayed release (DR/EC) 40 mg PO DAILY Qty: 30 0RF Discontinued methadone 200 mg PO DAILY Discharge Orders: Discharge Order (Routine); Ordered 07/12/23 Ordered By: Ra Zayas Admission Data Admit Date/Time: 07/02/23 20:21 Attending Provider: Ra Zayas Admit Provider: Jericho Canseco Primary Care Provider: Nir Lucio Other Providers: Neha Correa; Michel Mcghee; Marta Crowder; Janine Ozuna; Aissatou Anderson; Ngoc Chino; Mainor Garcia; Enrrique Velasquez; Angelita Mclaughlin; Melissa Elam; Dylan Padilla S; Valerie Trujillo; Migdalia Noriega; Norma Garza; Anna Villalobos; Aislinn Li; Jason Ely; Salazar Jean; Yajaira Navas; Ernie Garcia Jr; Jericho Canseco; Paul Vu; Dagoberto Mo; Byron Lagunas I.; Tiago Field II; Leila Berkowitz; Jose Angel Quinn; Jason Mcgee; Song Coelho; Sloan Marie
== END 2023-07-12 12:56 | disposition alcohol treatment (31) | DRG 871 ==
LOC: ED 14:58 → SUATTDRO 20:21 → EDINP 20:21 → 2N 22:50

== ENCOUNTER 2023-09-25 08:40 | Inpatient (IN) ==
--- NOTE | 2023-09-25 09:04 | Emergency Department Note ---
History of Present Illness General Chief complaint: Infection, Wound Stated complaint: INFECTION,DIZZINESS Time Seen by Provider: 09/25/23 08:59 History of Present Illness Maximum Pain Intensity: 5 This is a 32-year-old male with a history of infection earlier this year that presents to the emergency department via private vehicle with complaints of "infection, dizziness". The patient notes that he has abscesses on his arms and legs, notes drainage from his eyes, also notes a cough, headache. He had similar presentation earlier this year for an infection and per review of the EMR was diagnosed with sepsis. He notes a history of IV drug use specifically IV meth and fentanyl was utilized this morning. Home Medications Medication Instructions Recorded Confirmed Type No Known Home Medications 09/25/23 09/25/23 History Allergies Allergy/AdvReac Type Severity Reaction Status Date / Time chlorpromazine Allergy Severe facial Verified 09/25/23 11:59 [From Thorazine] swelling and agitation amoxicillin Allergy Intermediate leg and Verified 09/25/23 11:59 feet swelling Past Med/Surg History Medical History (Updated 09/25/23 @ 16:08 by Narendra Dinh PA-C) Opioid abuse with withdrawal Methamphetamine abuse Surgical History No pertinent past surgical history Social History Smoking Status: Current every day smoker Tobacco Type: Cigarettes Cigarettes Per Day: Half Pack; Do You Dip or Chew Tobacco: No; Hx Alcohol Use: No Hx Substance Use: Yes Last Used Substance: Hours (ago) Substance Use Type Other:: fentanyl Preferred Language: Danish Communication Ability: Effective 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 Beliefs That Will Affect Care: None Current Living Situation: Alone Other Information That Helps Us Care for You: No Feels Safe at Home: Yes Safety Concerns: Feels Safe At This Time Assistive Devices: None Review of Systems A total of 10 systems reviewed and were otherwise negative Physical Exam Vital Signs Vital Signs - 24 hr 09/25/23 08:50 09/25/23 10:43 09/25/23 11:02 Temperature 36.3 C L Temperature Source Oral Pulse Rate 79 76 Pulse Rate [Apical] 78 Respiratory Rate 14 18 Respiratory Effort / Characteristics Non-Labored Spontaneous Respiratory Depth Normal Blood Pressure 119/76 Blood Pressure [Left Arm] 135/73 Blood Pressure Mean 90 Blood Pressure Mean [Left Arm] 93 Blood Pressure Position [Left Arm] Lying Pulse Oximetry 100 99 Oxygen Delivery Method Room Air Room Air Sepsis New/Unexplained Change in Mental Status No Sepsis Action Taken by Nursing No Action Required VITAL SIGNS - Vital signs and nursing notes were reviewed. Stable and afebrile. GENERAL -32-year-old male appearing his stated age who is in no acute distress. Communicates well with provider and answers questions appropriately. SKIN -there are several wounds to the lower extremities left greater than right consistent with recent injection sites. Some of these regions do have palpable indurated areas and the left superior anterior thigh region just distal to the inguinal crease on the left exhibits an ulcerative type appearance. None of these are purulent or draining any fluid. The ulcerative region measures approximate 1.5 cm in diameter. There is bilateral lower extremity edema noted. HEAD - NC/AT. EYES - Sclera anicteric. EARS - No deformities of external structures noted on gross examination bilaterally. NOSE - Midline and without cyanosis. No epistaxis or purulent drainage noted. MOUTH/OROPHARYNX - Without perioral cyanosis. NECK - Neck with FROM. No nuchal rigidity. LUNGS - Chest wall symmetric without accessory muscle use, intercostals retractions, or central cyanosis. Normal vesicular breath sounds CTA B/L. No wheezes, rales, or rhonchi appreciated. CARDIAC - RRR, no murmur ABDOMEN - Abdominal contour normal without pulsations or visible masses. BS normoactive all four quadrants. No tenderness, palpable masses, hepatosplenomegaly, or ascites noted. EXTREMITIES - No clubbing or peripheral cyanosis. Bilateral lower extremity edema noted. Skin as above. Lower extremities are well-perfused. +5/5 strength noted in UE/LE bilaterally. NEUROLOGIC - Cranial nerves II through XII grossly intact. PSYCH -alert, oriented and pleasant on exam. Course Administered Medications Dicyclomine HCl (Dicyclomine Hcl 10 Mg Cap) 10 mg PO QID [facility] Stop: 10/25/23 12:59 Last Admin: 09/25/23 14:49 Dose: 10 mg Documented By: CHELSEY Clindamycin Phosphate (Cleocin/D5w) 600 mg in 50 mls @ 100 mls/hr IV Q8H [facility] Stop: 10/02/23 13:59 Last Infusion: 09/25/23 15:20 Dose: Infused Documented By: Admin: 09/25/23 14:49 Dose: 100 mls/hr Documented By: CHELSEY Ceftriaxone Sodium 2,000 mg/ (Dextrose) 50 mls @ 100 mls/hr IV Q24H [facility]; Protocol Stop: 10/02/23 14:29 Last Admin: 09/25/23 15:46 Dose: 100 mls/hr Documented By: CHELSEY Discontinued Medications Sodium Chloride (Nss) 1,000 mls @ 999 mls/hr IV .Q1H1M [facility] Stop: 09/25/23 11:45 Last Infusion: 09/25/23 11:52 Dose: Infused Documented By: Admin: 09/25/23 10:51 Dose: 999 mls/hr Documented By: NETTE Vancomycin HCl 2,000 mg/ (Sodium Chloride) 540 mls @ 200 mls/hr IV NOW ONE Stop: 09/25/23 14:25 Last Infusion: 09/25/23 15:43 Dose: Infused Documented By: Admin: 09/25/23 12:44 Dose: 200 mls/hr Documented By: NETTE Medical Decision Making Laboratory Data 09/25/23 09:28 09/25/23 09:28 Lab Results 09/25/23 09/25/23 Range/Units 09:05 09:28 WBC 8.98 (4.8-10.8) K/ul RBC 4.27 L (4.70-6.10) M/uL Hgb 11.5 L (14.0-18.0) g/dl Hct 36.5 L (42.0-52.0) % MCV 85.5 (80.0-100.0) fL MCH 26.9 (25.0-34.0) pg MCHC 31.5 L (32.0-36.0) g/dL RDW Std Deviation 43.1 (36.4-46.3) fL RDW Coeff of Randa 13.8 (11.5-14.5) % Plt Count 342 (130-400) K/uL MPV 8.5 L (9.4-12.4) fL Immature Gran % (Auto) 0.3 % Neut % (Auto) 77.6 % Lymph % (Auto) 13.0 % Deuel % (Auto) 7.9 % Eos % (Auto) 0.8 % Baso % (Auto) 0.4 % Neut # (Auto) 6.96 H (1.40-6.50) K/uL Lymph # (Auto) 1.17 L (1.20-3.40) K/uL Deuel # (Auto) 0.71 H (0.11-0.59) K/uL Eos # (Auto) 0.07 (0.00-0.50) K/uL Baso # (Auto) 0.04 (0.00-0.20) K/uL Immature Gran # (Auto) 0.03 (0.01-0.20) K/uL PT 10.8 (9.0-12.0) Seconds INR 1.0 (0.9-1.1) APTT 30 (21-31) Seconds PTT Ratio 1.1 Sodium 137 (136-145) mmol/L Potassium 3.7 (3.5-5.1) mmol/L Chloride 98 (98-107) mmol/L Carbon Dioxide 32 (21-32) mmol/L Anion Gap 7 (3-11) BUN 12 (6-23) mg/dl Creatinine 0.97 (0.6-1.4) mg/dl Est Cr Clr Drug Dosing 127.8 ml/min Est GFR ( Amer) 119.2 ml/min Est GFR (Non-Af Amer) 102.9 ml/min BUN/Creatinine Ratio 12.4 (10-20) Glucose 104 H (70-99(Fasting)) mg/dl Lactate 0.9 (0.4-2.0) mmol/L Calcium 9.6 (8.6-10.3) mg/dl Magnesium 1.8 (1.7-2.4) mg/dl Total Bilirubin 0.4 (0.2-1.0) mg/dl AST 15 (13-39) U/L ALT 11 (7-52) U/L Alkaline Phosphatase 80 (34-104) U/L Total Protein 7.8 (6.0-8.3) gm/dl Albumin 4.5 (3.4-5.0) gm/dl Globulin 3.3 (2.5-4.0) gm/dl Albumin/Globulin Ratio 1.4 (0.9-2) Lipase 5 L (11-82) U/L Procalcitonin 0.02 (0-0.5) ng/ml Adenovirus (PCR) Not Detected (NotDetected) B. pertussis DNA (PCR) Not Detected (NotDetected) B.parapertussis DNA PCR Not Detected (NotDetected) C. pneumoniae DNA (PCR) Not Detected (NotDetected) Coronavirus OC43 (PCR) Not Detected (NotDetected) Coronavirus HKU1 (PCR) Not Detected (NotDetected) Coronavirus 229E (PCR) Not Detected (NotDetected) SARS-CoV-2 (PCR) Not Detected (NotDetected) Coronavirus NL63 (PCR) Not Detected (NotDetected) Human Metapneumovir PCR Not Detected (NotDetected) Influenza Type A (PCR) Not Detected (NotDetected) Influenza Type B (PCR) Not Detected (NotDetected) M. pneumoniae (PCR) Not Detected (NotDetected) Parainfluenza 1 (PCR) Not Detected (NotDetected) Parainfluenza 2 (PCR) Not Detected (NotDetected) Parainfluenza 3 (PCR) Not Detected (NotDetected) Parainfluenza 4 (PCR) Not Detected (NotDetected) RSV (PCR) Not Detected (NotDetected) Entero/Rhino (PCR) Not Detected (NotDetected) Imaging Data Radiologist's Impression: Chest X-Ray 09/25/23 09:01 XR chest 1V portable CLINICAL HISTORY: Cough. COMPARISON STUDY: Chest radiograph and chest CT July 02, 2023. FINDINGS: Lung volumes are normal. Lungs are clear. There is no pneumothorax or pleural effusion. Cardiac size is normal. Mediastinal contours are normal. There is no evidence for pulmonary edema. IMPRESSION: No acute cardiopulmonary findings. ACT 112: Negative or not required by law. Electronically signed by: Wesley Kelly M.D. 09/25/2023 9:48 AM Venous Doppler Study 09/25/23 10:33 BILATERAL LOWER EXTREMITY VENOUS DOPPLER CLINICAL HISTORY: Bilat lower leg IV drug use, palpable nodular like COMPARISON STUDY: Right lower extremity venous Doppler ultrasound July 02, 2023. Bilateral low-attenuation a venous Doppler ultrasound December 07, 2022. TECHNIQUE: Sonography of the deep venous system of the bilateral lower extremities was performed. Compression and augmentation were evaluated. FINDINGS: The bilateral common femoral, superficial femoral and popliteal veins were compressible. Augmentation was normal. Flow was shown within the deep calf vessels. Prominent left inguinal lymph node measures 4.7 x 1.1 x 3.6 cm. This node contains a fatty hilum. This node is likely benign. IMPRESSION: No evidence of deep venous thrombus within the bilateral lower extremities. ACT 112: Negative or not required by law. Electronically signed by: Wesley Kelly M.D. 09/25/2023 11:32 AM MDM Narrative Patient was seen and evaluated as above in room A04b. Review was performed of triage nursing notes and vital signs. After obtaining a thorough history and physical examination the above work up was performed. Patient presents to us today for evaluation of concern that he may be septic. The patient has a history of IV drug use, last of which was this morning. This was IV fentanyl and IV methamphetamine. The patient notes he has a headache, in addition to cough, and some drainage from the eyes. Patient notes similar presentation earlier this year for sepsis. Options of care were discussed with the patient. IV access was established. Labs were drawn. There is no leukocytosis. Hemoglobin 11.5. Coags normal. No evidence of kidney or liver failure. Procalcitonin 0.02 and within normal range. Bio fire negative. Chest x-ray per my interpretation negative for pneumonia. Ultrasound of the lower extremities were obtained noting the indurated regions at the injection sites. Negative DVT study. However, left inguinal lymphadenopathy I believe is secondary to the lower extremity infections from the injection sites. Blood cultures currently pending. I did review previous cultures. IV vancomycin ordered empirically. Noting the patient's symptoms in the setting of past medical history and IV drug use, there is concern that he may be experiencing a worsening infection which would be best managed with IV antibiotics and trend blood cultures. I discussed this with the hospitalist service. Patient amenable to this plan. Please refer to further documentation regarding his stay While in the department, I personally reevaluated the patient several times and each time the patient was found to be resting comfortably. The patient was educated upon management, educated upon todays findings/results, educated upon importance of follow up from today's visit, educated upon symptoms in which to return, had questions answered prior to discharge, verbalized understanding, and was discharged home in good condition. Case discussed with the attending physician GCS: 15 In the evaluation and treatment of this patient the following differential diagnoses were entertained: Sepsis, bacteremia, cellulitis, abscess, osteomyelitis, necrotizing fasciitis, among others Impression & Plan Cellulitis of leg, History of intravenous drug abuse, Leg wound, left Discharge Plan Visit Data Chief Complaint: Infection, Wound Stated Complaint: INFECTION,DIZZINESS ED Provider: Isaak Vargas ED Midlevel Provider: Narendra Dinh Discharge Problem: Cellulitis of leg, History of intravenous drug abuse, Leg wound, left Patient Disposition: Admitted As Inpatient Condition: Good Discharge Instructions Interventions: ED Discharge Assessment Last Done: 09/25/23 13:42
--- NOTE | 2023-09-25 09:50 | XRay Report ---
XR chest 1V portable CLINICAL HISTORY: Cough. COMPARISON STUDY: Chest radiograph and chest CT July 02, 2023. FINDINGS: Lung volumes are normal. Lungs are clear. There is no pneumothorax or pleural effusion. Car diac size is normal. Mediastinal contours are normal. There is no evidence for pulmonary edema. IMPRESSION: No acute cardiopulmonary findings. ACT 112: Negative or not required by law. Electronically signed by: Wesley Kelly M.D. 09/25/2023 9:48 AM
[2023-09-25 09:55] LABS: Basophils # (auto) 0.04 K/uL (0.00-0.20); Basophils % (auto) 0.4 %; Eosinophils # (auto) 0.07 K/uL (0.00-0.50); Eosinophils % (auto) 0.8 %; Hematocrit (blood only) 36.5 % (42.0-52.0); Hemoglobin 11.5 g/dl (14.0-18.0); Immature Granulocytes # (auto) 0.03 K/uL (0.01-0.20); Immature Granulocytes % (auto) 0.3 %; Lymphocytes # (auto) 1.17 K/uL (1.20-3.40); Mean Corpuscular Hemoglobin 26.9 pg (25.0-34.0); Mean Corpuscular Hgb Conc 31.5 g/dL (32.0-36.0); Mean Corpuscular Volume 85.5 fL (80.0-100.0); Mean Platelet Volume 8.5 fL (9.4-12.4); Monocytes # (auto) 0.71 K/uL (0.11-0.59); Monocytes % (auto) 7.9 %; Neutrophils # (auto) 6.96 K/uL (1.40-6.50); Neutrophils % (auto) 77.6 %; Platelet Count 342 K/uL (130-400); RDW Coefficient of Variation 13.8 % (11.5-14.5); RDW Standard Deviation 43.1 fL (36.4-46.3); Red Blood Count 4.27 M/uL (4.70-6.10); White Blood Count 8.98 K/ul (4.8-10.8)
[2023-09-25 10:08] LABS: Adenovirus PCR Not Detected (NotDetected); Bordetella parapertussis PCR Not Detected (NotDetected); Bordetella pertussis PCR Not Detected (NotDetected); Chlamydia pneumoniae PCR Not Detected (NotDetected); Coronavirus 229E PCR Not Detected (NotDetected); Coronavirus CoV-2 (COVID19)PCR Not Detected (NotDetected); Coronavirus HKU1 PCR Not Detected (NotDetected); Coronavirus NL63 PCR Not Detected (NotDetected); Coronavirus OC43PCR Not Detected (NotDetected); Human Metapneumovirus PCR Not Detected (NotDetected); Influenza A PCR Not Detected (NotDetected); Influenza B PCR Not Detected (NotDetected); Mycoplasma pneumoniae PCR Not Detected (NotDetected); Parainfluenza Virus 1 PCR Not Detected (NotDetected); Parainfluenza Virus 2 PCR Not Detected (NotDetected); Parainfluenza Virus 3 PCR Not Detected (NotDetected); Parainfluenza Virus 4 PCR Not Detected (NotDetected); Respiratory Syncytial VirusPCR Not Detected (NotDetected); Rhinovirus/Enterovirus PCR Not Detected (NotDetected)
[2023-09-25 10:09] LABS: Partial Thromboplastin Ratio 1.1; Partial Thromboplastin Time 30 Seconds (21-31); Prothrombin Time 10.8 Seconds (9.0-12.0)
[2023-09-25 10:12] LABS: Albumin Level 4.5 gm/dl (3.4-5.0); Bilirubin,Total 0.4 mg/dl (0.2-1.0); Calcium 9.6 mg/dl (8.6-10.3); Magnesium 1.8 mg/dl (1.7-2.4); Potassium 3.7 mmol/L (3.5-5.1)
[2023-09-25 10:18] LABS: Albumin Globulin Ratio 1.4 (0.9-2); BUN Creatinine Ratio 12.4 (10-20); Creatinine Clr Calc Pharmacy 127.8 ml/min; Est GFR (African American) 119.2 ml/min; Est GFR (Non-African American) 102.9 ml/min; Globulin 3.3 gm/dl (2.5-4.0); Total Protein 7.8 gm/dl (6.0-8.3)
[2023-09-25] MEDS: SODIUM CHLORIDE 0.9% 1,000 ML IV SCH (10:51)
--- NOTE | 2023-09-25 11:33 | Ultrasound Report ---
BILATERAL LOWER EXTREMITY VENOUS DOPPLER CLINICAL HISTORY: Bilat lower leg IV drug use, palpable nodular like COMPARISON STUDY: Right lower extremity venous Doppler ultrasound July 02, 2023. Bilateral low-at tenuation a venous Doppler ultrasound December 07, 2022. TECHNIQUE: Sonography of the deep venous system of the bilateral lower extremities was performed. Co mpression and augmentation were evaluated. FINDINGS: The bilateral common femoral, superficial femoral and popliteal veins were compressible. A ugmentation was normal. Flow was shown within the deep calf vessels. Prominent left inguinal lymph no de measures 4.7 x 1.1 x 3.6 cm. This node contains a fatty hilum. This node is likely benign. IMPRESSION: No evidence of deep venous thrombus within the bilateral lower extremities. ACT 112: Negative or not required by law. Electronically signed by: Wesley Kelly M.D. 09/25/2023 11:32 AM
[2023-09-25] MEDS ORDERED: VANCOMYCIN CONSULT ACTIVE PRN (11:44)
[2023-09-25] MEDS ORDERED: POLYETHYLENE (MIRALAX) 17 GM PACK PO PRN (12:05)
[2023-09-25] MEDS ORDERED: ONDANSETRON INJ 2 MG/ML 2 ML VIAL IV PRN (12:05)
[2023-09-25] MEDS ORDERED: MAGNESIUM HYDROXIDE SUSP 30 ML UDC PO PRN (12:05)
[2023-09-25] MEDS ORDERED: ALUMINUM/MAGNESIUM SUSP 30 ML UDC PO PRN (12:05)
--- NOTE | 2023-09-25 12:12 | History & Physical Report ---
Date of Service September 25, 2023 Assessment & Plan (1) History of intravenous drug abuse: (2) Methadone use: (3) Opioid abuse with withdrawal: (4) Cellulitis of leg: Plan 32 year old male that presents to the ED for evaluation of the infection of his left leg. He unfortunately has a history of IV drug use which includes meth and fentanyl, currently . He recently stopped taking methadone cold . He presents today with overall fatigue and pain on his worsening left leg wound. He was experiencing some swelling in his feet and his leg that persisted since July and he was treated with clindamycin and discharged home with Keflex. He reports that he is no longer taking methadone and stopped taking it cold but while he was taking it he was simultaneously using other IV drugs. He reports intermittent fevers and chills. His last IV Drug use this morning. He normally injects meth into his leg and denies any other injection sites. Patient initially was not receptive for admission but was willing to stay 1 day for follow-up to his blood cultures. Patient has significant concerns with withdrawing and has voiced he was not interested in experiencing any withdrawal effects. Patient will be admitted for further evaluation and management of his inguinal groin wounds and worsening cellulitis. He was started on IV Vancomycin, will transition to clindamycin plus ceftriaxone, MRSA screen and blood cultures pending, Consider infectious disease consult if no improvement. Will add clonidine and Bentyl and loperamide for withdrawal effects. IV Substance Abuse: Opioid Withdrawal: H/O Methadone use: Left leg cellulitis: Chronic Last IV drug use this AM Was on Methadone 230 mg; quit cold turkey a few months ago Started on Vanco in ED; will transition to Clindamycin and Ceftriaxone for better coverage Added Clonidine, Bentyl and Loperamide for tremors Venous Duplex US negative for DVT No leukocytosis, no elevated lactate, negative procalcitonin. He received 1 LNSB in the ED blood cultures and MRSA screen pending Has lymphedema bilaterally; would benefit from lymphatic drainage and lymphedema clinic if willing to do rehab Would benefit from [facility] if willing to stay and receptive to conversation Disposition: PCP: Dr. Lucio Code Status: Full Code VTE Prophylaxis: TEDs + SCDs for now I spent a total of 87 minutes coordinating, documenting, and providing care for this patient excluding time spent in the performance of separately billed services. All of the aforementioned completed while collaborating with the assigned attending physician for a full treatment plan. Please see their addendum for further details. History of Present Illness Chief Complaint: wound/infection Primary Care Provider: Nir Lucio MD Mr. Prajapati is a 32 year old male that presents to the ED for evaluation of the infection of his left leg. He unfortunately has a history of IV drug use which includes meth and fentanyl, currently . He recently stopped taking methadone cold turkey. He presents today with overall fatigue and pain on his worsening left leg wound. He was experiencing some swelling in his feet and his leg that persisted since July and he was treated with clindamycin and discharged home with Keflex. He reports that he is no longer taking methadone and stopped taking it cold but while he was taking it he was s imultaneously using other IV drugs. He reports intermittent fevers and chills. His last IV Drug use this morning. He normally injects meth into his leg and denies any other injection sites. Patient initially was not receptive for admission but was willing to stay 1 day for follow-up to his blood cultures. Patient has significant concerns with withdrawing and has voiced he was not interested in experiencing any withdrawal effects. Patient's mother at bedside and indicates that there is increased dynamic that if he is released from the hospital he is not welcome at their house and she made a statement that he would use as soon as he left the hospital and he agreed that would be the case. PMH includes IVDA. Does not take any other routine medications. No leukocytosis, no elevated lactate, negative procalcitonin. He received 1 LNS B in the ED. Bilateral lower extremity Doppler ultrasound performed negative for DVT. Bio fire negative. He is not tachycardic and normotensive in the ED. Patient will be admitted for further evaluation and management of his inguinal groin wounds and worsening cellulitis. He was started on IV Vancomycin, will transition to clindamycin plus ceftriaxone, MRSA screen and blood cultures pending, Consider infectious disease consult if no improvement. Will add clonidine and Bentyl and loperamide for withdrawal effects. Allergies Allergy/AdvReac Type Severity Reaction Status Date / Time chlorpromazine Allergy Severe facial Verified 09/25/23 11:59 [From Thorazine] swelling and agitation amoxicillin Allergy Intermediate leg and Verified 09/25/23 11:59 feet swelling Home Medications Medication Instructions Recorded Confirmed Type No Known Home Medications 09/25/23 09/25/23 History Past Med/Surg History Medical History (Updated 09/25/23 @ 13:33 by WEST Solomon) Opioid abuse with withdrawal Methamphetamine abuse Surgical History No pertinent past surgical history Social History Smoking Status: Current every day smoker Tobacco Type: Cigarettes Cigarettes Per Day: Half Pack; Do You Dip or Chew Tobacco: No; Hx Alcohol Use: No Hx Substance Use: Yes Last Used Substance: Hours (ago) Substance Use Type Other:: fentanyl Preferred Language: Pashto Communication Ability: Effective Fermenter Wine Required: No Beliefs That Will Affect Care: None Current Living Situation: Alone Other Information That Helps Us Care for You: No Feels Safe at Home: Yes Safety Concerns: Feels Safe At This Time Assistive Devices: None Review of Systems Review of Systems: Neuro: (-) Falls, trauma, slurred speech HEENT: (-) AL, dizziness, dysphagia, visual or auditory changes CV: (-) CP, palpitations, swelling Resp: (-) SOB GI: (-) appetite changes, N/V/D, bowel changes : (-) urinary changes Skin: (-) rashes Psych: (-) anxiety, depression Physical Exam Physical Exam: Neuro: AAOx4, PERRLA, no aphagia, memory changes, CNII-XII grossly intact. Drowsy, but interactive. HEENT: head normocephalic, moist mucus membranes CV: S1/S2, (-) M/G/R, (-) edema, cap refill < 3 seconds Resp: Lungs CTA in all mendez. On RA GI: Abdomen S/NT/ND, Ax4 bowel sounds, (-) CVA tenderness Musculoskeletal: 5/5 B/L UE strength, 5/5 B/L LE strength. No gait disturbance observed. Left upper thigh with three visible injection sites. Largest is quarter sized just below the L inguinal fold. Skin: (-) rashes , (-) erythema. Psych: euthymic mood Results & Data Results & Data Vital Signs (Past 12 Hours) Vital Signs Temp Pulse Pulse Resp BP BP Pulse Ox 09/25/23 11:02 76 09/25/23 10:43 78 18 135/73 99 09/25/23 08:50 36.3 C L 79 14 119/76 100 O2 Del Method 09/25/23 11:02 09/25/23 10:43 Room Air 09/25/23 08:50 Room Air Laboratory Results Short CBC 09/25/23 Range/Units 09:28 WBC 8.98 (4.8-10.8) K/ul Hgb 11.5 L (14.0-18.0) g/dl Hct 36.5 L (42.0-52.0) % Plt Count 342 (130-400) K/uL BMP 09/25/23 09:28 Sodium 137 Potassium 3.7 Chloride 98 Carbon Dioxide 32 BUN 12 Creatinine 0.97 Glucose 104 H Calcium 9.6 Liver Function 09/25/23 Range/Units 09:28 Total Bilirubin 0.4 (0.2-1.0) mg/dl AST 15 (13-39) U/L ALT 11 (7-52) U/L Alkaline Phosphatase 80 (34-104) U/L Albumin 4.5 (3.4-5.0) gm/dl Diagnostic Findings Chest X-Ray 09/25/23 09:01 XR chest 1V portable CLINICAL HISTORY: Cough. COMPARISON STUDY: Chest radiograph and chest CT July 02, 2023. FINDINGS: Lung volumes are normal. Lungs are clear. There is no pneumothorax or pleural effusion. Cardiac size is normal. Mediastinal contours are normal. There is no evidence for pulmonary edema. IMPRESSION: No acute cardiopulmonary findings. ACT 112: Negative or not required by law. Electronically signed by: Wesley Kelly M.D. 09/25/2023 9:48 AM Venous Doppler Study 09/25/23 10:33 BILATERAL LOWER EXTREMITY VENOUS DOPPLER CLINICAL HISTORY: Bilat lower leg IV drug use, palpable nodular like COMPARISON STUDY: Right lower extremity venous Doppler ultrasound July 02, 2023. Bilateral low-attenuation a venous Doppler ultrasound December 07, 2022. TECHNIQUE: Sonography of the deep venous system of the bilateral lower extremities was performed. Compression and augmentation were evaluated. FINDINGS: The bilateral common femoral, superficial femoral and popliteal veins were compressible. Augmentation was normal. Flow was shown within the deep calf vessels. Prominent left inguinal lymph node measures 4.7 x 1.1 x 3.6 cm. This node contains a fatty hilum. This node is likely benign. IMPRESSION: No evidence of deep venous thrombus within the bilateral lower extremities. ACT 112: Negative or not required by law. Electronically signed by: Wesley Kelly M.D. 09/25/2023 11:32 AM Code Status & VTE Plan Code Status Full Code in the event of cardiac or respiratory arrest VTE Prophylaxis Plan VTE Prophylaxis will be ordered: Yes Supervising Physician Co-Signing Physician Notes I have seen and discussed the case with the collaborating advanced practitioner. I agree with the above H&P. I have reviewed and confirmed the patients medical history, the findings on physical examination, and the patients diagnosis and treatment plan with John LOU and agree with the information documented. In short, Mr. Prajapati is a 32 year old gentleman with history of IV drug use (meth and fentanyl concurrently, no longer on methadone) who has frequent cellulitis and wounds from injection who presents with malaise and fatigue with increasing pain of left leg wound. Patient recently admitted with similar symptoms, and eventually transitioned to Clindamycin/CTX and discharged on keflex. He reports that his left legs improved and the area of ulceration he is presenting with is new. He recently was discontinued off of methadone 230mg because of simultaneous misuse of other medications--he states that he has felt feverish and uncomfortable since then, attrituing these symptoms to withdrawal from methadone and attempting to match the mg with other substances. Patient reluctant for admission, but encouraged to stay 1 day for follow up blood cultures. Patient last used fentanyl this am. GENERAL APPEARANCE: AxOx4, ill appearing, lethargic HEENT: NC, AT. MMM. EOMI, clear conjunctiva, oropharynx clear. NECK: Supple without lymphadenopathy. No stiffness or restricted ROM. HEART: Normal rate and regular rhythm, normal S1/S1, no m/r/g LUNGS: CTAB, moving air well. No crackles or wheezes are heard. ABDOMEN: Soft, nontender, nondistended with good bowel sounds heard. BACK: No CVAT, no obvious deformity. EXTREMITIES: bilateral non pitting lymphedematous changes in lower extremities, lymphedema and erythema of hands; Bilateral LAD in groin NEUROLOGICAL: Grossly nonfocal. Alert and oriented, moving all 4 extremities. CN not formally tested but appear grossly intact. Skin: dime-size ulceration just inferior to right inguinal crease, tender to palpation, no drainage, slight erythema surrounding #Right LLE ulceration #History of GAS Recommended IV antibiotics and follow up on blood cultures given recent history of GAS infection Lymphedema is chronic, likely secondary to sclerosing nature of IVDU, CTM #Polysubstance abuse #opioid withdrawal -Last used early this am, fentanyl IV -Clonidine prn for withdrawal symptoms -Lomitil for withdrawal induced abdominal pain Discussed cessation in depth/declined resources at this time Rest of plan as above I spent a total of 45 minutes coordinating, documenting, and providing care for this patient excluding time spent in the performance of separately billed services. All of the aforementioned completed outside of collaborating with the assigned advanced practitioner for a full treatment plan. I have reviewed the advanced practitioner's documentation, and I agree with, and take responsibility for the plan of care (4) Cellulitis of leg Laterality: unspecified laterality Qualified Code(s): L03.119 - Cellulitis of unspecified part of limb
--- OUTSIDE RECORDS SUMMARY | 2023-09-25 12:18 | External Medical Summary | Summary of Care ---
Author Name Unknown Organization [facility] Address [address] [facility] [place] [address] Phone [phone] Care Team Providers Care Weaving Inspector Name Role Phone iNr Lucio MD Primary Care Provider [phone] Encounter Details Date Type Department Care Team (Late st Contact Info) Description 07/26/2023 Telephone Family Practice [facility] [address] [place] [address] Nir Lucio MD [address] [place] [id number] Allergies Active Allergy Reactions Criticality Noted Date Comments Chlorpromazine Other (Please comment) 5 Facial Swelling, Agitation documented as of this encounter (statuses as of 07/26/2023) Medications Medication Sig Dispensed Refills Start Date [...] as of this encounter (statuses as of 07/26/2023) Active Problems Problem Noted Date Diagnosed Date Polysubstance abuse 06/12/2023 Methamphetamine abuse 03/06/2023 Acne necrotica 03/06/2023 IV drug abuse 02/07/2023 Tobacco use disorder 02/06/2023 Morbid obesity 08/30/2015 Chronic hepatitis C 02/04/2013 Overview: Followed by GI documented as of this encounter (statuses as of 07/26/2023) Resolved Problems Problem Noted Date Diagnosed Date Resolved Date History of intravenous drug use in remission 3 02/07/2023 Overview: On subutex Opioid use disorder, moderate, dependence 12/13/2017 01/25/2021 Bilateral carpal tunnel syndrome 07/04/2016 01/26/2021 Overview: + EMG 10/22/2013 - has been using braces w/ good effect. Cigarette smoker 08/30/2015 02/06/2023 Overview: Quit 02/2015 - resumed December 2015 Bipolar 2 disorder 08/30/2015 Overview: Followed by Dr. Vargas - [place] Dyshidrotic eczema 11/24/2014 7 Acne 11/24/2014 10/03/2016 Chewing tobacco use 03/04/2013 02/07/20 Opioid type dependence, continuous 03/04/2013 02/06/2023 Overview: H/O IVDA - on subutex Rash and nonspecific skin eruption 2007 10/03/2016 documented as of this encounter (statuses as of 07/26/2023) Immunizations Name Administration Dates Next Due TDAP (age 10 and older)(Boostrix) 01/26/2021 documented as of this encounter Social History Tobacco Use Types Packs/Day Years Used Date Smoking Tobacco: Every Day Cigarettes 0.3 7.6 Started: 01/03/2016 Smokeless Tobacco: Current Snuff Comments:1 [...] on file documented as of this encounter Miscellaneous Notes * Telephone Encounter - Kitty Christopher LPN - 07/26/2023 1:38 PM EST Called pt about MNHD-- Please keep pts appointment for today AND Sunday with PCP as of right now. Pt questions if medications from rehab center was sent to [facility] pharmacy after discharge. He is calling them to see if they can be transferred to [facility]. If they can not do so patient saidhe will be calling us back to see if provider here can send in cephalexin and pregabalin. Gave nurse line number to CB if needed. documented in this encounter Plan of Treatment Upcoming Encounters Date Type Department Care Team (Late st Contact Info) Description 07/26/2023 4:20 PM EST Office Visit [facility] ([place], [place]) [address] [address] Casie Serrano CRNP [address] [id number] 07/30/2023 11:00 AM EST Office Visit [facility] ([place] [place] [address] [address] Nir Lucio MD [address] [address] Health Maintenance Due Date Last Done Comments Pneumococcal Vaccine: Pediat rics (0 to 5 Years) and At-Risk Patients (6 to 64 Years) (1 of 2 - PCV) 1996 Hepatitis B (2 of 3 - 19+ 3- dose series) 03/08/2010 02/08/2010 Depression Screening 10/03/2017 10/03/2016 COVID-19 Vaccine (2 - 2022-2 4 season) 2023 11/06/2020 Influenza Vaccine (FLU shot) (#1) 2023 DTaP,Tdap,and Td Vaccines (2 - Td or Tdap) 01/26/2031 01/26/2021 GARDASIL-HPV IMMUNIZATION SERIES Aged Out No longer eligible based on patient's age to complete this topic MENINGOCOCCAL (MENACTRA/MENVEO) Aged Out No longer eligible based on patient's age to complete this topic documented as of this encounter Medical Devices Not on filedocumented as of this encounter Care Teams Weaving Inspector Relationship Specialty Start Date End Date Nir Lucio MD [address] [place] [address] PCP - General Family Medicine 09/29/21 documented as of this encounter
--- OUTSIDE RECORDS SUMMARY | 2023-09-25 12:18 | External Medical Summary | Summary of Care ---
Author Name Unknown Organization [facility] Address [address] [facility] [place] [address] Phone [phone] Care Team Providers Care All Round Logger Name Role Phone Nir Lucio MD Primary Care Provider [phone] Encounter Details Date Type Department Care Team (Late st Contact Info) Description 07/03/2023 Telephone Gastroenterology, [facility] [address] [place] [address] Valerie Trujillo CRNP [address] [place] [phone] Allergies Active Allergy Reactions Criticality Noted Date [...] 08/30/2015 Overview: Followed by Dr. Vargas - Enlighten [...] encounter Miscellaneous Notes * Telephone Encounter - Anabel Pierce OSA - 07/26/2023 2:52 PM EST Pt refused colonoscopy at this time, states that he is not currently having the dark stools. Pt is scheduled for the EGD in January. ART Saleem 07/26/2023 2:53 PM * Telephone Encounter - Valerie Trujillo CRNP - 07/03/2023 9:28 AM EST Admitted with pneumonia Please contact to arrange op egd/colon GERD, chronic anemia, chronic constipation, history of dark stool Will need a 2 day prep given his chronic constipation [facility] Perkins 07/03/2023 9:28 AM documented in this encounter Plan of Treatment Upcoming Encounters Date Type Department Care Team (Latest Contact Info) Description 07/26/2023 4:20 PM EST Office Visit Family [facility] [address] [address] Casie Serrano CRNP [address] [address] 07/30/2023 11:00 AM EST Office Visit Family Practice [facility] [address] [place] [address] Nir Lucio MD [address] [place] [address] 01/11/2024 9:30 AM EDT Hospital Encounter ENDO [facility], Endoscopy Room [facility] [address] [place] [phone] Enrrique Velasquez MD [address] [place] [address] 01/11/2024 9:30 AM EDT - 01/11/2024 10:00 AM EDT Surgery ENDO [facility], Endoscopy Room [facility] [address] [place] [phone] Enrrique Velasquez MD [address] [place] [address] ESOPHAGOGASTRODUODENOSCOPY (EGD), FLEXIBLE, TRANSORAL, DIAGNOSTIC Scheduled Orders Name Type Priority Associated Diagnoses Orde r Schedule EGD, FLEXIBLE, DIAGNOSTIC Procedures Routine Dark stools Chronic anemia Gastroesophageal reflux disease, unspecified whether esophagitis present Constipation, unspecified constipation type Ordered: 07/03/2023 COLONOSCOPY, DIAGNOSTIC (RECTUM) Procedures Routine Dark stools Chronic anemia Gastroesophageal reflux disease, unspecified whether esophagitis present Constipation, unspecified constipation type Ordered: 07/03/2023 Scheduled Procedures Name Priority Associated Diagnoses Date/Ti me ESOPHAGOGASTRODUODENOSCOPY ( EGD), FLEXIBLE, TRANSORAL, DIAGNOSTIC GERD (gastroesophageal reflux disease) 01/11/2024 9:30 AM EDT Health Maintenance Due Date Last Done Comments [...] as of this encounter Visit Diagnoses Diagnosis Dark stools- Primary Nonspecific abnormal finding in stool contents Chronic anemia Anemia, unspecified Gastroesophageal reflux disease, unspecified whether esophagitis present Constipation, unspecified constipation type GERD (gastroesophageal reflux disease) Esophageal reflux documented in this encounter Care Teams All Round Logger Relationship Specialty Start Date End Date Nir Lucio MD [address] [facility] [place] [address] PCP - General Family Medicine 09/29/21 documented as of this encounter
--- OUTSIDE RECORDS SUMMARY | 2023-09-25 12:18 | External Medical Summary | Summary of Care ---
Author Name Unknown Organization [facility] Address [address] [facility] [place] [address] Phone [phone] Care Team Providers Care Submarine Cable Equipment Technician Name Role Phone Nir Lucio MD Primary Care Provider [phone] Encounter Details Date Type Department Care Team (Late st Contact Info) Description 07/26/2023 Telephone Family Practice [facility] [address] [place] [address] Nir Lucio MD [address] [place] [phone] Allergies Active Allergy Reactions Criticality Noted Date [...] on file documented as of this encounter Plan of Treatment Upcoming Encounters Date Type Department Care Team (Latest Contact Info) Description 07/26/2023 4:20 PM EST Office Visit Family [facility] [address] [place] [address] Casie Serrano CRNP [address] [place] [address] 07/30/2023 11:00 AM EST Office Visit [facility] [address] [place] [address] Nir Lucio MD [address] [place] [address] 01/11/2024 9:30 AM EDT Hospital Encounter ENDO [facility], Endoscopy Room [facility] [address] [place] [phone] Enrrique Velasquez MD [address] [place] [address] 01/11/2024 9:30 AM EDT - 01/11/2024 10:00 AM EDT Surgery ENDO [facility], Endoscopy Room [facility] [address] [place] [phone] Enrrique Velasquez MD [address] [place] [address] ESOPHAGOGASTRODUODENOSCOPY (EGD), FLEXIBLE, TRANSORAL, DIAGNOSTIC Scheduled Procedures Name Priority Associated Diagnoses Date/Ti [...] filedocumented as of this encounter Care Teams Submarine Cable Equipment Technician Relationship Specialty Start Date End Date Nir Lucio MD [address] [place] [address] PCP - General Family Medicine 09/29/21 documented as of this encounter
--- OUTSIDE RECORDS SUMMARY | 2023-09-25 12:18 | External Medical Summary | Summary of Care ---
Author Name Unknown Organization [facility] Address [address] [facility] [place] [address] Phone [phone] Care Team Providers Care Loop Drier Operator Name Role Phone Nir Lucio MD Primary Care Provider [phone] Encounter Details Date Type Department Care Team (Late st Contact Info) Description 07/03/2023 Telephone Gastroenterology, [facility] [address] [place] [id number] Valerie Trujillo CRNP [address] [place] [id number] Allergies Active Allergy Reactions Criticality Noted Date Comments Chlorpromazine Other (Please comment) 5 Facial Swelling, Agitation documented as of this encounter (statuses as of 07/03/2023) Medications Medication Sig Dispensed Refills Start Date [...] as of this encounter (statuses as of 07/03/2023) Active Problems Problem Noted Date Diagnosed Date Polysubstance abuse 06/12/2023 Methamphetamine abuse 03/06/2023 Acne necrotica 03/06/2023 IV drug abuse 02/07/2023 Tobacco use disorder 02/06/2023 Morbid obesity 08/30/2015 Chronic hepatitis C 02/04/2013 Overview: Followed by GI documented as of this encounter (statuses as of 07/03/2023) Resolved Problems Problem Noted Date Diagnosed Date [...] 08/30/2015 Overview: Followed by Dr. Vargas - Jihanighten Dyshidrotic eczema 11/24/2014 7 Acne 11/24/2014 10/03/2016 Chewing tobacco use 03/04/2013 02/07/20 Opioid type dependence, continuous 03/04/2013 02/06/2023 Overview: H/O IVDA - on subutex Rash and nonspecific skin eruption 2007 10/03/2016 documented as of this encounter (statuses as of 07/03/2023) Immunizations Name Administration Dates Next Due TDAP [...] encounter Miscellaneous Notes * Telephone Encounter - Valerie Trujillo CRNP - 07/03/2023 9:28 AM EST Admitted with pneumonia Please contact to arrange op egd/colon GERD, chronic anemia, chronic constipation, history of dark stool Will need a 2 day prep given his chronic constipation [facility] 07/03/2023 9:28 AM documented in this encounter Plan of Treatment Scheduled Orders Name Type Priority Associated Diagnoses Orde r Schedule EGD, FLEXIBLE, DIAGNOSTIC Procedures Routine Dark stools Chronic anemia Gastroesophageal reflux disease, unspecified whether esophagitis present Constipation, unspecified constipation type Ordered: 07/03/2023 COLONOSCOPY, DIAGNOSTIC (RECTUM) Procedures Routine Dark stools Chronic anemia Gastroesophageal reflux disease, unspecified whether esophagitis present Constipation, unspecified constipation type Ordered: 07/03/2023 Health Maintenance Due Date Last Done Comments [...] whether esophagitis present Constipation, unspecified constipation type documented in this encounter Care Teams Loop Drier Operator Relationship Specialty Start Date End Date Nir Lucio MD [address] [place] [id number] PCP - General Family Medicine 09/29/21 documented as of this encounter
[2023-09-25] MEDS: VANCOMYCIN HCL 2,000 MG in SODIUM CHLORIDE 0.9% 500 ML IV ONE (12:44)
[2023-09-25] MEDS ORDERED: cloNIDine HCL 0.1 MG/24 HR TRANSDERM SYS TD PRN (12:51)
[2023-09-25] MEDS ORDERED: LOPERAMIDE HCL 2 MG CAP PO PRN (12:51)
[2023-09-25] MEDS ORDERED: cloNIDine HCL 0.1 MG TAB PO PRN (14:15)
[2023-09-25] MEDS ORDERED: DIPHENOXYLATE/ATROPINE 2.5/0.025MG TAB PO PRN (14:16)
[2023-09-25] MEDS: DICYCLOMINE HCL 10 MG CAP PO SCH (14:49)
[2023-09-25] MEDS: CLINDAMYCIN/D5W 600 MG/50 ML BAG IV SCH (14:49)
[2023-09-25] MEDS: cefTRIAXone SODIUM 2,000 MG in DEXTROSE 5 % MINI-B 50 ML IV SCH (15:46)
[2023-09-25] MEDS ORDERED: CHECK CLONIDINE PATCH PLACEMENT SCH (16:00)
[2023-09-25] MEDS: cloNIDine HCL 0.1 MG TAB PO SCH (16:00)
[2023-09-25] MEDS ORDERED: Nursing to Pharmacy Communication SCH (18:00)
[2023-09-25] MEDS: AMMONIUM LACTATE 12% LOTION 225 GM BTL EXT SCH (22:48)
[2023-09-26] MEDS: ACETAMINOPHEN 325 MG TAB PO PRN (02:44)
[2023-09-26] MEDS: cloNIDine HCL 0.1 MG TAB PO PRN (02:45)
[2023-09-26 07:58] LABS: Hematocrit (blood only) 30.6 % (42.0-52.0); Hemoglobin 9.9 g/dl (14.0-18.0); Mean Corpuscular Hemoglobin 27.3 pg (25.0-34.0); Mean Corpuscular Hgb Conc 32.4 g/dL (32.0-36.0); Mean Corpuscular Volume 84.5 fL (80.0-100.0); Mean Platelet Volume 9.4 fL (9.4-12.4); Platelet Count 303 K/uL (130-400); RDW Coefficient of Variation 13.6 % (11.5-14.5); RDW Standard Deviation 42.1 fL (36.4-46.3); Red Blood Count 3.62 M/uL (4.70-6.10); White Blood Count 6.81 K/ul (4.8-10.8)
[2023-09-26 08:14] LABS: Albumin Globulin Ratio 1.3 (0.9-2); Albumin Level 3.6 gm/dl (3.4-5.0); Bilirubin,Total 0.2 mg/dl (0.2-1.0); Calcium 9.1 mg/dl (8.6-10.3); Creatinine Clr Calc Pharmacy 124.7 ml/min; Est GFR (African American) 114.9 ml/min; Est GFR (Non-African American) 99.1 ml/min; Globulin 2.8 gm/dl (2.5-4.0); Magnesium 1.6 mg/dl (1.7-2.4); Phosphorus 4.9 mg/dl (2.5-4.9); Potassium 4.1 mmol/L (3.5-5.1); Total Protein 6.4 gm/dl (6.0-8.3)
--- NOTE | 2023-09-26 09:31 | Discharge Summary ---
Discharge Summary Date of Service September 26, 2023 Notes For Next Care Provider Encouraged cessation and offered resources, however, patient declined on multiple attempts Medication Changes From Visit Keflex 500mg QID for 7 days Admission HPI Per Admitting Provider Mr. Prajapati is a 32 year old male that presents to the ED for evaluation of the infection of his left leg. He unfortunately has a history of IV drug use which includes meth and fentanyl, currently . He recently stopped taking methadone cold turkey. He presents today with overall fatigue and pain on his worsening left leg wound. He was experiencing some swelling in his feet and his leg that persisted since July and he was treated with clindamycin and discharged home with Keflex. He reports that he is no longer taking methadone and stopped taking it cold turkey but while he was taking it he was simultaneously using other IV drugs. He reports intermittent fevers and chills. His last IV Drug use this morning. He normally injects meth into his leg and denies any other injection sites. Patient initially was not receptive for admission but was willing to stay 1 day for follow-up to his blood cultures. Patient has significant concerns with withdrawing and has voiced he was not interested in experiencing any withdrawal effects. Patient's mother at bedside and indicates that there is increased dynamic that if he is released from the hospital he is not welcome at their house and she made a statement that he would use as soon as he left the hospital and he agreed that would be the case. PMH includes IVDA. Does not take any other routine medications. No leukocytosis, no elevated lactate, negative procalcitonin. He received 1 LNS B in the ED. Bilateral lower extremity Doppler ultrasound performed negative for DVT. Bio fire negative. He is not tachycardic and normotensive in the ED. Patient will be admitted for further evaluation and management of his inguinal groin wounds and worsening cellulitis. He was started on IV Vancomycin, will transition to clindamycin plus ceftriaxone, MRSA screen and blood cultures pending, Consider infectious disease consult if no improvement. Will add clonidine and Bentyl and loperamide for withdrawal effects. Principal Dx & Hospital Course #1 = Principal Diagnosis (1) History of intravenous drug abuse: (2) Methadone use: (3) Opioid abuse with withdrawal: (4) Cellulitis of leg: Plan In short, Mr. Prajapati is a 32 year old gentleman with history of IV drug use (meth and fentanyl concurrently, no longer on methadone) who has frequent cellulitis and wounds from injection who presents with malaise and fatigue with increasing pain of left leg wound. Patient recently admitted with similar symptoms, and eventually transitioned to Clindamycin/CTX and discharged on keflex. He reports that his left legs improved and the area of ulceration he is presenting with is new. He recently was discontinued off of methadone 230mg because of simultaneous misuse of other medications--he states that he has felt feverish and uncomfortable since then, attrituing these symptoms to withdrawal from methadone and attempting to match the mg with other substances. Patient reluctant for admission, but encouraged to stay 1 day for follow up blood cultures. Blood cultures negative after 24 hours and patient adament for discharge. Given no leukocytosis, no fevers, or other inpatient nedded, patient discharged with course of keflex for superimposed cellutlitis around areas of IVDU. #Right LLE ulceration #History of GAS Recommended IV antibiotics and follow up on blood cultures given recent history of GAS infection Lymphedema is chronic, likely secondary to sclerosing nature of IVDU, CTM -Keflex upon discharge #Polysubstance abuse #opioid withdrawal -Last used early this am, fentanyl IV -Utilized clonidine and bentyl for withdrawal symptoms while admitted Discussed cessation in depth/declined resources at this time On day of discharge, patient was ambulating, eating, and verbalized unders tanding of condition. Discharge Exam Constitutional WD/WN, vitals as above agitated Respiratory normal respiratory effort, lungs clear to auscultation Cardiovascular RRR, no murmur, no edema Skin bilateral erythema of hands, chronic nonpitting edema of bilateral lower extremities with dusky discoloration Updated Medication List Medication Instructions Recorded Confirmed Type cephalexin 500 mg capsule 500 mg PO Q6H 7 days #28 caps 09/26/23 Rx Hospital Stay Data Consultations 09/25/23 12:03 ED Decision to Admit Stat Diagnostic Imagining Performed 09/25/23 10:33 US venous doppler LE BI Stat Pending Results Patient Have Any Pending Studies at Discharge: No Discharge Instructions Given to Patient (Per Discharging Provider) It is imperative you explore your options for abstinence from IV substances and from illicit drugs as a whole. The injection of these substances will continue to destroy local tissue and the way your body drains fluid, leading to persistent infection, swelling of extremities, and potentially blood clots. You will be sent home with a course of antibiotics for localized infection/cellulitis -Keflex, 1 tablet every 6 hours until course complete. Please take first tablet upon picking up antibiotic from pharmacy Total Time Total Time Spent Total Time Spent (In Minutes): 35
[2023-09-26] MEDS: MAGNESIUM SULFATE / D5W 1 GM/100 ML BAG IV SCH (10:01)
== END 2023-09-26 10:03 | disposition home or self-care (01) | DRG 603 ==
LOC: ED 08:40 → 2N 12:05

== ENCOUNTER 2023-11-02 22:53 | Observation (INO) ==
--- NOTE | 2023-11-02 23:36 | Emergency Department Note ---
Impression & Plan Generalized weakness, Acute pain of right knee, Opioid abuse with withdrawal, Acute hypokalemia ED Provider Note HISTORY OF PRESENT ILLNESS: Patient is a 32-year-old male presenting with confusion and right knee pain. Patient reports that last night he was at a constitution party and was injecting methamphetamine and Xanax and snorting fentanyl and he states that "my friends gave me Narcan like 5 times." He states that he started have significant withdrawal symptoms throughout the day today and he did more fentanyl. He states that he does 1 to 3 g of fentanyl daily. He states that he also injects methamphetamine. He is interested in getting clean, and states that he was recently excepted to a rehab facility and was supposed to call them today, but reports "I was sleeping most the day because I felt so horrible." He does report that yesterday he was moving a TV when his right leg gave out and he landed on his right knee and struck his head. He reports he injects into his forearms and into his femoral vein and artery. Patient's family members present at bedside and reports that she went to check on the patient today and his breathing did not seem appropriate. She reports he seems very slow to respond and does not seem like his normal self. Patient denies any chest pain or shortness of breath. No reported fevers. Patient is not suicidal or homicidal. ROS: as above PHYSICAL EXAM: Constitutional: Patient appears in no acute distress. HENT: Head: Normocephalic and atraumatic. Eyes: EOMI, PERRL Mouth/Throat: Mucous membranes moist. Neck: Trachea midline. Neck supple. Musculoskeletal: Right knee is swollen and has diffuse ecchymosis to the anterior knee. Patient is able to flex and extend, but does complain of pain. Intact DP pulses. Skin: Warm and dry. Patient has scabbed over previous track lara on the bilateral forearms and anterior cubital fossa. Psychiatric: Appropriate mood and affect for situation. Neurological: Alert and keenly responsive. CN II-XII grossly intact, moving all extremities equally and fully. MDM: - Vitals signs showed tachycardia. - History obtained via patient. History as above. - Chronic conditions affecting care: IVDU - Differential diagnoses include, but are not limited to: opioid withdrawal; bacteremia; UTI; viral syndrome - Order placed for continuous cardiac monitoring. At this time, monitor showed rate of 75 bpm with normal sinus rhythm, per my interpretation. - External medical records reviewed. Discharge summary dated 09/26/2023 was reviewed. Patient was admitted at that time for infection of his left leg. He has a history of IV drug use with meth and fentanyl. - EKG interpreted by myself showed normal sinus rhythm. Rate 92 bpm. QT 334. No acute ischemic changes. - Laboratory workup interpreted by myself showed normal WBC; normal PT/INR; slight hypokalemia (K 3.4); hyperglycemia (glucose 120); normal troponin; normal procalcitonin; normal lactate; negative salicylate/acetaminophen levels; negative ethanol - Blood cultures obtained - Xray right knee negative for fracture, per my interpretation - CT head wo contrast negative for acute intracranial pathology - COVID negative - Patient given 1L NS and 10 mEq IV potassium in ER. - Patient is interested in getting clean from his IV drug use. However, he is high risk for withdrawal, given his significant fentanyl use (1-3 g). - UA and UDS ordered. - Discussion was had with onsite case manager about patient's case and need for admission - Hospitalist consulted for admission [facility] ASSESSMENT AND PLAN: Diagnosis: generalized weakness; acute right knee pain; acute opioid withdrawal; acute hypokalemia Plan: admit Past Med/Surg History Problem List (Updated 11/03/23 @ 01:51 by Lilia Saab MD) Acute hypokalemia (Acute) Opioid abuse with withdrawal (Acute) Acute pain of right knee (Acute) Generalized weakness (Acute) Leg wound, left (Acute) Opioid abuse with withdrawal Sepsis Left lower lobe pneumonia (Acute) Acute hyponatremia (Acute) History of intravenous drug abuse (Acute) Cellulitis of leg (Acute) Medical History (Updated 11/03/23 @ 01:51 by Lilia Saab MD) Methadone use Methamphetamine abuse Surgical History No pertinent past surgical history Social History Smoking Status: Current every day smoker Tobacco Type: Cigarettes Cigarettes Per Day: Half Pack; Do You Dip or Chew Tobacco: No; Hx Alcohol Use: No Hx Substance Use: Yes Last Used Substance: Hours (ago) Substance Use Type Other:: fentanyl Preferred Language: Romanian Communication Ability: Effective Utility Gelatin Maker Required: No Beliefs That Will Affect Care: None Current Living Situation: Alone Feels Safe at Home: Yes Assistive Devices: None Allergies Allergies Allergy/AdvReac Type Severity Reaction Status Date / Time chlorpromazine Allergy Severe facial Verified 11/03/23 01:55 [From Thorazine] swelling and agitation amoxicillin Allergy Intermediate leg and Verified 11/03/23 01:55 feet swelling Home Meds Home Medications Medication Instructions Recorded Confirmed Unobtainable 11/03/23 11/03/23 Results & Data (ED) Vital Signs Vital Signs - 24 hr 11/02/23 22:56 11/02/23 23:24 11/02/23 23:52 Temperature 36.5 C Temperature Source Temporal Artery Scan Pulse Rate 98 H 91 H Pulse Rate [Right Finger] 92 H Respiratory Rate 16 12 Respiratory Effort / Characteristics Non-Labored Spontaneous Non-Labored Spontaneous Respiratory Depth Normal Normal Respiratory Pattern Regular Blood Pressure 130/90 Blood Pressure [Right Arm] 108/57 L Blood Pressure Mean 103 Blood Pressure Mean [Right Arm] 74 Pulse Oximetry 98 96 Oxygen Delivery Method Room Air Room Air Sepsis Recent Fever Within 48 Hours No Sepsis New/Unexplained Change in Mental Status No Sepsis Action Taken by Nursing No Action Required 11/03/23 00:14 11/03/23 00:23 11/03/23 00:32 Temperature Temperature Source Pulse Rate Pulse Rate [Right Finger] 79 85 92 H Respiratory Rate 19 12 12 Respiratory Effort / Characteristics Non-Labored Spontaneous Non-Labored Spontaneous Respiratory Depth Normal Normal Respiratory Pattern Blood Pressure Blood Pressure [Right Arm] 109/58 L 114/57 L 109/55 L Blood Pressure Mean Blood Pressure Mean [Right Arm] 75 76 73 Pulse Oximetry 95 92 92 Oxygen Delivery Method Room Air Room Air Room Air Sepsis Recent Fever Within 48 Hours Sepsis New/Unexplained Change in Mental Status Sepsis Action Taken by Nursing 11/03/23 01:00 11/03/23 01:28 Temperature Temperature Source Pulse Rate Pulse Rate [Right Finger] 79 75 Respiratory Rate 12 12 Respiratory Effort / Characteristics Respiratory Depth Respiratory Pattern Blood Pressure Blood Pressure [Right Arm] 108/51 L 103/55 L Blood Pressure Mean Blood Pressure Mean [Right Arm] 70 71 Pulse Oximetry 93 98 Oxygen Delivery Method Room Air Room Air Sepsis Recent Fever Within 48 Hours Sepsis New/Unexplained Change in Mental Status Sepsis Action Taken by Nursing Laboratory Data 11/03/23 00:09 11/03/23 00:09 Lab Results 11/02/23 11/03/23 Range/Units 23:25 00:09 WBC 6.97 (4.8-10.8) K/ul RBC 4.03 L (4.70-6.10) M/uL Hgb 11.1 L (14.0-18.0) g/dl Hct 33.9 L (42.0-52.0) % MCV 84.1 (80.0-100.0) fL MCH 27.5 (25.0-34.0) pg MCHC 32.7 (32.0-36.0) g/dL RDW Std Deviation 41.1 (36.4-46.3) fL RDW Coeff of Randa 13.2 (11.5-14.5) % Plt Count 232 (130-400) K/uL MPV 8.9 L (9.4-12.4) fL Immature Gran % (Auto) 0.3 % Neut % (Auto) 72.9 % Lymph % (Auto) 18.7 % [place] % (Auto) 6.5 % Eos % (Auto) 1.3 % Baso % (Auto) 0.3 % Neut # (Auto) 5.09 (1.40-6.50) K/uL Lymph # (Auto) 1.30 (1.20-3.40) K/uL [place] # (Auto) 0.45 (0.11-0.59) K/uL Eos # (Auto) 0.09 (0.00-0.50) K/uL Baso # (Auto) 0.02 (0.00-0.20) K/uL Immature Gran # (Auto) 0.02 (0.01-0.20) K/uL PT 10.9 (9.0-12.0) Seconds INR 1.0 (0.9-1.1) Sodium 139 (136-145) mmol/L Potassium 3.4 L (3.5-5.1) mmol/L Chloride 101 (98-107) mmol/L Carbon Dioxide 34 H (21-32) mmol/L Anion Gap 4 (3-11) BUN 10 (6-23) mg/dl Creatinine 0.84 (0.6-1.4) mg/dl Est Cr Clr Drug Dosing 153.3 ml/min Est GFR ( Amer) 134.3 ml/min Est GFR (Non-Af Amer) 115.9 ml/min BUN/Creatinine Ratio 11.9 (10-20) Glucose 120 H (70-99(Fasting)) mg/dl Lactate 1.7 (0.4-2.0) mmol/L Calcium 8.6 (8.6-10.3) mg/dl Magnesium 1.8 (1.7-2.4) mg/dl Total Bilirubin 0.4 (0.2-1.0) mg/dl AST 13 (13-39) U/L ALT 10 (7-52) U/L Alkaline Phosphatase 62 (34-104) U/L Troponin I High Sens < 2.3 (0-20) pg/ml Total Protein 6.3 (6.0-8.3) gm/dl Albumin 3.6 (3.4-5.0) gm/dl Globulin 2.7 (2.5-4.0) gm/dl Albumin/Globulin Ratio 1.3 (0.9-2) Procalcitonin < 0.02 (0-0.5) ng/ml Salicylates < 3.0 L (3.0-30) mg/dl Acetaminophen 5 L (10-30) ug/ml Ethyl Alcohol mg/dL < 10.0 (<10.0) mg/dl SARS-CoV-2, RNA, NAAT NEGATIVE (NEGATIVE) Administered Medications Sodium Chloride (Nss) 1,000 mls @ 999 mls/hr IV .Q1H1M ONE Stop: 11/03/23 02:28 Last Admin: 11/03/23 02:00 Dose: 999 mls/hr Documented By: NOE Imaging Data Radiologist's Impression: Head CT 11/02/23 23:31 Exam(s): CT HEAD Without Contrast EXAM: CT Head Without Intravenous Contrast CLINICAL HISTORY: Reason for exam: fell; struck head. TECHNIQUE: Axial computed tomography images of the head/brain without intravenous contrast. CTDI is 38.17 mGy and DLP is 703.85 mGy-cm. Automated exposure control was utilized for the study. A dose lowering technique was utilized adhering to the principles of ALARA. COMPARISON: No relevant prior studies available. FINDINGS: No acute intracranial hemorrhage. No midline shift or mass effect. The territorial walsh-white matter differentiation is maintained throughout. The ventricles and sulci are commensurate with age. The visualized orbits appear grossly unremarkable. The calvarium is intact. The visualized paranasal sinuses and mastoid air cells are grossly clear. IMPRESSION: No acute intracranial hemorrhage, midline shift, or mass effect. Electronically signed by: Lyle Melendez MD 11/03/23 01:59 AM Discharge Plan Visit Data Chief Complaint: Overdose (Accidental) Stated Complaint: OVERDOSE, FETNAL/XANAX/ETC, ACCIDENTAL ED Provider: Lilia Saab Discharge Problem: Generalized weakness, Acute pain of right knee, Opioid abuse with withdrawal, Acute hypokalemia Forms Stand Alone Forms: My [facility] Prescriptions Prescriptions: No Action Unobtainable Rx Instructions: PT UNABLE TO ANSWER QUESTIONS AT THIS TIME. Referrals Referrals: Nir Lucio MD [Primary Care Provider] -
[2023-11-03 00:32] LABS: Basophils # (auto) 0.02 K/uL (0.00-0.20); Basophils % (auto) 0.3 %; Eosinophils # (auto) 0.09 K/uL (0.00-0.50); Eosinophils % (auto) 1.3 %; Hematocrit (blood only) 33.9 % (42.0-52.0); Hemoglobin 11.1 g/dl (14.0-18.0); Immature Granulocytes # (auto) 0.02 K/uL (0.01-0.20); Immature Granulocytes % (auto) 0.3 %; Lymphocytes % (auto) 18.7 %; Mean Corpuscular Hemoglobin 27.5 pg (25.0-34.0); Mean Corpuscular Hgb Conc 32.7 g/dL (32.0-36.0); Mean Corpuscular Volume 84.1 fL (80.0-100.0); Mean Platelet Volume 8.9 fL (9.4-12.4); Monocytes # (auto) 0.45 K/uL (0.11-0.59); Monocytes % (auto) 6.5 %; Neutrophils # (auto) 5.09 K/uL (1.40-6.50); Neutrophils % (auto) 72.9 %; Platelet Count 232 K/uL (130-400); RDW Coefficient of Variation 13.2 % (11.5-14.5); RDW Standard Deviation 41.1 fL (36.4-46.3); Red Blood Count 4.03 M/uL (4.70-6.10); White Blood Count 6.97 K/ul (4.8-10.8)
[2023-11-03 00:42] LABS: Acetaminophen 5 ug/ml (10-30); Salicylate < 3.0 mg/dl (3.0-30)
[2023-11-03 00:44] LABS: Alanine Aminotransferase 10 U/L (7-52); Albumin Globulin Ratio 1.3 (0.9-2); Albumin Level 3.6 gm/dl (3.4-5.0); Alkaline Phosphatase 62 U/L (34-104); Anion Gap 4 (3-11); Aspartate Aminotransferase 13 U/L (13-39); BUN Creatinine Ratio 11.9 (10-20); Bilirubin,Total 0.4 mg/dl (0.2-1.0); Blood Urea Nitrogen 10 mg/dl (6-23); Calcium 8.6 mg/dl (8.6-10.3); Carbon Dioxide 34 mmol/L (21-32); Chloride 101 mmol/L (98-107); Creatinine Clr Calc Pharmacy 153.3 ml/min; Est GFR (African American) 134.3 ml/min; Est GFR (Non-African American) 115.9 ml/min; Globulin 2.7 gm/dl (2.5-4.0); Glucose 120 mg/dl (70-99(Fasting)); Magnesium 1.8 mg/dl (1.7-2.4); Potassium 3.4 mmol/L (3.5-5.1); Sodium 139 mmol/L (136-145); Total Protein 6.3 gm/dl (6.0-8.3)
[2023-11-03 00:51] LABS: Prothrombin Time 10.9 Seconds (9.0-12.0)
[2023-11-03 00:52] LABS: Troponin I High Sensitivity < 2.3 pg/ml (0-20)
[2023-11-03] MEDS: SODIUM CHLORIDE 0.9% 1,000 ML IV ONE (02:00)
--- NOTE | 2023-11-03 02:00 | CT Scan Report ---
Exam(s): CT HEAD Without Contrast EXAM: CT Head Without Intravenous Contrast CLINICAL HISTORY: Reason for exam: fell; struck head. TECHNIQUE: Axial computed tomography images of the head/brain without intravenous contrast. CTDI is 38.17 mGy and DLP is 703.85 mGy-cm. Automated exposure control was utilized for the study. A dose lowering technique was utilized adhering to the principles of ALARA. COMPARISON: No relevant prior studies available. FINDINGS: No acute intracranial hemorrhage. No midline shift or mass effect. The territorial walsh-white matter differentiation is maintained throughout. The ventricles and sulci are commensurate with age. The visualized orbits appear grossly unremarkable. The calvarium is intact. The visualized paranasal sinuses and mastoid air cells are grossly clear. IMPRESSION: No acute intracranial hemorrhage, midline shift, or mass effect. Electronically signed by: Lyle Melendez MD 11/03/23 01:59 AM
[2023-11-03] MEDS: POTASSIUM CHLORIDE / WTR 10 MEQ/100 ML PLCT IV ONE (02:53)
--- NOTE | 2023-11-03 04:13 | History & Physical Report ---
Date of Service November 03, 2023 Assessment & Plan (1) Encephalopathy: Plan: History of substance abuse Traumatic right knee swelling rule out bony injury bilateral LE swelling (possibly chronic, lymphedema as per documentation from last admission), rule out DVT History GERD, not on maintenance medication chronic anemia, hemoglobin at baseline HCV status post Mavyret Rx mood disorder, not on maintenance medications, patient friend unaware of suicidality Hypokalemia possibly from decreased p.o. intake Hyperglycemia rule out DM ongoing tobacco abuse OBS Medical telemetry Follow urine tox Obtain history from patient once more awake. replace potassium Follow official right knee x-ray results LE venous Dopplers rule out DVT Check hemoglobin A1c Nicotine patch as needed Social service re: discharge planning, rehab placement DVT prophylaxis. Lovenox subcu Full code Contact persons for patient include: Mr. Vimal Prajapati (father), contact #[phone] Ms. Tanja Anderson (friend), contact #[phone] Text document was generated using [employer] voice recognition software. It may contain grammatical or spelling errors. Kindly contact undersigned for clarification of any documentation item in question. History of Present Illness Chief Complaint: Overdose, want to go to rehab as per patient friend Primary Care Provider: Nir Lucio MD History obtained from patient friend and records. Unable to obtain history from patient secondary to obtunded state. Medical history significant for chronic pain, history IVDU, HCV status post Mavyret Rx, GERD, mood disorder, chronic anemia (baseline hemoglobin 11-12), ongoing tobacco abuse. Last confinement September 2023 right lower extremity ulceration status post antibiotic Rx and polysubstance abuse. Patient discharged on Keflex course. Has not been to PCP's office recently. Patient was at a drug democrat 2 nights ago. Reported consumption of methamphetamine, Xanax, and fentanyl drugs. Had to be given given multiple doses of Narcan by his buddies because of overdose. Patient was moving a television yesterday when he felt his right leg gave out. Subsequent fall with head and right knee trauma. No LOC. Patient called friend to pick him up at another friend's place. Patient had verbalized intent to go to rehab facility to get clean. Patient noted by friend to have decreased responsiveness. Patient friend unaware of suicidal intent. Patient brought to ER for evaluation. 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 Allergies Allergy/AdvReac Type Severity Reaction Status Date / Time chlorpromazine Allergy Severe facial Verified 11/03/23 01:55 [From Thorazine] swelling and agitation amoxicillin Allergy Intermediate leg and Verified 11/03/23 01:55 feet swelling Home Medications Medication Instructions Recorded Confirmed Type No Known Home Medications 11/03/23 11/03/23 History Past Med/Surg History Problem List (Updated 11/03/23 @ 09:28 by Jericho Canseco MD) Encephalopathy Acute hypokalemia (Acute) Opioid abuse with withdrawal (Acute) Acute pain of right knee (Acute) Generalized weakness (Acute) Leg wound, left (Acute) Opioid abuse with withdrawal Sepsis Left lower lobe pneumonia (Acute) Acute hyponatremia (Acute) History of intravenous drug abuse (Acute) Cellulitis of leg (Acute) Medical History (Updated 11/03/23 @ 09:28 by Jericho Canseco MD) Methadone use Methamphetamine abuse Surgical History No pertinent past surgical history Social History Smoking Status: Current every day smoker Tobacco Type: Cigarettes Cigarettes Per Day: Half Pack; Do You Dip or Chew Tobacco: No; Hx Alcohol Use: No Hx Substance Use: Yes Last Used Substance: Hours (ago) Substance Use Type Other:: fentanyl Preferred Language: Burkinan Communication Ability: Effective Window Covering Sales Consultant Required: No Beliefs That Will Affect Care: None Current Living Situation: Alone Feels Safe at Home: Yes Assistive Devices: None Review of Systems Review of Systems: Could not be reliably obtained secondary to obtunded state Physical Exam Physical Exam: GENERAL: Obtunded, no respiratory distress SKIN: pallor, warm HEENT: Pale palpebral conjunctivae, no ptosis, dry buccal mucosa NECK : Supple, no tenderness CHEST : CTA, no tenderness HEART : RRR, no obvious murmurs ABDOMEN: Some distention, nontender EXTREMITIES : Multiple track lara over extremities, bilateral LE swelling, tender right knee swelling NEUROLOGIC : Obtunded, no facial asymmetry, gait and stance not assessed Results & Data Results & Data Vital Signs (Past 12 Hours) Vital Signs Temp Pulse Pulse Resp BP BP Pulse Ox 11/03/23 03:19 74 11/03/23 02:12 76 16 112/58 L 100 11/03/23 02:00 85 14 99 11/03/23 01:57 80 12 100 11/03/23 01:39 78 14 98 11/03/23 01:28 75 12 103/55 L 98 11/03/23 01:12 81 12 92 11/03/23 01:00 79 12 108/51 L 93 11/03/23 00:32 92 H 12 109/55 L 92 11/03/23 00:27 91 H 12 92 11/03/23 00:23 85 12 114/57 L 92 11/03/23 00:14 79 19 109/58 L 95 11/03/23 00:00 91 H 13 100 11/03/23 00:00 109/58 L 11/02/23 23:57 85 14 97 11/02/23 23:52 92 H 12 108/57 L 96 11/02/23 23:33 91 H 14 11/02/23 23:24 91 H 11/02/23 22:57 98 11/02/23 22:56 36.5 C 98 H 16 130/90 98 O2 Del Method 11/03/23 03:19 11/03/23 02:12 11/03/23 02:00 11/03/23 01:57 11/03/23 01:39 11/03/23 01:28 Room Air 11/03/23 01:12 11/03/23 01:00 Room Air 11/03/23 00:32 Room Air 11/03/23 00:27 11/03/23 00:23 Room Air 11/03/23 00:14 Room Air 11/03/23 00:00 11/03/23 00:00 11/02/23 23:57 11/02/23 23:52 Room Air 11/02/23 23:33 11/02/23 23:24 11/02/23 22:57 11/02/23 22:56 Room Air Laboratory Results Laboratory Results WBC 6.97 K/ul (4.8-10.8) 11/03/23 00:09 RBC 4.03 M/uL (4.70-6.10) L 11/03/23 00:09 Hgb 11.1 g/dl (14.0-18.0) L 11/03/23 00:09 Hct 33.9 % (42.0-52.0) L 11/03/23 00:09 MCV 84.1 fL (80.0-100.0) 11/03/23 00:09 MCH 27.5 pg (25.0-34.0) 11/03/23 00:09 MCHC 32.7 g/dL (32.0-36.0) 11/03/23 00:09 RDW Std Deviation 41.1 fL (36.4-46.3) 11/03/23 00:09 RDW Coeff of Randa 13.2 % (11.5-14.5) 11/03/23 00:09 Plt Count 232 K/uL (130-400) 11/03/23 00:09 MPV 8.9 fL (9.4-12.4) L 11/03/23 00:09 Immature Gran % (Auto) 0.3 % 11/03/23 00:09 Neut % (Auto) 72.9 % 11/03/23 00:09 Lymph % (Auto) 18.7 % 11/03/23 00:09 Nye % (Auto) 6.5 % 11/03/23 00:09 Eos % (Auto) 1.3 % 11/03/23 00:09 Baso % (Auto) 0.3 % 11/03/23 00:09 Neut # (Auto) 5.09 K/uL (1.40-6.50) 11/03/23 00:09 Lymph # (Auto) 1.30 K/uL (1.20-3.40) 11/03/23 00:09 Nye # (Auto) 0.45 K/uL (0.11-0.59) 11/03/23 00:09 Eos # (Auto) 0.09 K/uL (0.00-0.50) 11/03/23 00:09 Baso # (Auto) 0.02 K/uL (0.00-0.20) 11/03/23 00:09 Immature Gran # (Auto) 0.02 K/uL (0.01-0.20) 11/03/23 00:09 PT 10.9 Seconds (9.0-12.0) 11/03/23 00:09 INR 1.0 (0.9-1.1) 11/03/23 00:09 Sodium 139 mmol/L (136-145) 11/03/23 00:09 Potassium 3.4 mmol/L (3.5-5.1) L 11/03/23 00:09 Chloride 101 mmol/L (98-107) 11/03/23 00:09 Carbon Dioxide 34 mmol/L (21-32) H 11/03/23 00:09 Anion Gap 4 (3-11) 11/03/23 00:09 BUN 10 mg/dl (6-23) 11/03/23 00:09 Creatinine 0.84 mg/dl (0.6-1.4) 11/03/23 00:09 Est Cr Clr Drug Dosing 153.3 ml/min 11/03/23 00:09 Est GFR ( Amer) 134.3 ml/min 11/03/23 00:09 Est GFR (Non-Af Amer) 115.9 ml/min 11/03/23 00:09 BUN/Creatinine Ratio 11.9 (10-20) 11/03/23 00:09 Glucose 120 mg/dl (70-99(Fasting)) H 11/03/23 00:09 Lactate 1.7 mmol/L (0.4-2.0) 11/03/23 00:09 Calcium 8.6 mg/dl (8.6-10.3) 11/03/23 00:09 Magnesium 1.8 mg/dl (1.7-2.4) 11/03/23 00:09 Total Bilirubin 0.4 mg/dl (0.2-1.0) 11/03/23 00:09 AST 13 U/L (13-39) 11/03/23 00:09 ALT 10 U/L (7-52) 11/03/23 00:09 Alkaline Phosphatase 62 U/L (34-104) 11/03/23 00:09 Troponin I High Sens < 2.3 pg/ml (0-20) 11/03/23 00:09 Total Protein 6.3 gm/dl (6.0-8.3) 11/03/23 00:09 Albumin 3.6 gm/dl (3.4-5.0) 11/03/23 00:09 Globulin 2.7 gm/dl (2.5-4.0) 11/03/23 00:09 Albumin/Globulin Ratio 1.3 (0.9-2) 11/03/23 00:09 Procalcitonin < 0.02 ng/ml (0-0.5) 11/03/23 00:09 Salicylates < 3.0 mg/dl (3.0-30) L 11/03/23 00:09 Acetaminophen 5 ug/ml (10-30) L 11/03/23 00:09 Ethyl Alcohol mg/dL < 10.0 mg/dl (<10.0) 11/03/23 00:09 SARS-CoV-2, RNA, NAAT NEGATIVE (NEGATIVE) 11/02/23 23:[address] 11/02/23 23:31 Exam(s): CT HEAD Without Contrast EXAM: CT Head Without Intravenous Contrast CLINICAL HISTORY: Reason for exam: fell; struck head. TECHNIQUE: Axial computed tomography images of the head/brain without intravenous contrast. CTDI is 38.17 mGy and DLP is 703.85 mGy-cm. Automated exposure control was utilized for the study. A dose lowering technique was utilized adhering to the principles of ALARA. COMPARISON: No relevant prior studies available. FINDINGS: No acute intracranial hemorrhage. No midline shift or mass effect. The territorial walsh-white matter differentiation is maintained throughout. The ventricles and sulci are commensurate with age. The visualized orbits appear grossly unremarkable. The calvarium is intact. The visualized paranasal sinuses and mastoid air cells are grossly clear. IMPRESSION: No acute intracranial hemorrhage, midline shift, or mass effect. Electronically signed by: Lyle Melendez MD 11/03/23 01:59 AM Diagnostic Findings EKG as per my interpretation : Rate 90, NSR, normal axis, no ischemia
[2023-11-03] MEDS ORDERED: hydrOXYzine HCl 10 MG TAB PO PRN (04:18)
[2023-11-03] MEDS ORDERED: NSS + 20MEQ KCL 20 MEQ/1,000 ML BAG IV ONE (04:21)
[2023-11-03] MEDS: ALBUMIN 25% 25 GM/100 ML VIAL IV STA (05:15)
[2023-11-03 06:31] LABS: Basophils # (auto) 0.03 K/uL (0.00-0.20); Basophils % (auto) 0.6 %; Eosinophils # (auto) 0.19 K/uL (0.00-0.50); Eosinophils % (auto) 4.1 %; Hematocrit (blood only) 31.6 % (42.0-52.0); Hemoglobin 10.3 g/dl (14.0-18.0); Immature Granulocytes # (auto) 0.01 K/uL (0.01-0.20); Immature Granulocytes % (auto) 0.2 %; Lymphocytes # (auto) 1.39 K/uL (1.20-3.40); Lymphocytes % (auto) 30.1 %; Mean Corpuscular Hemoglobin 27.2 pg (25.0-34.0); Mean Corpuscular Hgb Conc 32.6 g/dL (32.0-36.0); Mean Corpuscular Volume 83.6 fL (80.0-100.0); Mean Platelet Volume 9.9 fL (9.4-12.4); Monocytes # (auto) 0.43 K/uL (0.11-0.59); Monocytes % (auto) 9.3 %; Neutrophils # (auto) 2.57 K/uL (1.40-6.50); Neutrophils % (auto) 55.7 %; Platelet Count 230 K/uL (130-400); RDW Coefficient of Variation 13.2 % (11.5-14.5); RDW Standard Deviation 40.2 fL (36.4-46.3); Red Blood Count 3.78 M/uL (4.70-6.10); White Blood Count 4.62 K/ul (4.8-10.8)
[2023-11-03 07:51] LABS: Estimated Average Glucose 105 mg/dl; Hemoglobin A1C 5.3 % (4.5-5.6)
--- NOTE | 2023-11-03 08:12 | XRay Report ---
XR chest 1V portable HISTORY: genearlized weakness COMPARISON: Chest 09/25/2023. FINDINGS: There are low lung volumes. No pneumothorax. No pleural effusions. The cardiac silhouette i s mildly enlarged. Mild central pulmonary vascular congestion without overt edema. There are patchy r ight lower lobe airspace opacities which are new compared the prior study. IMPRESSION: 1. Right lower lobe airspace opacities. This likely represents a pneumonia. 1-2 month chest x-ray fol low-up can be performed to ensure resolution. 2. Cardiomegaly and mild congestive change. ACT 112: Negative or not required by law. Electronically signed by: Edilson Bailey M.D. 11/03/2023 8:11 AM
--- NOTE | 2023-11-03 08:12 | XRay Report ---
XR knee RT 1 or 2V routine CLINICAL HISTORY: R knee pain s/p fall COMPARISON STUDY: Right knee 05/15/2023. FINDINGS: There is moderate right knee effusion. There is mild anterior soft tissue swelling. No acut e fracture or dislocation. Stable bone island within the proximal tibia. IMPRESSION: 1. No acute fracture or dislocation within the right knee. 2. Moderate knee effusion and anterior soft tissue swelling. ACT 112: Negative or not required by law. Electronically signed by: Edilson Bailey M.D. 11/03/2023 8:11 AM
[2023-11-03] MEDS: ENOXAPARIN INJ 40 MG/0.4 ML SYR SQ SCH (09:18)
[2023-11-03] MEDS: ONDANSETRON INJ 2 MG/ML 2 ML VIAL IV PRN (09:41)
[2023-11-03] MEDS: KETOROLAC TROMETHAMINE 15 MG/ML VIAL IV PRN (09:42)
[2023-11-03] MEDS: ACETAMINOPHEN 500 MG TAB PO PRN (09:42)
[2023-11-03 09:50] LABS: Appearance Urine Cloudy (Clear); Bacteria Urine Automated None Seen (None Seen); Bilirubin Urine Negative (Negative); Blood Urine Negative (Negative); Calcium Oxalate Crystals Urine Present (None Prsent); Color Urine Dark Yellow; Epithelial Cell Urine Auto 0-2 /hpf (0-2); Glucose Urine UA Negative (Negative); Ketones Urine Negative (Negative); Leukocyte Esterase Urine Negative (Negative); Mucus Urine Present (None Prsent); Nitrite Urine Negative (Negative); Protein Urine 1+ (Negative); Specific Gravity Urine 1.034 (1.000-1.030); Urobilinogen Urine Negative (Negative); WBC Urine Automated 0-5 /hpf (0-5)
[2023-11-03 09:54] LABS: Calcium 8.2 mg/dl (8.6-10.3); Potassium 3.5 mmol/L (3.5-5.1)
[2023-11-03 10:00] LABS: BUN Creatinine Ratio 15.9 (10-20); Creatinine Clr Calc Pharmacy 186.6 ml/min; Est GFR (African American) 145.6 ml/min; Est GFR (Non-African American) 125.6 ml/min
[2023-11-03 10:09] LABS: Amphetamines+Metham, Urine Pos (Neg); Barbiturates, Urine Neg (Neg); Benzodiazepine, Urine Pos (Neg); Cocaine, Urine Pos (Neg); Fentanyl, Urine Pos (Neg); MDMA (Ecstacy), Urine Pos (Neg); Marijuana, Urine Pos (Neg); Methadone, Urine Neg (Neg); Opiate, Urine Pos (Neg); Phencyclidine, Urine Neg (Neg)
--- NOTE | 2023-11-03 11:23 | Ultrasound Report ---
BILATERAL LOWER EXTREMITY VENOUS DOPPLER HISTORY: Lower extremity swelling COMPARISON STUDY: None. FINDINGS: There is normal compressibility, flow, and augmentation within the bilateral lower extremit y deep venous systems. IMPRESSION: No DVT within the right or left lower extremity. ACT 112: Negative or not required by law. Electronically signed by: Edilson Bailey M.D. 11/03/2023 11:21 AM
--- NOTE | 2023-11-03 14:00 | Discharge Summary ---
Date of Service November 03, 2023 Admission HPI Per Admitting Provider History obtained from patient friend and records. Unable to obtain history from patient secondary to obtunded state. Medical history significant for chronic pain, history IVDU, HCV status post Mavyret Rx, GERD, mood disorder, chronic anemia (baseline hemoglobin 11-12), ongoing tobacco abuse. Last confinement September 2023 right lower extremity ulceration status post antibiotic Rx and polysubstance abuse. Patient discharged on Keflex course. Has not been to PCP's office recently. Patient was at a drug constitution party 2 nights ago. Reported consumption of methamphetamine, Xanax, and fentanyl drugs. Had to be given given multiple doses of Narcan by his buddies because of overdose. Patient was moving a television yesterday when he felt his right leg gave out. Subsequent fall with head and right knee trauma. No LOC. Patient called friend to pick him up at another friend's place. Patient had verbalized intent to go to rehab facility to get clean. Patient noted by friend to have decreased responsiveness. Patient friend unaware of suicidal intent. Patient brought to ER for evaluation. 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 Exam Per Admitting Provider GENERAL: Obtunded, no respiratory distress SKIN: pallor, warm HEENT: Pale palpebral conjunctivae, no ptosis, dry buccal mucosa NECK : Supple, no tenderness CHEST : CTA, no tenderness HEART : RRR, no obvious murmurs ABDOMEN: Some distention, nontender EXTREMITIES : Multiple track lara over extremities, bilateral LE swelling, tender right knee swelling NEUROLOGIC : Obtunded, no facial asymmetry, gait and stance not assessed Principal Diagnosis Drug overdose Discharge Exam GENERAL: alert, awake, no SI/HI, no respiratory distress SKIN: pallor, warm HEENT: Pale palpebral conjunctivae, no ptosis, moist buccal mucosa NECK : Supple, no tenderness CHEST : CTA, no tenderness HEART : RRR, no obvious murmurs ABDOMEN: Some distention, nontender EXTREMITIES : Multiple track lara over extremities, bilateral LE swelling, tender right knee swelling NEUROLOGIC : Obtunded, no facial asymmetry, gait and stance not assessed Discharge Data Allergies Allergy/AdvReac Type Severity Reaction Status Date / Time chlorpromazine Allergy Severe facial Verified 11/03/23 01:55 [From Thorazine] swelling and agitation amoxicillin Allergy Intermediate leg and Verified 11/03/23 01:55 feet swelling Consultations 11/03/23 01:48 ED Decision to Admit Stat Ordered Studies 11/02/23 23:31 CT head/brain wo con Stat 11/03/23 04:20 US venous doppler LE BI Stat Hospital Course (1) Encephalopathy: per prior attending with addendum: History of substance abuse Traumatic right knee swelling rule out bony injury bilateral LE swelling (possibly chronic, lymphedema as per documentation from last admission), rule out DVT History GERD, not on maintenance medication chronic anemia, hemoglobin at baseline HCV status post Mavyret Rx mood disorder, not on maintenance medications, patient friend unaware of suicidality Hypokalemia possibly from decreased p.o. intake Hyperglycemia rule out DM ongoing tobacco abuse OBS Medical telemetry Follow urine tox Obtain history from patient once more awake. replace potassium Follow official right knee x-ray results LE venous Dopplers rule out DVT Check hemoglobin A1c Nicotine patch as needed Social service re: discharge planning, rehab placement DVT prophylaxis. Lovenox subcu Full code Contact persons for patient include: Mr. Vimal Prajapati (father), contact #[phone] Ms. Tanja Anderson (friend), contact #[phone] Addendum 11/03/2023: Patient was seen and examined at bedside. Patient was alert and awake, oriented x 4, no SI/HI. Patient reports that he took overdoses on the recreational drugs as a part of recreation rather than with intention to harm him. He states he does not remember correctly but he took many tablets of Xanax 0.25 mg, also took lots of methamphetamines and fentanyl. Patient now does not want to go to rehab and would like to leave hospital today. Patient has been explained that there is risks of respiratory depression/arrhythmia/unconsciousness and possibility of . Also patient has been explained that he will need ongoing evaluation of his blood tests and follow-up blood culture. He needs further workup, he denied cough or febrile illness. He reports having been treated for pneumonia in the recent past. He was made aware to get chest imaging in 4 weeks time upon discharge to confirm the resolution of his pneumonia. He was also conveyed following instructions prior to discharge: Stay away from drugs, recommend rehab. Recommend you stay in the hospital but since your are leaving AMA, if any concerns of diaphoresis, chest pain, difficulty breathing, abdominal pain, generalized lethargy or any other medical issues, recommend to report back to emergency immediately. Text document was generated using [employer] voice recognition software. It may contain grammatical or spelling errors. Kindly contact undersigned for clarification of any documentation item in question. Home Health Attestation I certify that this patient is under my care and that I, or a physicians assistant purchasing manager working with me, had a face to-face encounter that meets the home health [id number] encounter requirements with this patient. The encounter with the patient was in whole, or in part, for the following medical condition, which is the primary reason for home health care (list medical condition): I certify that, based on my findings, the following services are medically necessary home health services: My clinical findings support the need for the above services because: Further, I certify that my clinical findings support that this patient is homebound (i.e. absences from home require considerable and taxing effort and are for medical reasons or religion services or infrequently or of short duration when for other reasons) because: Certification for Home Health Services: Based on the above findings, I certify that this patient is confined to the home and needs intermittent retirement care, physical therapy and/or speech therapy or continues to need occupational therapy. The patient is under my care, and I have initiated the establishment of the plan of care. This patient will be followed by a physician who will periodically review the plan of care. Total Time Total Time Spent Total Time Spent (In Minutes): 45 Discharge Plan Discharge Items Patient Disposition: Against Medical Advice Reason For Visit: AMS Discharge Diagnosis: Drug overdose Activity: Resume your previous activity Non-emergency contact: Primary Care Provider Call non-emergency contact if: you have any medication questions Follow-up/Referrals: Nir Lucio MD [Primary Care Provider] - Diet: Regular Addtl Attending Provider Instructions: Stay away from drugs, recommend rehab. Recommend you stay in the hospital but since your are leaving AMA, if any concerns of diaphoresis, chest pain, difficulty breathing, abdominal pain, generalized lethargy or any other medical issues, recommend to report back to emergency immediately. Pending Studies at Discharge: No Stand-Alone Forms: My [facility], Smoking Cessation Medications and DC Order Prescriptions: No Action No Known Home Medications Discharge Orders: Left Against Medical Advice (Routine); Ordered 11/03/23 Ordered By: Munir Chaney Admission Data Admit Date/Time: 11/03/23 04:16 Attending Provider: Munir Chaney Admit Provider: Jericho Canseco Primary Care Provider: Nir Lucio Other Providers: Jericho Canseco
--- OUTSIDE RECORDS SUMMARY | 2023-11-03 20:21 | External Medical Summary | Summary of Care ---
Author Name Unknown Organization [facility] Address [address] [place] [address] Phone [phone] Care Team Providers Care Grain Roaster Name Role Phone Nir Lucio MD Primary Care Provider [phone] Reason for Visit * Reason Onset Date Comments Hospital Follow-Up 09/27/2023 No AUBREY needed Encounter Details Date Type Department Care Team (Late st Contact Info) Description 09/27/2023 Telephone Ancillary [facility] [address] [place] [address] Altagracia Arias, RN Hospital Follow-Up (No AUBREY needed) Allergies Active Allergy Reactions Criticality Noted Date Comments Chlorpromazine Other (Please comment) 5 Facial Swelling, Agitation documented as of this encounter (statuses as of 09/27/2023) Medications Medication Sig Dispensed Refills Start Date [...] as of this encounter (statuses as of 09/27/2023) Active Problems Problem Noted Date Diagnosed Date Obesity, Class I, BMI 30.0-34.9 (see actual BMI) 07/30/2023 Polysubstance abuse 06/12/2023 Methamphetamine abuse 03/06/2023 IV drug abuse 02/07/2023 Tobacco use disorder 02/06/2023 Chronic hepatitis C 02/04/2013 Overview: Followed by GI documented as of this encounter (statuses as of 09/27/2023) Resolved Problems Problem Noted Date Diagnosed Date Resolved Date Acne necrotica 03/06/2023 07/30/2023 History of intravenous drug use in remission 3 02/07/2023 Overview: On subutex Opioid use disorder, moderate, dependence 12/13/2017 01/25/2021 Bilateral carpal tunnel syndrome 07/04/2016 01/26/2021 Overview: + EMG 10/22/2013 - has been using braces w/ good effect. Cigarette smoker 08/30/2015 02/06/2023 Overview: Quit 02/2015 - resumed December 2015 Morbid obesity 08/30/2015 07/30/2023 Bipolar 2 disorder 08/30/2015 Overview: Followed by Dr. Vargas - [facility] Dyshidrotic eczema 11/24/2014 7 Acne 11/24/2014 10/03/2016 Chewing tobacco use 03/04/2013 02/07/20 23 Opioid type dependence, continuous 03/04/2013 02/06/2023 Overview: H/O IVDA - on subutex Rash and nonspecific skin eruption 2007 10/03/2016 documented as of this encounter (statuses as of 09/27/2023) Immunizations Name Administration Dates Next Due TDAP (age 10 and older)(Boostrix) 01/26/2021 documented as of this encounter Social History Tobacco Use Types Packs/Day Years Used Date Smoking Tobacco: Every Day Cigarettes 0.3 7.7 Started: 01/03/2016 Smokeless Tobacco: Current Snuff Comments:1 [...] encounter Miscellaneous Notes * Telephone Encounter - Altagracia Arias, RN - 09/27/2023 8:08 AM EDT Transitions of Care Note Reason for Referral:Recent Admission Phone visit for follow up: Inpatient Hospitalization Admitted to: [facility], Date: 09/24 Discharged to: home, Date: 09/25 AUBREY call not indicated due to admitted < 24 hrs. Altagracia Arias, RN documented in this encounter Plan of Treatment Upcoming Encounters Date Type Department Care Team (Latest Contact Info) Description 10/01/2023 3:20 PM EDT Office Visit Family [facility] [address] [id number] Nir Lucio MD [address] [address] 01/11/2024 9:30 AM EDT Hospital Encounter [facility] End[facility] [address] [id number] Enrrique Velasquez MD [address] [address] 01/11/2024 9:30 AM EDT - 01/11/2024 10:00 AM EDT Surgery [facility]O [facility], End[facility] [address] [phone] Enrrique Velasquez MD [address] [address] ESOPHAGOGASTRODUODENOSCOPY (EGD), FLEXIBLE, TRANSORAL, DIAGNOSTIC Scheduled Procedures [...] season) 2023 11/06/2020 Influenza Vaccine (FLU shot) (Season Ended) 2024 DTaP,Tdap,and Td Vaccines (2 - Td or Tdap) 01/26/2031 01/26/2021 GARDASIL-HPV IMMUNIZATION SERIES Aged Out No longer eligible based on patient's age to complete this topic MENINGOCOCCAL (MENACTRA/MENVEO) Aged Out No longer eligible based on patient's age to complete this topic documented as of this encounter Medical Devices Not on filedocumented as of this encounter Care Teams Grain Roaster Relationship Specialty Start Date End Date Nir Lucio MD [address] [id number] PCP - General Family Medicine 09/29/21 documented as of this encounter
--- NOTE | 2023-11-04 22:34 | Electrocardiogram Report ---
Test Reason : Blood Pressure : / mmHG Vent. Rate : 092 BPM Atrial Rate : 092 BPM P-R Int : 150 ms QRS Dur : 096 ms QT Int : 334 ms P-R-T Axes : 062 070 056 degrees QTc Int : 413 ms Normal sinus rhythm Normal ECG When compared with ECG of 02-JUL-2023 19:12, No significant change was found Confirmed by Robin Abreu ([id number]) on 11/04/2023 10:33:52 PM Referred By: REFERRED SELF Confirmed By:Robin Abreu
== END 2023-11-03 13:00 | disposition left against medical advice (07) ==
LOC: EDINP 22:53 → ED 22:53 → SUATTDRO 11-03 04:16 → EDINP 11-03 05:09